=== PATIENT | male | born 1935 | race African-American/Black ===

== ENCOUNTER 2017-03-03 10:49 | Emergency (ER) | payer BC, MEDICARE ==
[~2017-03-03] VITALS: Ht 180.3 cm; Wt 77.1 kg
[~2017-03-03 10:49] MED LIST: ALLO300T PO; AMLO5TAB2 PO; BRIM10DR7 OU; CIPR500T PO; CIPR500T94 PO; CLON0.5T3 PO; DONE10TA7 PO; FLUT16SP NS; HYDR-2666 PO; LATA2.5D3 OS; LISI10TA2 PO; MEMA10TA PO; METO25TA4 PO; NIAC500T PO; OLOP30.5 NS; OXYB5TAB PO; POTA20TA12 PO; POTA20TA82 PO; TAMS0.4C2 PO; antibiotic cream; metoprolol PO; triamcinolone cream TOP
[2017-03-03 11:32] LABS: BASO # 0.1 x10^3/uL (0.0-0.2); BASO % 1 % (0-3); EOS % 3 % (0-3); HEMATOCRIT 40.5 % (39.0-53.0); HEMOGLOBIN 13.6 g/dL (13.0-17.5); LYMPH # 1.3 x10^3/uL (1.0-4.8); LYMPH % 12 % (24-48); MEAN CORPUSCULAR HEMOGLOBIN 30 pg (25-35); MEAN CORPUSCULAR HGB CONC 34 g/dL (31-37); MEAN CORPUSCULAR VOLUME 90 fL (79-100); MONO % 9 % (0-9); NEUT % 75 % (31-73); PLATELET COUNT 163 x10^3/uL (140-400); RED CELL DISTRIBUTION WIDTH 13.9 % (11.5-14.5); WHITE BLOOD COUNT 10.9 x10^3/uL (4.0-11.0)
--- NOTE | 2017-03-03 11:38 | RAD ---
Portable AP upright view CXR: Clinical indications: Near syncope. Comparison: August 08, 2015. Findings: An old granuloma of the left lung base is seen. This is stable. No acute lung infiltrate or pleural effusion or pulmonary edema or lung mass or pneumothorax is seen. The heart size, pulmonary vasculature, mediastinum and both brenton are unremarkable. Impression: No acute radiographic abnormality is seen.
[2017-03-03 11:43] LABS: CREATININE 1.3 mg/dL (0.7-1.3); GFR 64.4; INR 1.1 (0.8-1.1); POTASSIUM 3.5 mmol/L (3.5-5.1); PROTHROMBIN TIME PATIENT 13.8 SEC (11.7-14.0)
[2017-03-03 11:58] LABS: ALBUMIN 3.5 g/dL (3.4-5.0); ALBUMIN/GLOBULIN RATIO 1.1 (1.0-1.7); MAGNESIUM 1.8 mg/dL (1.8-2.4); TOTAL BILIRUBIN 0.6 mg/dL (0.2-1.0); TOTAL PROTEIN 6.8 g/dL (6.4-8.2)
[2017-03-03 12:13] LABS: BILIRUBIN,URINE SMALL (NEG); GLUCOSE,URINE NEGATIVE (NEG); NITRITE,URINE NEGATIVE (NEG); PH,URINE 5.5; PROTEIN,URINE 30 mg/dL (NEG-TRACE); UROBILINOGEN,URINE 0.2 mg/dL (0.2 mg/dL)
[2017-03-03 12:14] LABS: BARBITURATES NEG (NEG); BENZODIAZEPINES NEG (NEG); CANNABINOIDS NEG (NEG); COCAINE NEG (NEG); ETHANOL, URINE NEG (NEG); METHADONE NEG (NEG); OPIATES NEG (NEG); PHENCYCLIDINE NEG (NEG)
[2017-03-03 12:33] LABS: BACTERIA,URINE FEW /HPF (0-FEW); RBC,URINE 0 /HPF (0-2); SQUAMOUS EPITHELIAL CELL,UR FEW /LPF
--- NOTE | 2017-03-03 12:55 | RAD ---
Clinical indications: Near syncope. Weakness. Technique: Noncontrast axial cross sectional scanning of the head was performed. RS Compliance Statement: One or more of the following individualized dose reduction techniques were utilized for this examination: 1. Automated exposure control 2. Adjustment of the mA and/or kV according to patient size 3. 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 Smaller subarachnoid cyst of the right middle cranial fossa is seen. These findings are stable. No acute intracranial hemorrhage or midline shift or new mass-effect or progressive hydrocephalus or new extra-axial fluid collection is seen. Mild periventricular white matter hypodensity is seen consistent with chronic small vessel ischemic disease in this age group. No new focal hypodense area or sulci effacement is seen to indicate an acute infarct or edema radiographically. No skull fracture or pneumocephalus is seen. No opacification of the mastoid sinuses or the paranasal sinuses is seen. The maxillary sinuses are not completely seen in this study. Impression: No new intracranial abnormality is seen. Chronic small vessel ischemic disease. Stable subarachnoid cysts.
[2017-03-03 13:39] VITALS: BP 143/82
--- NOTE | 2017-03-03 16:01 | ED.ADGEN ---
Past Medical History Past Medical History: CVA, Glaucoma, Hypertension, Stroke, TIA, Other Additional Past Medical Histor: Deviated nasal septum, BPH, gout, blepharospasm Past Surgical History: Other Additional Past Surgical Histo: Bilat.Cataract & Detached retina surgeries. Alcohol Use: None Drug Use: None Adult General Chief Complaint Chief Complaint: NEAR SYNCOPE HPI HPI Patient is a 81 year old man, history of dementia, CVA, hypertension, facial tic, who presents to the emergency department with his family with report of a near-syncopal episode while at mandaeism. Per family report, as patient is nonverbal, patient was standing for approximately 5 minutes, in a warm mandaeism with his coat on, was noted to have sweating, and then began to fall. Patient was caught by family and lowered into his seat. Patient did not have full loss of consciousness. No vomiting, aside from diuresis, no other physical changes identified. Patient has no recent history of trauma, no similar symptoms previously. Not exhibiting any weakness, patient ambulates without difficulty baseline. Patient is following commands. Review of Systems Review of Systems Unable to respond verbally. Allergies Allergies Allergies Coded Allergies Type Severity Reaction Last Updated Verified lisinopril Allergy Severe SWELLING OF FACE AND LIPS 10/31/15 Yes Physical Exam Physical Exam Constitutional: Well developed, well nourished, no acute distress, non-toxic appearance. [] Patient noted to be diaphoretic. HENT: Normocephalic, atraumatic, bilateral external ears normal, oropharynx moist, no oral exudates, nose normal. [] Eyes: PERRLA, EOMI, conjunctiva normal, no discharge. [] Neck: Normal range of motion, no tenderness, supple, no stridor. [] Cardiovascular:Heart rate regular rhythm, no murmur, S1, S2, rubs or gallops. [] Lungs & Thorax: Bilateral breath sounds clear to auscultation , no wheezing, rhonchi, rales. No chest crepitus or tenderness. [] Abdomen: Bowel sounds normal, soft, no tenderness, no rebound, rigidity, no guarding, no masses, no pulsatile masses. [] Skin: Warm, diaphoresis, no erythema, no rash. [] Back: No tenderness, no CVA tenderness. [] Extremities: No tenderness, no cyanosis, no clubbing, ROM intact, no edema. Negative Homans sign. 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 Psychologic: Affect normal, judgement normal, mood normal. [] Current Patient Data Vital Signs Vital Signs Date Time Temp Pulse Resp B/P Pulse Ox O2 Delivery O2 Flow Rate FiO2 03/03/17 13:39 76 143/82 03/03/17 13:18 97 Room Air 03/03/17 10:50 98.0 20 98.0 Lab Values Laboratory Tests Test 03/03/17 11:25 03/03/17 11:55 White Blood Count 10.9x10^3/uL (4.0-11.0) Red Blood Count 4.50x10^6/uL (4.30-5.70) Hemoglobin 13.6g/dL (13.0-17.5) Hematocrit 40.5% (39.0-53.0) Mean Corpuscular Volume 90fL (79-100) Mean Corpuscular Hemoglobin 30pg (25-35) Mean Corpuscular Hemoglobin Concent 34g/dL (31-37) Red Cell Distribution Width 13.9% (11.5-14.5) Platelet Count 163x10^3/uL (140-400) Neutrophils (%) (Auto) 75% (31-73) H Lymphocytes (%) (Auto) 12% (24-48) L Monocytes (%) (Auto) 9% (0-9) Eosinophils (%) (Auto) 3% (0-3) Basophils (%) (Auto) 1% (0-3) Neutrophils # (Auto) 8.1x10^3uL (1.8-7.7) H Lymphocytes # (Auto) 1.3x10^3/uL (1.0-4.8) Monocytes # (Auto) 1.0x10^3/uL (0.0-1.1) Eosinophils # (Auto) 0.3x10^3/uL (0.0-0.7) Basophils # (Auto) 0.1x10^3/uL (0.0-0.2) Prothrombin Time 13.8SEC (11.7-14.0) Prothrombin Time INR 1.1 (0.8-1.1) PTT 27SEC (24-38) Sodium Level 141mmol/L (136-145) Potassium Level 3.5mmol/L (3.5-5.1) Chloride Level 103mmol/L (98-107) Carbon Dioxide Level 29mmol/L (21-32) Anion Gap 9 (6-14) Blood Urea Nitrogen 21mg/dL (8-26) Creatinine 1.3mg/dL (0.7-1.3) Estimated GFR (Cockcroft-Gault) 64.4 BUN/Creatinine Ratio 16 (6-20) Glucose Level 118mg/dL (70-99) H Calcium Level 9.0mg/dL (8.5-10.1) Magnesium Level 1.8mg/dL (1.8-2.4) Total Bilirubin 0.6mg/dL (0.2-1.0) Aspartate Amino Transferase (AST) 17U/L (15-37) Alanine Aminotransferase (ALT) 25U/L (16-63) Alkaline Phosphatase 92U/L (46-116) Troponin I Quantitative < 0.017ng/mL (0.000-0.055) ZT-Hok-G-Type Natriuretic Peptide 169pg/mL (0-449) Total Protein 6.8g/dL (6.4-8.2) Albumin 3.5g/dL (3.4-5.0) Albumin/Globulin Ratio 1.1 (1.0-1.7) Urine Collection Type U cath Urine Color Donna Urine Clarity Clear Urine pH 5.5 Urine Specific [place] 1.020 Urine Protein 30mg/dL (NEG-TRACE) Urine Glucose (UA) Negativemg/dL (NEG) Urine Ketones (Stick) Tracemg/dL (NEG) Urine Blood Negative (NEG) Urine Nitrite Negative (NEG) Urine Bilirubin Small (NEG) Urine Urobilinogen Dipstick 0.2mg/dL (0.2 mg/dL) Urine Leukocyte Esterase Small (NEG) Urine RBC 0/HPF (0-2) Urine WBC 1-4/HPF (0-4) Urine Squamous Epithelial Cells Few/LPF Urine Bacteria Few/HPF (0-FEW) Urine Hyaline Casts Few/HPF Urine Mucus Mod/LPF Urine Opiates Screen Neg (NEG) Urine Methadone Screen Neg (NEG) Urine Barbiturates Neg (NEG) Urine Phencyclidine Screen Neg (NEG) Urine Amphetamine/Methamphetamine Neg (NEG) Urine Benzodiazepines Screen Neg (NEG) Urine Cocaine Screen Neg (NEG) Urine Cannabinoids Screen Neg (NEG) Urine Ethyl Alcohol Neg (NEG) Laboratory Tests 03/03/17 11:25 Laboratory Tests 03/03/17 11:25 EKG EKG EC: Sinus rhythm, heart rate 66 bpm, left axis deviation with left anterior vesicular block noted, QTc of 408, UT of 216, QRS of 114, patient with contour normality is noted in the anterior septal leads, no significant ST elevations or depressions, abnormal ECG, does not meet STEMI criteria. As interpreted by me. [] Radiology/Procedures Radiology/Procedures [] [facility] [address] [place], [place] [id number] IMAGING REPORT Signed PATIENT: SATHISH PABLO ACCOUNT: [id number] : 1935 LOCATION: ER AGE: 81 SEX: M EXAM STATUS: REG ER ORD. PHYSICIAN: AMY RENTERIA DO REASON: Near syncope/weakness PROCEDURE: CT HEAD WO CONTRAST Clinical indications: Near syncope. Weakness. Technique: Noncontrast axial cross sectional scanning of the head was performed. PQRS Compliance Statement: One or more of the following individualized dose reduction techniques were utilized for this examination: 1. Automated exposure control 2. Adjustment of the mA and/or kV according to patient size 3. 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 Smaller subarachnoid cyst of the right middle cranial fossa is seen. These findings are stable. No acute intracranial hemorrhage or midline shift or new mass-effect or progressive hydrocephalus or new extra-axial fluid collection is seen. Mild periventricular white matter hypodensity is seen consistent with chronic small vessel ischemic disease in this age group. No new focal hypodense area or sulci effacement is seen to indicate an acute infarct or edema radiographically. No skull fracture or pneumocephalus is seen. No opacification of the mastoid sinuses or the paranasal sinuses is seen. The maxillary sinuses are not completely seen in this study. Impression: No new intracranial abnormality is seen. Chronic small vessel ischemic disease. Stable subarachnoid cysts. DICTATED and SIGNED BY: DIANN ROTH MD DATE: 03/03/17 1249 CC: AMY RENTERIA DO; GERALD MANCERA MD ~ Impressions: [facility] [address] [place], [place] [id number] IMAGING REPORT Signed PATIENT: SATHISH PABLO ACCOUNT: [id number] : 1935 LOCATION: ER AGE: 81 SEX: M EXAM STATUS: PRE ER ORD. PHYSICIAN: AMY RENTERIA DO REASON: Near syncope PROCEDURE: PORTABLE CHEST 1V Portable AP upright view CXR: Clinical indications: Near syncope. Comparison: August 08, 2015. Findings: An old granuloma of the left lung base is seen. This is stable. No acute lung infiltrate or pleural effusion or pulmonary edema or lung mass or pneumothorax is seen. The heart size, pulmonary vasculature, mediastinum and both brenton are unremarkable. Impression: No acute radiographic abnormality is seen. DICTATED and SIGNED BY: DIANN ROTH MD DATE: 03/03/17 1135 CC: AMY RENTERIA DO; GERALD MANCERA MD ~ Course & Med Decision Making Course & Med Decision Making Pertinent Labs and Imaging studies reviewed. (See chart for details) Patient with possible vasovagal syncope, had been standing in a warm mandaeism wearing his winter jacket, when events occurred. Patient is denying complaints, he is nonverbal, he is able to shake yes and no, and is following all commands appropriate. Due to history of previous CVA, and limited ability to interpret patient due to previous deficits, CT of the head obtained which was unremarkable , laboratory studies revealed mild ketonuria, consistent with report from patient's family that had not been drinking water over the past several days, laboratory studies are unremarkable. Initially after discussion, with family at bedside, they were in agreement patient be admitted to the hospital for observation and continued evaluation. However on reassessment, patient's states that she would like to take him home. As patient has remained stable in the emergency department, without any concerning findings, patient was ambulated in the emergency department was able to ambulate without difficulty, without recurrence of any concerning symptoms. After clear and detailed return instructions were given at bedside along with detailed return precautions, patient was discharged home with his family in stable condition follow-up with his PCP, and return to the ED if concerning symptoms to develop. Dragon Disclaimer Dragon Disclaimer This electronic medical record was generated, in whole or in part, using a voice recognition dictation system. Departure Impression: Primary Impression: Near syncope AMY RENTERIA DO Mar 03, 2017 16:01
--- NOTE | 2017-03-04 06:41 | EKG ---
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
== END 2017-03-03 13:43 | disposition home or self-care (01) ==
LOC: ER 10:49
DX: R55 Syncope and collapse (principal); M10.9 Gout, unspecified; Z86.73 Personal history of transient ischemic attack (TIA), and cerebral infarction without residual deficits; H40.9 Unspecified glaucoma; I10 Essential (primary) hypertension; F03.90 Unspecified dementia, unspecified severity, without behavioral disturbance, psychotic disturbance, mood disturbance, and anxiety; Z88.8 Allergy status to other drugs, medicaments and biological substances
CPT/HCPCS: 36415; 51701; 70450; 71010; 80053; 80305; 81001; 83735; 83880; 84484; 85027; 85610; 85730; 87086; 93005; G0481; 99285-25

== ENCOUNTER 2017-05-14 19:33 | Observation (INO) | payer BC ==
[~2017-05-14] VITALS: Ht 180.3 cm; Wt 69.1 kg
[~2017-05-14 19:33] MED LIST changes: -HYDR-2666 PO; +HYDR-2758 PO; +LATA2.5D3 LEFTEYE; -LATA2.5D3 OS
[2017-05-14 20:19] LABS: BASO % 0 % (0-3); EOS % 3 % (0-3); HEMATOCRIT 42.6 % (39.0-53.0); HEMOGLOBIN 14.3 g/dL (13.0-17.5); LYMPH # 1.3 x10^3/uL (1.0-4.8); LYMPH % 18 % (24-48); MEAN CORPUSCULAR HEMOGLOBIN 30 pg (25-35); MEAN CORPUSCULAR HGB CONC 34 g/dL (31-37); MEAN CORPUSCULAR VOLUME 89 fL (79-100); MONO % 12 % (0-9); NEUT % 68 % (31-73); PLATELET COUNT 157 x10^3/uL (140-400); RED BLOOD COUNT 4.79 x10^6/uL (4.30-5.70); RED CELL DISTRIBUTION WIDTH 14.8 % (11.5-14.5); WHITE BLOOD COUNT 7.3 x10^3/uL (4.0-11.0)
[2017-05-14 20:23] LABS: CALCIUM 9.2 mg/dL (8.5-10.1); CREATININE 1.1 mg/dL (0.7-1.3); GFR 78.1; POTASSIUM 4.4 mmol/L (3.5-5.1)
[2017-05-14 20:28] LABS: ALBUMIN 3.6 g/dL (3.4-5.0); ALBUMIN/GLOBULIN RATIO 0.9 (1.0-1.7); MAGNESIUM 1.9 mg/dL (1.8-2.4); TOTAL BILIRUBIN 0.3 mg/dL (0.2-1.0); TOTAL PROTEIN 7.4 g/dL (6.4-8.2)
[2017-05-14 20:36] LABS: CKMB MASS 0.5 ng/mL (0.0-3.6)
[2017-05-14 22:10] LABS: BILIRUBIN,URINE NEGATIVE (NEG); GLUCOSE,URINE NEGATIVE (NEG); NITRITE,URINE NEGATIVE (NEG); PROTEIN,URINE 100 mg/dL (NEG-TRACE); UROBILINOGEN,URINE 0.2 mg/dL (0.2 mg/dL)
[2017-05-14 22:23] LABS: BACTERIA,URINE 0 /HPF (0-FEW)
--- NOTE | 2017-05-14 22:27 | RAD ---
EXAM: Head CT without contrast. HISTORY: Altered mental status. Syncope. TECHNIQUE: Computed tomographic images of the head were obtained without contrast. *One or more of the following individualized dose reduction techniques were utilized for this examination: 1. Automated exposure control. 2. Adjustment of the mA and/or kV according to patient size. 3. Use of iterative reconstruction technique. COMPARISON: 03/03/2017. FINDINGS: There is no acute or subacute extra-axial or intraparenchymal hemorrhage. There is no mass effect or midline shift. There is no hydrocephalus. There is increased extra-axial space within the left middle cranial fossa measuring 4.1 cm, likely an arachnoid cyst. This is superimposed on temporal lobe predominant cerebral atrophy. There are scattered areas of hypodensity throughout the cerebral white matter, likely due to chronic small vessel disease. There is increased density within the right lobe and there is a left scleral band device. The mastoid air cells are clear. No calvarial lesion is seen. IMPRESSION: 1. Scattered areas of hypodensity within the cerebral white matter, a nonspecific finding likely due to chronic small processes. 2. Bilateral temporal lobe predominant cerebral atrophy. 3. Suspected arachnoid cyst within the left middle cranial fossa, of no clinical significance. 4. Cerebral volume loss. 5. Note is made that MRI is more sensitive for acute infarction. Electronically signed by: Nida Laureano MD (05/14/2017 10:24 PM)
--- NOTE | 2017-05-14 22:49 | PHYS DOC ---
Past Medical History Past Medical History: CVA, Glaucoma, Hypertension, Stroke, TIA, Other Additional Past Medical Histor: Deviated nasal septum, BPH, gout, blepharospasm Past Medical History Alzheimer Disease Blephorspasm Muscle Movement disorder of Mouth Past Surgical History: Other Additional Past Surgical Histo: Bilat.Cataract & Detached retina surgeries. Alcohol Use: None Drug Use: None Adult General Chief Complaint Chief Complaint: MECHANICAL FALL HPI HPI Patient is a 81 year old MALE who presents with Episode of appearing stiff and shaking fell back in chair. No LOC , no loss of bowel or bladder function. states pt fell hit head approx 2 weeks ago After fall pt couldnt get up and called EMS. Per he looked fine, EMS sat him up in chair and he finished his dinner. Then brought him to ER to get checked out. concerned possible seizure Per pt currently at baseline neurologically Review of Systems Review of Systems Constitutional: Denies fever or chills [] Eyes: Denies change in visual acuity, redness, or eye pain [] HENT: Denies nasal congestion or sore throat [] Respiratory: Denies cough or shortness of breath [] Cardiovascular: No additional information not addressed in HPI [] GI: Denies abdominal pain, nausea, vomiting, bloody stools or diarrhea [] : Denies dysuria or hematuria [] Musculoskeletal: Denies back pain or joint pain [] Integument: Denies rash or skin lesions [] Neurologic: Denies headache, focal weakness or sensory changes [ Allergies Allergies Allergies Coded Allergies Type Severity Reaction Last Updated Verified lisinopril Allergy Severe SWELLING OF FACE AND LIPS 10/31/15 Yes Physical Exam Physical Exam Constitutional: Pt alert and answers some questions appropriately, Pt with some blephrospams and abnormal mouth muscle movements ---All baseline per ] HENT: Normocephalic, Abrasion L forehead, bilateral external ears normal, oropharynx moist, no oral exudates, nose normal. [] Eyes: PERRL, conjunctiva normal, no discharge. [] Neck: Normal range of motion, no tenderness, supple, no stridor. [] Cardiovascular:Heart rate regular rhythm, no murmur [] Lungs & Thorax: Bilateral breath sounds clear to auscultation [] Abdomen: Bowel sounds normal, soft, no tenderness, no masses, no pulsatile masses. [] Skin: Warm, dry, no erythema, no rash. [] Back: No tenderness, no CVA tenderness. [] Extremities: No tenderness, no cyanosis, no clubbing, ROM intact, no edema. [] Neurologic: Alert and oriented X 1 no focal deficits noted. Pt dementia limits ability to perform NIH Current Patient Data Vital Signs Vital Signs Date Time Temp Pulse Resp B/P (MAP) Pulse Ox O2 Delivery O2 Flow Rate FiO2 05/14/17 22:15 73 21 162/87 (112) 96 05/14/17 21:30 Room Air 05/14/17 19:55 97.7 97.7 Lab Values Laboratory Tests Test 05/14/17 19:45 05/14/17 22:00 White Blood Count 7.3 x10^3/uL (4.0-11.0) Red Blood Count 4.79 x10^6/uL (4.30-5.70) Hemoglobin 14.3 g/dL (13.0-17.5) Hematocrit 42.6 % (39.0-53.0) Mean Corpuscular Volume 89 fL (79-100) Mean Corpuscular Hemoglobin 30 pg (25-35) Mean Corpuscular Hemoglobin Concent 34 g/dL (31-37) Red Cell Distribution Width 14.8 % (11.5-14.5) H Platelet Count 157 x10^3/uL (140-400) Neutrophils (%) (Auto) 68 % (31-73) Lymphocytes (%) (Auto) 18 % (24-48) L Monocytes (%) (Auto) 12 % (0-9) H Eosinophils (%) (Auto) 3 % (0-3) Basophils (%) (Auto) 0 % (0-3) Neutrophils # (Auto) 4.9 x10^3uL (1.8-7.7) Lymphocytes # (Auto) 1.3 x10^3/uL (1.0-4.8) Monocytes # (Auto) 0.8 x10^3/uL (0.0-1.1) Eosinophils # (Auto) 0.2 x10^3/uL (0.0-0.7) Basophils # (Auto) 0.0 x10^3/uL (0.0-0.2) Sodium Level 140 mmol/L (136-145) Potassium Level 4.4 mmol/L (3.5-5.1) Chloride Level 105 mmol/L (98-107) Carbon Dioxide Level 30 mmol/L (21-32) Anion Gap 5 (6-14) L Blood Urea Nitrogen 24 mg/dL (8-26) Creatinine 1.1 mg/dL (0.7-1.3) Estimated GFR (Cockcroft-Gault) 78.1 BUN/Creatinine Ratio 22 (6-20) H Glucose Level 129 mg/dL (70-99) H Calcium Level 9.2 mg/dL (8.5-10.1) Magnesium Level 1.9 mg/dL (1.8-2.4) Total Bilirubin 0.3 mg/dL (0.2-1.0) Aspartate Amino Transferase (AST) 15 U/L (15-37) Alanine Aminotransferase (ALT) 22 U/L (16-63) Alkaline Phosphatase 95 U/L (46-116) Creatine Kinase 32 U/L (39-308) L Creatine Kinase MB (Mass) 0.5 ng/mL (0.0-3.6) Creatine Kinase MB Relative Index 1.6 % (0-4) Troponin I Quantitative < 0.017 ng/mL (0.000-0.055) Total Protein 7.4 g/dL (6.4-8.2) Albumin 3.6 g/dL (3.4-5.0) Albumin/Globulin Ratio 0.9 (1.0-1.7) L Urine Collection Type U cath Urine Color Yellow Urine Clarity Clear Urine pH 7.0 Urine Specific [place] 1.020 Urine Protein 100 mg/dL (NEG-TRACE) Urine Glucose (UA) Negative mg/dL (NEG) Urine Ketones (Stick) Negative mg/dL (NEG) Urine Blood Negative (NEG) Urine Nitrite Negative (NEG) Urine Bilirubin Negative (NEG) Urine Urobilinogen Dipstick 0.2 mg/dL (0.2 mg/dL) Urine Leukocyte Esterase Small (NEG) Urine RBC 11-20 /HPF (0-2) Urine WBC 1-4 /HPF (0-4) Urine Bacteria 0 /HPF (0-FEW) Urine Hyaline Casts Occasional /HPF Urine Mucus Mod /LPF Laboratory Tests 05/14/17 19:45 Laboratory Tests 05/14/17 19:45 Microbiology 05/14/17 Urine Culture - Preliminary, Resulted 05/14/17 Urine Culture Result 1 (RYLEY) - Preliminary, Resulted EKG EKG EKG- interpreted by ER physician--sinus rhythm no STEMI Radiology/Procedures Radiology/Procedures PATIENT: SATHISH PABLO ACCOUNT: [id number] : 1935 LOCATION: AGE: 81 SEX: M EXAM STATUS: REG ER ORD. PHYSICIAN: DAX KIM MD REASON: syncope PROCEDURE: CT HEAD WO CONTRAST EXAM: Head CT without contrast. HISTORY: Altered mental status. Syncope. TECHNIQUE: Computed tomographic images of the head were obtained without contrast. *One or more of the following individualized dose reduction techniques were utilized for this examination: 1. Automated exposure control. 2. Adjustment of the mA and/or kV according to patient size. 3. Use of iterative reconstruction technique. COMPARISON: 03/03/2017. FINDINGS: There is no acute or subacute extra-axial or intraparenchymal hemorrhage. There is no mass effect or midline shift. There is no hydrocephalus. There is increased extra-axial space within the left middle cranial fossa measuring 4.1 cm, likely an arachnoid cyst. This is superimposed on temporal lobe predominant cerebral atrophy. There are scattered areas of hypodensity throughout the cerebral white matter, likely due to chronic small vessel disease. There is increased density within the right lobe and there is a left scleral band device. The mastoid air cells are clear. No calvarial lesion is seen. IMPRESSION: 1. Scattered areas of hypodensity within the cerebral white matter, a nonspecific finding likely due to chronic small processes. 2. Bilateral temporal lobe predominant cerebral atrophy. 3. Suspected arachnoid cyst within the left middle cranial fossa, of no clinical significance. 4. Cerebral volume loss. 5. Note is made that MRI is more sensitive for acute infarction. Electronically signed by: Nida Lott MD (05/14/2017 10:24 PM) DICTATED and SIGNED BY: NIDA LOTT MD DATE: 05/14/172218 CC: DAX KIM MD; GERALD MANCERA MD ~ PATIENT: SATHISH PABLO ACCOUNT: [id number] : 1935 LOCATION: [address] AGE: 81 SEX: M EXAM STATUS: ADM IN ORD. PHYSICIAN: DAX KIM MD REASON: syncope PROCEDURE: CHEST AP ONLY Portable chest, 05/14/2017: History: Syncope Comparison is made to a study from 03/03/2017. The heart size and pulmonary vascularity are normal. There is calcific plaquing of the aorta. There is mild linear atelectasis and/or scarring in the lung bases. The upper lung ovalle are clear. There is no evidence of pleural fluid. IMPRESSION: Minimal bibasilar linear atelectasis and/or scarring. DICTATED and SIGNED BY: GRETA DE LA TORRE MD DATE: 05/15/17 0759 CC: DAX KIM MD; GERALD MANCERA MD; HEYDI HE MD ~ [] Impressions: ACUTE NEUROLOGIC EVENT SUDDEN COLLAPSE Course & Med Decision Making Course & Med Decision Making Pertinent Labs and Imaging studies reviewed. (See chart for details) [] Dragon Disclaimer Dragon Disclaimer This electronic medical record was generated, in whole or in part, using a voice recognition dictation system. Departure Departure Referrals: GERALD MANCERA MD (PCP) DAX KIM MD May 14, 2017 22:49
--- NOTE | 2017-05-14 23:14 | EKG ---
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
[2017-05-15] MEDS ORDERED: ONDANSETRON PF 4 MG/2 ML VIAL. IV PRN
[2017-05-15 00:35] VITALS: BP 147/85
--- NOTE | 2017-05-15 00:44 | ACF ---
Admission Forms Criteria SEIZURE Clinical Indications for Admission to Inpatient Care (Place 'X' for any and all applicable criteria): Admission is indicated for seizure and ANY ONE of the following(1)(2)(3)(4)(5): [X]I. Inpatient admission required rather than observation care (Also use Seizure: Observation Care Criteria as appropriate) because of ANY ONE of the following: [ ]a) Altered mental status that is severe or persistent [ ]b) New focal neurologic deficit that is severe or persistent [ ]c) Metabolic disorder (eg, hypoglycemia, hyponatremia) that is severe or persistent [ ]d) Recurrent seizure [ ]e) Outpatient antiseizure regimen cannot be established (eg , patient cannot tolerate medication, initiation requires inpatient care) [ ]f) Need for ongoing intravenous infusion of antiseizure medication [ ]g) Cardiac arrhythmias of immediate concern [ ]h) Cerebral bleeding, hydrocephalus, or vasospasm monitoring (14) [ ]i) Increased intracranial pressure or cerebral edema monitoring (15) [X]j) Other treatment or monitoring requiring inpatient admission [ ]II. Status epilepticus [A] or repetitive seizures not controlled with emergent treatment (6)(8) [ ]III. Brain disorder (eg, tumor, edema, and hydrocephalus) that requiring monitoring or intervention available only at inpatient level of care. [ ]IV. Brain insult (eg, severe trauma, stroke, drug toxicity, or withdrawal) that requires monitoring or intervention available only at inpatient level of care (10)(11) Extended stay beyond goal length of stay may be needed for (22) [ ]a) Complications of status epilepticus [ ]b) Refractory status epilepticus [ ]c) Etiology-specific therapy for conditions such as COOKING SHOW HOST infection, head injury,eclampsia, severe metabolic abnormalities, and brain tumor [ ]d) Residual neurologic damage, [ ]e) Initiation of significant change to anticonvulsant treatment [ ]f) Older patients (65 years or older) [ ]g) Patient requiring intubation (eg, to protect airway) The original [employer] content created by [employer] has been revised. The portions of the content which have been revised are identified through the use of italic text or in bold, and [facility] [employer] has neither reviewed nor approved the modified material. All other unmodified content is copyright [facility]. Please see references footnoted in the original [facility] edition 2016 Admission Criteria Met?: Yes KIRILL LIMA May 15, 2017 00:44
[2017-05-15] MEDS ORDERED: AMLO10TA2 PO (00:47)
[2017-05-15] MEDS ORDERED: CITA40TA5 PO (00:47)
[2017-05-15] MEDS ORDERED: BRIM5DRO2 OU (00:47)
[2017-05-15] MEDS ORDERED: CARB15DR3 OP (00:49)
[2017-05-15] MEDS ORDERED: MELA3TAB2 PO (00:49)
[2017-05-15] MEDS ORDERED: LUBI8CAP4 PO (00:49)
[2017-05-15] MEDS ORDERED: HALOPERIDOL LACTATE 5 MG/ML VIAL. IVP ONE (01:15)
[2017-05-15 07:25] VITALS: BP 145/85
--- NOTE | 2017-05-15 08:02 | RAD ---
Portable chest, 05/14/2017: History: Syncope Comparison is made to a study from 03/03/2017. The heart size and pulmonary vascularity are normal. There is calcific plaquing of the aorta. There is mild linear atelectasis and/or scarring in the lung bases. The upper lung ovalle are clear. There is no evidence of pleural fluid. IMPRESSION: Minimal bibasilar linear atelectasis and/or scarring.
[2017-05-15 10:52] VITALS: BP 179/95
[2017-05-15 14:55] VITALS: BP 145/78
--- NOTE | 2017-05-15 16:12 | PDOC2 ---
NEUROLOGY CONSULT Date of Admission Date of Admission DATE: 05/15/17 TIME: 15:55 Reason for Consult Reason for Consult: IMPRESSION: Seizure or seizure like episode, new onset on 05/14/17. Fall HTN CVA, TIA in past. Dementia, AD Blepharospasm, chronic Gout. Abnormal TSH level RECOMMENDATIONS/PLAN: Brain MRI w/wo contrast plus seizure protocol. EEG Lab: see orders. Treat medical diseases. OT/PT Discussed with his at bedside on 05/15/17. HCT: No acute findings. Temporal lobe atrophy. HISTORY OF THE PRESENT ILLNESS: 81-y-old male patient with above medical diseases had a seizure on per his . His described that the patient was sitting eating his dinner, he suddenly lost consciousness with shaking movements in his UE then fell back on floor from his chair. He was confused after this event. No Hx of seizure in the past. No seizure since in the hospital. PAST MEDICAL HISTORY: Please see above. PAST SURGERY HISTORY: Cataracts surgery. Retina surgery for retina detachment. ALLERGY: Unknown MEDICATIONS: Refer to [facility] FAMILY HISTORY: Non contributory. SOCIAL HISTORY: Denies current smoking, drinking, and illicit drug use. REVIEW OF SYSTEMS: Constitutional: No malnutrition, weight loss, cachexia. Head: No traumatic brain or head injury. Skin: No edema, or rash. Ear: No infection. Eyes: Blepharospasm Nose: No bleeding or purulent discharges. Hearing: Hearing decrease. Neck: No recent injury. Cardiac: HTN. Pulmonary: No COPD. GI: No GI ulcer, GI bleeding. Urinary/genital: Hematuria. Endocrinologic: No cousin face, craniofacial dysmorphism, polydactyly. Skeletomuscular: No muscular atrophy, deformity. Neurological: see HP. Psychiatric: Denies drug use/abuse. Otherwise, not [id number] review of systems. PHYSICAL EXAMINATION: General appearance is in chronic acute distress. HEENT: Normocephalic and nontraumatic. Eyes, nose, ears, and throat are unremarkable. Neck is supple. No lymphadenopathy. No crepitus. Cardiovascular: S1, S2, regular rate and rhythm. Pulmonary: Clear to auscultation bilaterally. Abdomen: Bowel sounds are positive. Extremities: No rash, lesions, or edema. No restriction of range of motion NEUROLOGICAL EXAMINATION: Awake. Not able to follow commands well. Not oriented to time, place but knows person. PERRL. EOMI. CN: no focal findings. Muscle tone: fluctuated. Muscle strength: 4+ DTR: 2- Plantar reflex: Neutral response bilaterally Gait: not examined in bed. Sensory exam: no acute abnormal findings. No acute cerebellar signs elicited. F-T-N test not performed due to unable to follow commands. Current Medications Current Medications Current Medications Ondansetron HCl (Zofran) 4 mg PRN Q8HRS PRN IV NAUSEA/VOMITING; Start 05/15/17 at 00:00; Stop 05/15/17 at 23:59 Haloperidol Lactate (Haldol) 5 mg 1X ONCE IVP Last administered on 05/15/17t 01:03; Start 05/15/17 at 01:15; Stop 05/15/17 at 01:16; Status DC Active Scripts Active Reported Melatonin 3 Mg Tablet 3 Mg PO HS Amitiza (Lubiprostone) 8 Mcg Capsule 8 Mcg PO BID PRN Refresh Optive Eye Drops (Carboxymethylcellulos/Glycerin) 15 Ml Drops 15 Ml OP BID Combigan Eye Drops (Brimonidine Tartrate/Timolol) 5 Ml Drops 5 Ml OU BID Citalopram Hbr (Citalopram Hydrobromide) 40 Mg Tablet 40 Mg PO DAILY Amlodipine Besylate 10 Mg Tablet 10 Mg PO DAILY Potassium Chloride 20 Meq Tab.er.prt 20 Meq PO BID Latanoprost 2.5 Ml Drops 1 Drop LEFTEYE HS Namenda (Memantine Hcl) 10 Mg Tablet 10 Mg PO BID Donepezil Hcl 10 Mg Tablet 10 Mg PO HS Allopurinol 300 Mg Tablet 300 Mg PO DAILY Allergies Allergies: Coded Allergies: lisinopril (Verified Allergy, Severe, SWELLING OF FACE AND LIPS, 10/31/15) Vitals VITALS Vital Signs Date Time Temp Pulse Resp B/P (MAP) Pulse Ox O2 Delivery O2 Flow Rate FiO2 05/15/17 14:55 98.0 74 18 145/78 (100) 96 Room Air 98.0 Labs Labs Laboratory Tests Test 05/14/17 19:45 05/14/17 22:00 05/15/17 11:10 White Blood Count 7.3 x10^3/uL (4.0-11.0) Red Blood Count 4.79 x10^6/uL (4.30-5.70) Hemoglobin 14.3 g/dL (13.0-17.5) Hematocrit 42.6 % (39.0-53.0) Mean Corpuscular Volume 89 fL (79-100) Mean Corpuscular Hemoglobin 30 pg (25-35) Mean Corpuscular Hemoglobin Concent 34 g/dL (31-37) Red Cell Distribution Width 14.8 % (11.5-14.5) Platelet Count 157 x10^3/uL (140-400) Neutrophils (%) (Auto) 68 % (31-73) Lymphocytes (%) (Auto) 18 % (24-48) Monocytes (%) (Auto) 12 % (0-9) Eosinophils (%) (Auto) 3 % (0-3) Basophils (%) (Auto) 0 % (0-3) Neutrophils # (Auto) 4.9 x10^3uL (1.8-7.7) Lymphocytes # (Auto) 1.3 x10^3/uL (1.0-4.8) Monocytes # (Auto) 0.8 x10^3/uL (0.0-1.1) Eosinophils # (Auto) 0.2 x10^3/uL (0.0-0.7) Basophils # (Auto) 0.0 x10^3/uL (0.0-0.2) Sodium Level 140 mmol/L (136-145) Potassium Level 4.4 mmol/L (3.5-5.1) Chloride Level 105 mmol/L (98-107) Carbon Dioxide Level 30 mmol/L (21-32) Anion Gap 5 (6-14) Blood Urea Nitrogen 24 mg/dL (8-26) Creatinine 1.1 mg/dL (0.7-1.3) Estimated GFR (Cockcroft-Gault) 78.1 BUN/Creatinine Ratio 22 (6-20) Glucose Level 129 mg/dL (70-99) Calcium Level 9.2 mg/dL (8.5-10.1) Magnesium Level 1.9 mg/dL (1.8-2.4) Total Bilirubin 0.3 mg/dL (0.2-1.0) Aspartate Amino Transf (AST/SGOT) 15 U/L (15-37) Alanine Aminotransferase (ALT/SGPT) 22 U/L (16-63) Alkaline Phosphatase 95 U/L (46-116) Creatine Kinase 32 U/L (39-308) Creatine Kinase MB (Mass) 0.5 ng/mL (0.0-3.6) Creatine Kinase MB Relative Index 1.6 % (0-4) Troponin I Quantitative < 0.017 ng/mL (0.000-0.055) Total Protein 7.4 g/dL (6.4-8.2) Albumin 3.6 g/dL (3.4-5.0) Albumin/Globulin Ratio 0.9 (1.0-1.7) Urine Collection Type U cath Urine Color Yellow Urine Clarity Clear Urine pH 7.0 Urine Specific [place] 1.020 Urine Protein 100 mg/dL (NEG-TRACE) Urine Glucose (UA) Negative mg/dL (NEG) Urine Ketones (Stick) Negative mg/dL (NEG) Urine Blood Negative (NEG) Urine Nitrite Negative (NEG) Urine Bilirubin Negative (NEG) Urine Urobilinogen Dipstick 0.2 mg/dL (0.2 mg/dL) Urine Leukocyte Esterase Small (NEG) Urine RBC 11-20 /HPF (0-2) Urine WBC 1-4 /HPF (0-4) Urine Bacteria 0 /HPF (0-FEW) Urine Hyaline Casts Occasional /HPF Urine Mucus Mod /LPF Vitamin B12 Level 1164 pg/mL (247-911) Thyroid Stimulating Hormone (TSH) 0.264 uIU/mL (0.358-3.74) Laboratory Tests Test 05/14/17 19:45 05/14/17 22:00 05/15/17 11:10 White Blood Count 7.3 x10^3/uL (4.0-11.0) Red Blood Count 4.79 x10^6/uL (4.30-5.70) Hemoglobin 14.3 g/dL (13.0-17.5) Hematocrit 42.6 % (39.0-53.0) Mean Corpuscular Volume 89 fL (79-100) Mean Corpuscular Hemoglobin 30 pg (25-35) Mean Corpuscular Hemoglobin Concent 34 g/dL (31-37) Red Cell Distribution Width 14.8 % (11.5-14.5) Platelet Count 157 x10^3/uL (140-400) Neutrophils (%) (Auto) 68 % (31-73) Lymphocytes (%) (Auto) 18 % (24-48) Monocytes (%) (Auto) 12 % (0-9) Eosinophils (%) (Auto) 3 % (0-3) Basophils (%) (Auto) 0 % (0-3) Neutrophils # (Auto) 4.9 x10^3uL (1.8-7.7) Lymphocytes # (Auto) 1.3 x10^3/uL (1.0-4.8) Monocytes # (Auto) 0.8 x10^3/uL (0.0-1.1) Eosinophils # (Auto) 0.2 x10^3/uL (0.0-0.7) Basophils # (Auto) 0.0 x10^3/uL (0.0-0.2) Sodium Level 140 mmol/L (136-145) Potassium Level 4.4 mmol/L (3.5-5.1) Chloride Level 105 mmol/L (98-107) Carbon Dioxide Level 30 mmol/L (21-32) Anion Gap 5 (6-14) Blood Urea Nitrogen 24 mg/dL (8-26) Creatinine 1.1 mg/dL (0.7-1.3) Estimated GFR (Cockcroft-Gault) 78.1 BUN/Creatinine Ratio 22 (6-20) Glucose Level 129 mg/dL (70-99) Calcium Level 9.2 mg/dL (8.5-10.1) Magnesium Level 1.9 mg/dL (1.8-2.4) Total Bilirubin 0.3 mg/dL (0.2-1.0) Aspartate Amino Transf (AST/SGOT) 15 U/L (15-37) Alanine Aminotransferase (ALT/SGPT) 22 U/L (16-63) Alkaline Phosphatase 95 U/L (46-116) Creatine Kinase 32 U/L (39-308) Creatine Kinase MB (Mass) 0.5 ng/mL (0.0-3.6) Creatine Kinase MB Relative Index 1.6 % (0-4) Troponin I Quantitative < 0.017 ng/mL (0.000-0.055) Total Protein 7.4 g/dL (6.4-8.2) Albumin 3.6 g/dL (3.4-5.0) Albumin/Globulin Ratio 0.9 (1.0-1.7) Urine Collection Type U cath Urine Color Yellow Urine Clarity Clear Urine pH 7.0 Urine Specific [place] 1.020 Urine Protein 100 mg/dL (NEG-TRACE) Urine Glucose (UA) Negative mg/dL (NEG) Urine Ketones (Stick) Negative mg/dL (NEG) Urine Blood Negative (NEG) Urine Nitrite Negative (NEG) Urine Bilirubin Negative (NEG) Urine Urobilinogen Dipstick 0.2 mg/dL (0.2 mg/dL) Urine Leukocyte Esterase Small (NEG) Urine RBC 11-20 /HPF (0-2) Urine WBC 1-4 /HPF (0-4) Urine Bacteria 0 /HPF (0-FEW) Urine Hyaline Casts Occasional /HPF Urine Mucus Mod /LPF Vitamin B12 Level 1164 pg/mL (247-911) Thyroid Stimulating Hormone (TSH) 0.264 uIU/mL (0.358-3.74) CALLIE GALLEGOS MD May 15, 2017 16:12
[2017-05-15] MEDS ORDERED: GADOBUTROL 7.5 MMOL/7.5 ML VIAL IV ONE (16:15)
--- NOTE | 2017-05-15 17:10 | RAD ---
MRI Brain with and without contrast History: Seizure, previous stroke Technique: Multiplanar, multi sequential pre and postcontrast MR imaging was performed of the brain. Comparison: None Findings: There is motion degradation. There is no convincing evidence of recent infarct or cytotoxic edema. Ventricular size is proportionate to the sulcal spaces, mild generalized supratentorial involutional change. There is overall mild T2 and FLAIR hyperintense abnormality of the supratentorial periventricular white matter bilaterally, some extent to the deep white matter greatest of the frontoparietal lobes. There is some encephalomalacia with cortical involvement of the anterior right temporal lobe, also of the anterior left temporal lobe. 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 There is no midline shift or extra-axial fluid collection. There is no convincing significant hemosiderin deposition the brain parenchyma. There are small mucous retention cysts of the anterior maxillary sinuses bilaterally. There has been lens surgery bilaterally. There is abnormal signal in the right globe. Cerebellar tonsils are normal in location. There is preservation of marrow signal of the clivus. There is no significant abnormality of the pineal gland or pituitary gland. Impression: 1. There are foci of encephalomalacia with cortical involvement of the temporal lobes bilaterally with associated gliosis. Findings may be due to sequela of previous trauma or infarcts. 2. Other mild T2 and FLAIR hyperintense abnormality of the supratentorial matter is nonspecific although likely due to chronic microvascular ischemic disease in patient this age. 3. There is generalized supratentorial atrophy. 4. There is abnormal signal in the right globe, could be due to sequela of hemorrhage/chorioretinal detachment. Electronically signed by: Jose Simental MD (05/15/2017 5:06 PM)
[2017-05-15 17:23] LABS: FREE T4 1.02 ng/dL (0.76-1.46)
--- NOTE | 2017-05-15 19:30 | HP ---
ADMIT DATE: 05/15/2017 CHIEF COMPLAINT: Seizure activity. HISTORY OF PRESENT ILLNESS: The patient is a pleasant elderly male who had a witnessed shaking and stiffness by his . She called the ambulance. When they arrived, they set him up in a chair. When he finished his dinner, they left. She brought him to the ER for evaluation. He is now being admitted overnight for observation. This morning, he is doing better but still shaking a little bit. PAST MEDICAL HISTORY: Glaucoma, stroke, hypertension, hyperlipidemia, TIAs, deviated septum, BPH, gout, bilateral cataracts, and detached retina. ALLERGIES: LISINOPRIL. FAMILY HISTORY: Coronary artery disease. SOCIAL HISTORY: Does not drink, smoke, or take drugs. He is retired and lives at home with his . MEDICATIONS: Reviewed. Please see the MRAD. REVIEW OF SYSTEMS: Unreliable at this time as the patient is too confused. PHYSICAL EXAMINATION: VITAL SIGNS: Temperature afebrile, pulse 92, respirations 18, and blood pressure 132/60. GENERAL: He is awake. He is shaking. HEART: Normal S1, S2. LUNGS: Clear. ABDOMEN: Soft. EXTREMITIES: No edema. SKIN: No rashes. PSYCHIATRIC: He is nonverbal at this time. ENDOCRINE: No thyromegaly. LYMPHATICS: No cervical nodes. HEMATOPOIETIC: No bruising. NEUROLOGICAL: He is shaking a little bit. LABORATORY DATA: White count 7, hemoglobin 14, and platelets 157. Electrolytes are pending. Urinalysis: Small amount of leukocyte esterase and 1 to 4 white cells. ASSESSMENT AND PLAN: Possible seizure with incidental finding of abnormal urinalysis consistent with possible urinary tract infection. We will go ahead and admit the patient and consult Neurology. Suspect he will need an MRI. Seizure precautions, IV antibiotics, IV fluids. Continue home medicines. JIM WEINER DO DR: LUIS/brennan JOB#: [id number] / [id number]
[2017-05-15 19:46] VITALS: BP 153/88
--- NOTE | 2017-05-15 21:03 | EEG ---
DATE OF SERVICE: 05/15/2017 EEG NUMBER: [id number]. OBJECTIVE: This is a 81-year-old male patient who had a seizure or seizure-like episode on 05/14/2017. EEG was requested to evaluate seizure activity. METHODS: Twenty electrodes were applied according to the international 10-20 electrode placement system. EKG monitoring, hyperventilation, intermittent photic stimulation, monopolar and bipolar montages are routinely utilized. The record was obtained on a digital system with video monitoring. MEDICATION: No anti-seizure medication. FINDINGS: 1. Background: The patient was recorded in the awake, drowsy and sleep states. The overall background amplitude is 10-20 microvolts. A posterior dominant rhythm of 8 Hz is observed. 2. Abnormality: No specific epileptiform discharges or electrographic seizure seen. No diffuse slowing. 3. Activation: Hyperventilation was not performed because the patient was unable to follow the commands. Intermittent photic stimulation was performed with photic driving. IMPRESSION: This EEG is a borderline study for the awake, drowsy, and sleep states. No focal, lateralizing, specific epileptiform discharge or electrographic seizure is seen. CALLIE GALLEGOS MD DR: MEGHAN/brennan JOB#: [id number] / [id number] TEVIN
[2017-05-15 23:19] VITALS: BP 163/89
[2017-05-16 03:19] VITALS: BP 173/95
[2017-05-16 07:40] VITALS: BP 167/101
[2017-05-16] MEDS ORDERED: LUBIPROSTONE 8 MCG CAPSULE PO PRN (09:45)
[2017-05-16] MEDS ORDERED: MEMANTINE 10 MG TABLET. PO SCH (10:00)
[2017-05-16] MEDS ORDERED: POLYVINYL ALCOHOL 1.4% OPHTH SOLUTION 15ML BOTTLE. OU SCH (10:00)
[2017-05-16] MEDS ORDERED: ALLOPURINOL 300 MG TABLET. PO SCH (10:00)
[2017-05-16] MEDS ORDERED: POTASSIUM CHLORIDE 20 MEQ TABLET.ER. PO SCH (10:00)
[2017-05-16] MEDS ORDERED: BRIMONIDINE 0.2% OPHTH SOLUTION 5ML BOTTLE. OU SCH ×2 (10:00→21:00)
[2017-05-16] MEDS ORDERED: amLODIPine BESYLATE 10 MG TABLET PO SCH (10:00)
[2017-05-16] MEDS ORDERED: TIMOLOL 0.5% OPHTH SOLUTION 5ML BOTTLE. OU SCH (10:00)
[2017-05-16] MEDS ORDERED: CITALOPRAM 20 MG TABLET. PO SCH (10:00)
[2017-05-16 10:53] VITALS: BP 184/97
--- NOTE | 2017-05-16 11:29 | PDOC ---
PROGRESS NOTES Chief Complaint Chief Complaint SZ? Glaucoma, stroke, hypertension, hyperlipidemia, TIAs, deviated septum, BPH, gout, bilateral cataracts, and detached retina. History of Present Illness History of Present Illness seen and examined dw mattress spring encaser notes reviewed Vitals Vitals Vital Signs Date Time Temp Pulse Resp B/P (MAP) Pulse Ox O2 Delivery O2 Flow Rate FiO2 05/16/17 10:53 97.5 75 18 184/97 (126) 98 Room Air 97.5 Physical Exam General: No acute distress, Other (somolent) Heart: Regular rate, Normal S1 Lungs: Clear Abdomen: Normal bowel sounds, Soft Extremities: No clubbing, No cyanosis Skin: No rashes, No breakdown Review of Systems Review of Systems unreliable Assessment and Plan Assessmemt and Plan Problems Medical Problems: (1) Seizure Status: Acute (2) Syncope Status: Acute Seizure? Glaucoma, stroke, hypertension, hyperlipidemia, TIAs, deviated septum, BPH, gout, bilateral cataracts, and detached retina. Plan MRI PTOT Home emds Awit further neuro input labs dc in am? Problems: Comment Review of Relevant I have reviewed the following items davey (where applicable) has been applied. Labs Laboratory Tests Test 05/14/17 19:45 05/14/17 22:00 05/15/17 11:10 White Blood Count 7.3 x10^3/uL (4.0-11.0) Red Blood Count 4.79 x10^6/uL (4.30-5.70) Hemoglobin 14.3 g/dL (13.0-17.5) Hematocrit 42.6 % (39.0-53.0) Mean Corpuscular Volume 89 fL (79-100) Mean Corpuscular Hemoglobin 30 pg (25-35) Mean Corpuscular Hemoglobin Concent 34 g/dL (31-37) Red Cell Distribution Width 14.8 % (11.5-14.5) Platelet Count 157 x10^3/uL (140-400) Neutrophils (%) (Auto) 68 % (31-73) Lymphocytes (%) (Auto) 18 % (24-48) Monocytes (%) (Auto) 12 % (0-9) Eosinophils (%) (Auto) 3 % (0-3) Basophils (%) (Auto) 0 % (0-3) Neutrophils # (Auto) 4.9 x10^3uL (1.8-7.7) Lymphocytes # (Auto) 1.3 x10^3/uL (1.0-4.8) Monocytes # (Auto) 0.8 x10^3/uL (0.0-1.1) Eosinophils # (Auto) 0.2 x10^3/uL (0.0-0.7) Basophils # (Auto) 0.0 x10^3/uL (0.0-0.2) Sodium Level 140 mmol/L (136-145) Potassium Level 4.4 mmol/L (3.5-5.1) Chloride Level 105 mmol/L (98-107) Carbon Dioxide Level 30 mmol/L (21-32) Anion Gap 5 (6-14) Blood Urea Nitrogen 24 mg/dL (8-26) Creatinine 1.1 mg/dL (0.7-1.3) Estimated GFR (Cockcroft-Gault) 78.1 BUN/Creatinine Ratio 22 (6-20) Glucose Level 129 mg/dL (70-99) Calcium Level 9.2 mg/dL (8.5-10.1) Magnesium Level 1.9 mg/dL (1.8-2.4) Total Bilirubin 0.3 mg/dL (0.2-1.0) Aspartate Amino Transf (AST/SGOT) 15 U/L (15-37) Alanine Aminotransferase (ALT/SGPT) 22 U/L (16-63) Alkaline Phosphatase 95 U/L (46-116) Creatine Kinase 32 U/L (39-308) Creatine Kinase MB (Mass) 0.5 ng/mL (0.0-3.6) Creatine Kinase MB Relative Index 1.6 % (0-4) Troponin I Quantitative < 0.017 ng/mL (0.000-0.055) Total Protein 7.4 g/dL (6.4-8.2) Albumin 3.6 g/dL (3.4-5.0) Albumin/Globulin Ratio 0.9 (1.0-1.7) Urine Collection Type U cath Urine Color Yellow Urine Clarity Clear Urine pH 7.0 Urine Specific [place] 1.020 Urine Protein 100 mg/dL (NEG-TRACE) Urine Glucose (UA) Negative mg/dL (NEG) Urine Ketones (Stick) Negative mg/dL (NEG) Urine Blood Negative (NEG) Urine Nitrite Negative (NEG) Urine Bilirubin Negative (NEG) Urine Urobilinogen Dipstick 0.2 mg/dL (0.2 mg/dL) Urine Leukocyte Esterase Small (NEG) Urine RBC 11-20 /HPF (0-2) Urine WBC 1-4 /HPF (0-4) Urine Bacteria 0 /HPF (0-FEW) Urine Hyaline Casts Occasional /HPF Urine Mucus Mod /LPF Vitamin B12 Level 1164 pg/mL (247-911) Thyroid Stimulating Hormone (TSH) 0.264 uIU/mL (0.358-3.74) Free Thyroxine 1.02 ng/dL (0.76-1.46) Free Triiodothyronine (T3) pg/mL 2.67 pg/mL (2.18-3.98) Microbiology 05/14/17 Urine Culture - Preliminary, Resulted 05/14/17 Urine Culture Result 1 (RYLEY) - Preliminary, Resulted Medications Current Medications Ondansetron HCl (Zofran) 4 mg PRN Q8HRS PRN IV NAUSEA/VOMITING; Start 05/15/17 at 00:00; Stop 05/15/17 at 23:59; Status DC Haloperidol Lactate (Haldol) 5 mg 1X ONCE IVP Last administered on 05/15/17 01:03; Start 05/15/17 at 01:15; Stop 05/15/17 at 01:16; Status DC Gadobutrol (Gadavist) 7 mmol 1X ONCE IV Last administered on 05/15/17 16:33; Start 05/15/17 at 16:15; Stop 05/15/17 at 16:16; Status DC Ceftriaxone Sodium 1 gm/ Sodium Chloride 50 ml @ 100 mls/hr Q24H IV Last administered on 05/15/17 18:36; Start 05/15/17 at 18:00 Allopurinol (Zyloprim) 300 mg DAILY PO Last administered on 05/16/17 10:00; Start 05/16/17 at 10:00 Amlodipine Besylate (Norvasc) 10 mg DAILY PO Last administered on 05/16/17 10: 00; Start 05/16/17 at 10:00 Donepezil HCl (Aricept) 10 mg HS PO ; Start 05/16/17 at 21:00 Latanoprost (Xalatan) 1 drop HS OU ; Start 05/16/17 at 21:00 Lubiprostone (Amitiza) 8 mcg PRN BID PRN PO CONSTIPATION Last administered on 10:00; Start 05/16/17 at 09:45 Memantine (Namenda) 10 mg BID PO Last administered on 05/16/17 10:00; Start at 10:00 Potassium Chloride (Klor-Con) 20 meq BIDWMEALS PO Last administered on 10:00; Start 05/16/17 at 10:00 Brimonidine Tartrate (Alphagan) 1 drop BID OU ; Start 05/16/17 at 10:00; Status Cancel Artificial Tears (Artificial Tears) 1 drop BID OU Last administered on 10:00; Start 05/16/17 at 10:00 Citalopram Hydrobromide (CeleXA) 40 mg DAILY PO Last administered on 05/16/17 10:00; Start 05/16/17 at 10:00 Non-Formulary Medication 3 mg HS PO ; Start 05/16/17 at 21:00; Stop 05/16/17 at 21:00; Status DC Timolol Maleate (Timoptic 0.5% Ophth) 1 drop BID OU Last administered on 10:00; Start 05/16/17 at 10:00 Brimonidine Tartrate (Alphagan) 1 drop BID OU ; Start 05/16/17 at 21:00 Active Scripts Active Reported Melatonin 3 Mg Tablet 3 Mg PO HS Amitiza (Lubiprostone) 8 Mcg Capsule 8 Mcg PO BID PRN Refresh Optive Eye Drops (Carboxymethylcellulos/Glycerin) 15 Ml Drops 15 Ml OP BID Combigan Eye Drops (Brimonidine Tartrate/Timolol) 5 Ml Drops 5 Ml OU BID Citalopram Hbr (Citalopram Hydrobromide) 40 Mg Tablet 40 Mg PO DAILY Amlodipine Besylate 10 Mg Tablet 10 Mg PO DAILY Potassium Chloride 20 Meq Tab.er.prt 20 Meq PO BID Latanoprost 2.5 Ml Drops 1 Drop LEFTEYE HS Namenda (Memantine Hcl) 10 Mg Tablet 10 Mg PO BID Donepezil Hcl 10 Mg Tablet 10 Mg PO HS Allopurinol 300 Mg Tablet 300 Mg PO DAILY Vitals/I & O Vital Sign - Last 24 Hours 05/15/17 05/15/17 05/15/17 05/15/17 14:55 19:46 20:00 23:19 Temp 98.0 99.1 98.2 98.0 99.1 98.2 Pulse 74 72 70 Resp 18 18 16 B/P (MAP) 145/78 (100) 153/88 (109) 163/89 (113) Pulse Ox 96 96 95 O2 Delivery Room Air Room Air Room Air Room Air 05/16/17 05/16/17 05/16/17 05/16/17 03:19 07:40 08:00 10:00 Temp 97.7 97.6 97.7 97.6 Pulse 72 88 88 Resp 16 17 B/P (MAP) 173/95 (121) 167/101 (123) 167/101 Pulse Ox 96 96 O2 Delivery Room Air Room Air Room Air 05/16/17 10:53 Temp 97.5 97.5 Pulse 75 Resp 18 B/P (MAP) 184/97 (126) Pulse Ox 98 O2 Delivery Room Air Intake and Output 05/15/17 05/15/17 05/16/17 15:00 23:00 07:00 Intake Total 180 ml 560 ml Balance 180 ml 560 ml JIM WEINER III DO May 16, 2017 11:29
--- NOTE | 2017-05-16 17:24 | PDOC ---
PROGRESS NOTES Assessment Assessment Seizure or seizure like episode, new onset on 05/14/17. Syncope likely. Fall HTN CVA, TIA in past. Dementia, AD Blepharospasm, chronic Gout. Abnormal TSH level RECOMMENDATIONS/PLAN: Treat medical diseases. OT/PT Discussed with his at bedside on 05/15/17. HCT: No acute findings. Temporal lobe atrophy. Brain MRI w/wo contrast plus seizure protocol: No specific findings except brain atrophy. EEG: No seizure activity. HISTORY OF THE PRESENT ILLNESS: 81-y-old male patient with above medical diseases had a seizure on per his . His described that the patient was sitting eating his dinner, he suddenly lost consciousness with shaking movements in his UE then fell back on floor from his chair. He was confused after this event. No Hx of seizure in the past. No seizure since in the hospital. PAST MEDICAL HISTORY: Please see above. PAST SURGERY HISTORY: Cataracts surgery. Retina surgery for retina detachment. ALLERGY: Unknown MEDICATIONS: Refer to [facility] HISTORY: Non contributory. SOCIAL HISTORY: Denies current smoking, drinking, and illicit drug use. REVIEW OF SYSTEMS: Constitutional: No malnutrition, weight loss, cachexia. Head: No traumatic brain or head injury. Skin: No edema, or rash. Ear: No infection. Eyes: Blepharospasm Nose: No bleeding or purulent discharges. Hearing: Hearing decrease. Neck: No recent injury. Cardiac: HTN. Pulmonary: No COPD. GI: No GI ulcer, GI bleeding. Urinary/genital: Hematuria. Endocrinologic: No cousin face, craniofacial dysmorphism, polydactyly. Skeletomuscular: No muscular atrophy, deformity. Neurological: see HP. Psychiatric: Denies drug use/abuse. Otherwise, not [id number] review of systems. PHYSICAL EXAMINATION: General appearance is in chronic acute distress. HEENT: Normocephalic and nontraumatic. Eyes, nose, ears, and throat are unremarkable. Neck is supple. No lymphadenopathy. No crepitus. Cardiovascular: S1, S2, regular rate and rhythm. Pulmonary: Clear to auscultation bilaterally. Abdomen: Bowel sounds are positive. Extremities: No rash, lesions, or edema. No restriction of range of motion NEUROLOGICAL EXAMINATION: Awake. Not able to follow commands well. Not oriented to time, place but knows person. PERRL. EOMI. CN: no focal findings. Muscle tone: fluctuated. Muscle strength: 4+ DTR: 2- Plantar reflex: Neutral response bilaterally Gait: not examined in bed. Sensory exam: no acute abnormal findings. No acute cerebellar signs elicited. F-T-N test not performed due to unable to follow commands. Objective Objective Vital Signs Date Time Temp Pulse Resp B/P (MAP) Pulse Ox O2 Delivery O2 Flow Rate FiO2 05/16/17 10:53 97.5 75 18 184/97 (126) 98 Room Air 97.5 Intake and Output 05/16/17 07:00 Intake Total 740 ml Balance 740 ml Intake Oral 740 ml # Voids 15 Vitals Signs Vitals VS - Last 72 Hours, by Label Date Time Temp Pulse Resp B/P (MAP) Pulse Ox O2 Delivery O2 Flow Rate FiO2 05/16/17 10:53 97.5 75 18 184/97 (126) 98 Room Air 97.5 05/16/17 10:00 88 167/101 05/16/17 08:00 Room Air 05/16/17 07:40 97.6 88 17 167/101 (123) 96 Room Air 97.6 05/16/17 03:19 97.7 72 16 173/95 (121) 96 Room Air 97.7 05/15/17 23:19 98.2 70 16 163/89 (113) 95 Room Air 98.2 05/15/17 20:00 Room Air 05/15/17 19:46 99.1 72 18 153/88 (109) 96 Room Air 99.1 05/15/17 14:55 98.0 74 18 145/78 (100) 96 Room Air 98.0 05/15/17 10:52 98.1 77 16 179/95 (123) 96 Room Air 98.1 05/15/17 07:25 97.8 74 16 145/85 (105) 95 Room Air 97.8 Laboratory Laboratory Microbiology 05/14/17 Urine Culture - Final, Complete 05/14/17 Urine Culture Result 1 (RYLEY) - Final, Complete Medication Medications Current Medications Allopurinol (Zyloprim) 300 mg DAILY PO Last administered on 05/16/17t 10:00; Start 05/16/17 at 10:00; Stop 05/16/17 at 15:30; Status DC Amlodipine Besylate (Norvasc) 10 mg DAILY PO Last administered on 05/16/17 10: 00; Start 05/16/17 at 10:00; Stop 05/16/17 at 15:30; Status DC Artificial Tears (Artificial Tears) 1 drop BID OU Last administered on 10:00; Start 05/16/17 at 10:00; Stop 05/16/17 at 15:30; Status DC Brimonidine Tartrate (Alphagan) 1 drop BID OU ; Start 05/16/17 at 10:00; Status Cancel Brimonidine Tartrate (Alphagan) 1 drop BID OU ; Start 05/16/17 at 21:00; Stop at 21:00; Status DC Cefpodoxime Proxetil (Vantin) 200 mg BID PO ; Start 05/17/17 at 09:00; Stop at 09:00; Status DC Ceftriaxone Sodium 1 gm/ Sodium Chloride 50 ml @ 100 mls/hr Q24H IV Last administered on 05/15/17 18:36; Start 05/15/17 at 18:00; Stop 05/16/17 at 15:30 ; Status DC Citalopram Hydrobromide (CeleXA) 40 mg DAILY PO Last administered on 05/16/17 10:00; Start 05/16/17 at 10:00; Stop 05/16/17 at 15:30; Status DC Donepezil HCl (Aricept) 10 mg HS PO ; Start 05/16/17 at 21:00; Stop 05/16/17 at 21:00; Status DC Latanoprost (Xalatan) 1 drop HS OU ; Start 05/16/17 at 21:00; Stop 05/16/17 at 21:00; Status DC Lubiprostone (Amitiza) 8 mcg PRN BID PRN PO CONSTIPATION Last administered on 10:00; Start 05/16/17 at 09:45; Stop 05/16/17 at 15:30; Status DC Memantine (Namenda) 10 mg BID PO Last administered on 05/16/17 10:00; Start at 10:00; Stop 05/16/17 at 15:30; Status DC Non-Formulary Medication 3 mg HS PO ; Start 05/16/17 at 21:00; Stop 05/16/17 at 21:00; Status DC Potassium Chloride (Klor-Con) 20 meq BIDWMEALS PO Last administered on 10:00; Start 05/16/17 at 10:00; Stop 05/16/17 at 15:30; Status DC Timolol Maleate (Timoptic 0.5% Ophth) 1 drop BID OU Last administered on 10:00; Start 05/16/17 at 10:00; Stop 05/16/17 at 15:30; Status DC Comment Review of Relevant I have reviewed the following items davey (where applicable) has been applied. CALLIE GALLEGOS MD May 16, 2017 17:24
[2017-05-16] MEDS ORDERED: DONEPEZIL HCL 10 MG TABLET. PO SCH (21:00)
[2017-05-16] MEDS ORDERED: NON FORMULARY ITEM (Melatonin 3 MG) PO SCH (21:00)
[2017-05-16] MEDS ORDERED: LATANOPROST 0.005% OPHTH SOLUTION 2.5ML BOTTLE. OU SCH (21:00)
--- NOTE | 2017-05-16 22:17 | DS ---
DATE OF DISCHARGE: 05/16/2017 ADMISSION DIAGNOSES: Possible seizure and syncope. DISCHARGE DIAGNOSIS: Atypical seizure activity ____ seizures. HOSPITAL COURSE: The patient is a pleasant elderly male who had a near syncopal episode, some shaking and possible seizure. He was admitted. We did MRIs. We consulted Neurology. We did physical therapy, occupational therapy, resume his home meds. Basically, he is doing well. We plan to discharge. DISPOSITION: Home. ACTIVITY: As tolerated. DIET: Low sodium. MEDICATIONS: Please see the MRAD. JIM WEINER DO DR: LUIS/brennan JOB#: [id number] / [id number]
[2017-05-17] MEDS ORDERED: CEFPODOXIME PROXETIL 100 MG TABLET. PO SCH (09:00)
== END 2017-05-16 15:30 | disposition home or self-care (01) ==
LOC: ER 19:33 → 6 SOUTH 23:00
PROVIDERS: ADMIT Internal Medicine Hematology & Oncology; ATTEND Internal Medicine Hematology & Oncology
DX: R55 Syncope and collapse (principal); H40.9 Unspecified glaucoma; I10 Essential (primary) hypertension; E78.5 Hyperlipidemia, unspecified; J34.2 Deviated nasal septum; N40.0 Benign prostatic hyperplasia without lower urinary tract symptoms; H26.9 Unspecified cataract; M1A.9XX0 Chronic gout, unspecified, without tophus (tophi); F02.80 Dementia in other diseases classified elsewhere, unspecified severity, without behavioral disturbance, psychotic disturbance, mood disturbance, and anxiety; G30.9 Alzheimer's disease, unspecified; G24.5 Blepharospasm; G31.9 Degenerative disease of nervous system, unspecified; Z86.73 Personal history of transient ischemic attack (TIA), and cerebral infarction without residual deficits; Z82.49 Family history of ischemic heart disease and other diseases of the circulatory system
CPT/HCPCS: 36415; 70450; 70553; 71010; 80053; 81001; 82553; 82607; 83735; 84439; 84443; 84481; 84484; 85027; 87086; 93005; 95816; 96365; 96375; 99285; G0378; J0696; J1630; G0379; A9585

== ENCOUNTER → 2017-07-17 | Outpatient (CLI) | payer BC ==
[~2017-07-17] MED LIST changes: +AMLO10TA2 PO; +BRIM5DRO2 OU; +CARB15DR3 OP; +CITA40TA5 PO; +LUBI8CAP4 PO; +MELA3TAB2 PO
--- NOTE | 2017-07-17 16:29 | CARD ---
APPROVED REPORT EXAM: Two-dimensional and M-mode echocardiogram with Doppler and color Doppler. Other Information Quality : Technically Limited Rhythm : NSRTechnically limited study due to positioning. INDICATION Pre-syncope 2D DIMENSIONS Left Atrium(2D)2.8 (1.6-4.0cm)IVSd1.0 (0.7-1.1cm) Aortic Root(2D)2.9 (2.0-3.7cm)LVDd5.0 (3.9-5.9cm) LVOT Diameter2.0 (1.8-2.4cm)PWd1.0 (0.7-1.1cm) LVDs3.6 (2.5-4.0cm)SV64.4 ml LVEF(%)43.2 (>50%) Aortic Valve AoV Peak Chema.96.8cm/sAoV VTI16.4cm AO Peak GR.3.7mmHgLVOT Peak Chema.87.4cm/s LVOT VTI 17.59cmAO Mean GR.2mmHg WAYNE (VMAX)2.67so1SOR (VTI)3.32cm2 AI P 1/2 Iffv915jo Mitral Valve MV E Dcfgumsb30.0cm/sMV DECEL [id number] MV A Iopfpeva44.8cm/sMV E Mean Gr.1mmHg MV RYG43ajP/A Ratio0.7 MV A Tvukidhv086tsSSO (PHT)2.58cm2 TDI E/Lateral E'3.0E/Medial E'5.5 Tricuspid Valve TR P. Rhvywkvz319hz/sRAP IGYNEVRN2qdJp TR Peak Gr.87knUxWCRQ18hnBi Pulmonary Vein S1 Vnirgxor77.1cm/sD2 Wuzczjxq44.2cm/s LEFT VENTRICLE The left ventricle is normal size. There is normal left ventricular wall thickness. Left ventricle sy stolic function is mildly reduced. The Ejection Fraction is 40-45%. There is global hypokinesis of th e left ventricle. Tissue Doppler imaging reveals mild left ventricular diastolic dysfunction. There i s no ventricular septal defect visualized. RIGHT VENTRICLE The right ventricle is normal size. The right ventricular systolic function is normal. ATRIA The left atrium size is normal. The right atrium size is normal. The interatrial septum is intact wit h no evidence for an atrial septal defect or patent foramen ovale as noted on 2-D or Doppler imaging. AORTIC VALVE The aortic valve is not well visualized. Doppler and Color Flow revealed mild aortic regurgitation. T here is no significant aortic valvular stenosis. MITRAL VALVE The mitral valve is normal in structure and function. There is no mitral valve stenosis. Doppler and Color Flow revealed trace mitral regurgitation. TRICUSPID VALVE Doppler and Color Flow revealed trace tricuspid regurgitation. The PA pressure was estimated at 26 mm Hg. There is no tricuspid valve stenosis. PULMONIC VALVE The pulmonic valve was no visualized due to off axis images. GREAT VESSELS The aortic root is normal in size. The IVC was not visualized. PERICARDIAL EFFUSION There is no evidence of significant pericardial effusion. Critical Notification Critical Value: No <Conclusion> Left ventricle systolic function is mildly reduced. The Ejection Fraction is 40-45%. There is global hypokinesis of the left ventricle. Doppler and Color Flow revealed mild aortic regurgitation. Technically difficult study.
== END | disposition home or self-care (01) ==
LOC: ECHO 10:58
PROVIDERS: ATTEND Internal Medicine Cardiovascular Disease
DX: I08.2 Rheumatic disorders of both aortic and tricuspid valves (principal); R55 Syncope and collapse
CPT/HCPCS: 93306

== ENCOUNTER 2017-09-20 13:44 | Inpatient (IN) | payer BC ==
[~2017-09-20] VITALS: Ht 167.6 cm; Wt 71.8 kg
[2017-09-20] MEDS: IV NORMAL SALINE 1000ML BAG 1,000 ML IV SCH ×4 (14:34→21:13)
[2017-09-20 14:40] LABS: BILIRUBIN,URINE NEGATIVE (NEG); GLUCOSE,URINE NEGATIVE (NEG); NITRITE,URINE NEGATIVE (NEG); PROTEIN,URINE >=300 mg/dL (NEG-TRACE)
[2017-09-20 14:42] LABS: BASO % 0 % (0-3); EOS % 0 % (0-3); HEMATOCRIT 46.7 % (39.0-53.0); HEMOGLOBIN 15.8 g/dL (13.0-17.5); LYMPH # 0.9 x10^3/uL (1.0-4.8); LYMPH % 4 % (24-48); MEAN CORPUSCULAR HEMOGLOBIN 30 pg (25-35); MEAN CORPUSCULAR HGB CONC 34 g/dL (31-37); MEAN CORPUSCULAR VOLUME 89 fL (79-100); MONO % 8 % (0-9); NEUT % 87 % (31-73); PLATELET COUNT 238 x10^3/uL (140-400); RED BLOOD COUNT 5.22 x10^6/uL (4.30-5.70); RED CELL DISTRIBUTION WIDTH 14.6 % (11.5-14.5); WHITE BLOOD COUNT 20.2 x10^3/uL (4.0-11.0)
[2017-09-20 14:45] LABS: BACTERIA,URINE 0 /HPF (0-FEW); RBC,URINE 0 /HPF (0-2); WBC,URINE 0 /HPF (0-4)
[2017-09-20 14:51] LABS: CALCIUM 9.3 mg/dL (8.5-10.1); GFR 87.2; POTASSIUM 3.8 mmol/L (3.5-5.1)
--- NOTE | 2017-09-20 14:56 | EKG ---
[facility] [address] [place] [address] Test Date: 2017-09-20 Test Time: 14:25:06 Pat Name: SATHIHS PABLO Department: Room: Gender: M Ribbon Hand: : 1935 Requested By: LUDA WALL Order Number: [id number] Reading MD: Maya Beasley Measurements Intervals [place] Rate: 119 P: 34 HI: 190 QRS: -47 QRSD: 100 T: 56 QT: 300 QTc: 423 Interpretive Statements SINUS TACHYCARDIA VENTRICULAR PREMATURE COMPLEX(ES) ABNORMAL LEFT AXIS DEVIATION LEFT ANTERIOR FASCICULAR BLOCK CONSIDER LEFT VENTRICULAR HYPERTROPHY ABNORMAL ECG Electronically Signed On 09-22-2017 16:29:44 CDT by Maya Beasley
[2017-09-20 14:57] LABS: ALBUMIN 3.7 g/dL (3.4-5.0); ALBUMIN/GLOBULIN RATIO 0.9 (1.0-1.7); TOTAL BILIRUBIN 1.1 mg/dL (0.2-1.0); TOTAL PROTEIN 7.7 g/dL (6.4-8.2)
--- NOTE | 2017-09-20 15:03 | PHYS DOC ---
Past Medical History Past Medical History: CVA, Dementia, Glaucoma, Hypertension, Stroke, TIA, Other Additional Past Medical Histor: Deviated nasal septum, BPH, gout, blepharospasm Past Surgical History: Other Additional Past Surgical Histo: Bilat.Cataract & Detached retina surgeries. double hernia Alcohol Use: None Drug Use: None Adult General Chief Complaint Chief Complaint: NAUSEA/VOMITING/DIARRHA HPI HPI Patient is a 81 year old male who presents with fever and altered mental status. The patient has history of dementia and CVA and is currently unable to provide any history at this time. Patient was brought to the emergency department by his and daughter. They state that the patient started having significant weakness yesterday. Patient has also been having choking spells while attempting to eat and has been having vomiting at home. Due to profound weakness they brought the patient to the emergency department today for evaluation. They state normally the patient is able to self ambulate. Daughter states that the patient does not communicate well that she states that she had asked the patient if he was having trouble urinating and she thinks that he admitted that he was having pain with urination. The patient does not communicate at all at this time and is unable to express any complaints. The patient has been shaking over the past 24 hours which is not usual for him. Review of Systems Review of Systems Unable to obtain, patient nonverbal and unable to provide history Current Medications Current Medications Current Medications Medications (Trade) Dose Ordered Sig/Starr Start Time Stop Time Status Last Admin Dose Admin Sodium Chloride 1,000 ml @ 500 mls/hr Q2H 09/20/17 14:26 09/20/17 18:55 09/20/17 14:34 500 MLS/HR Allergies Allergies Allergies Coded Allergies Type Severity Reaction Last Updated Verified lisinopril Allergy Severe SWELLING OF FACE AND LIPS 10/31/15 Yes Physical Exam Physical Exam Constitutional: Alert, nonverbal, febrile, rigors. [] HENT: Normocephalic, atraumatic, bilateral external ears normal, oropharynx dry , no oral exudates, nose normal. [] Eyes: PERRLA, EOMI, conjunctiva normal, no discharge. [] Neck: Normal range of motion, no tenderness, supple, no stridor. [] Cardiovascular: Tachycardia, regular rhythm, no murmur [] Lungs & Thorax: Rales in the right lung base, none restrictive airway pattern[] Abdomen: Bowel sounds normal, soft, no tenderness, no masses, no pulsatile masses. [] Skin: Warm, dry, no erythema, no rash. [] Back: No tenderness, no CVA tenderness. [] Extremities: No tenderness, no cyanosis, no clubbing, ROM intact, trace pedal edema. [] Neurologic: Alert, nonverbal, withdraws to pain. [] Current Patient Data Vital Signs Vital Signs Date Time Temp Pulse Resp B/P (MAP) Pulse Ox O2 Delivery O2 Flow Rate FiO2 09/20/17 13:54 100.4 124 20 145/87 (106) 95 Room Air 100.4 Lab Values Laboratory Tests Test 09/20/17 13:55 09/20/17 14:30 White Blood Count 20.2 x10^3/uL (4.0-11.0) H Red Blood Count 5.22 x10^6/uL (4.30-5.70) Hemoglobin 15.8 g/dL (13.0-17.5) Hematocrit 46.7 % (39.0-53.0) Mean Corpuscular Volume 89 fL (79-100) Mean Corpuscular Hemoglobin 30 pg (25-35) Mean Corpuscular Hemoglobin Concent 34 g/dL (31-37) Red Cell Distribution Width 14.6 % (11.5-14.5) H Platelet Count 238 x10^3/uL (140-400) Neutrophils (%) (Auto) 87 % (31-73) H Lymphocytes (%) (Auto) 4 % (24-48) L Monocytes (%) (Auto) 8 % (0-9) Eosinophils (%) (Auto) 0 % (0-3) Basophils (%) (Auto) 0 % (0-3) Neutrophils # (Auto) 17.6 x10^3uL (1.8-7.7) H Lymphocytes # (Auto) 0.9 x10^3/uL (1.0-4.8) L Monocytes # (Auto) 1.6 x10^3/uL (0.0-1.1) H Eosinophils # (Auto) 0.1 x10^3/uL (0.0-0.7) Basophils # (Auto) 0.0 x10^3/uL (0.0-0.2) Platelet Estimate Pending Sodium Level 136 mmol/L (136-145) Potassium Level 3.8 mmol/L (3.5-5.1) Chloride Level 97 mmol/L (98-107) L Carbon Dioxide Level 30 mmol/L (21-32) Anion Gap 9 (6-14) Blood Urea Nitrogen 17 mg/dL (8-26) Creatinine 1.0 mg/dL (0.7-1.3) Estimated GFR (Cockcroft-Gault) 87.2 BUN/Creatinine Ratio 17 (6-20) Glucose Level 211 mg/dL (70-99) H Lactic Acid Level 2.9 mmol/L (0.4-2.0) H Calcium Level 9.3 mg/dL (8.5-10.1) Total Bilirubin 1.1 mg/dL (0.2-1.0) H Aspartate Amino Transferase (AST) 25 U/L (15-37) Alanine Aminotransferase (ALT) 25 U/L (16-63) Alkaline Phosphatase 93 U/L (46-116) Total Protein 7.7 g/dL (6.4-8.2) Albumin 3.7 g/dL (3.4-5.0) Albumin/Globulin Ratio 0.9 (1.0-1.7) L Urine Collection Type U cath Urine Color Donna Urine Clarity Clear Urine pH 6.0 Urine Specific [place] 1.025 Urine Protein >=300 mg/dL (NEG-TRACE) Urine Glucose (UA) Negative mg/dL (NEG) Urine Ketones (Stick) Negative mg/dL (NEG) Urine Blood Negative (NEG) Urine Nitrite Negative (NEG) Urine Bilirubin Negative (NEG) Urine Urobilinogen Dipstick 1.0 mg/dL (0.2 mg/dL) Urine Leukocyte Esterase Negative (NEG) Urine RBC 0 /HPF (0-2) Urine WBC 0 /HPF (0-4) Urine Amorphous Sediment Present /HPF Urine Bacteria 0 /HPF (0-FEW) Laboratory Tests 09/20/17 13:55 Laboratory Tests 09/20/17 13:55 EKG EKG Interpreted by me: Heart rate 119, sinus tachycardia, normal intervals, left axis deviation, no acute ST/T-wave abnormalities present[] Radiology/Procedures Radiology/Procedures [facility] [address] [place] [address] IMAGING REPORT Signed PATIENT: SATHISH PABLO ACCOUNT: [id number] : 1935 LOCATION: ER AGE: 81 SEX: M EXAM STATUS: REG ER ORD. PHYSICIAN: LUDA WALL MD REASON: fever ED16 PROCEDURE: PORTABLE CHEST 1V Portable chest, 09/20/2017: History: Fever Comparison is made to a study from 05/14/2017. The heart size and pulmonary vascularity are normal. There is poor definition of the left hemidiaphragm suggesting mild atelectasis/infiltrate. The portable technique may be contributing to this appearance. There are bowel loops extending beneath the right hemidiaphragm. No definite right lung infiltrate is seen. There is no evidence of pleural fluid. IMPRESSION: Possible mild left basilar atelectasis/infiltrate. DICTATED and SIGNED BY: GRETA DE LA TORRE MD DATE: 09/20/17 1512 CC: LUDA WALL MD; GERALD MANCERA MD ~ [] Course & Med Decision Making Course & Med Decision Making Pertinent Labs and Imaging studies reviewed. (See chart for details) The patient was started on a 30 mL per kilo bolus per severe sepsis protocol. Patient found have a left lower lobe infiltrate. Findings are concerning for aspiration pneumonia given patient's history of choking spells. The patient was started on IV Zosyn for treatment. The patient was evaluated by Dr. Knight, the patient's ophthalmic surgical assistant, and he will remain on as consult while patient is in hospital. I spoke with Dr. Emery who accepted care patient in hospital. Critical care time excluding procedures: 35 minutes Dragon Disclaimer Dragon Disclaimer This electronic medical record was generated, in whole or in part, using a voice recognition dictation system. Departure Departure Impression: Primary Impression: Severe sepsis Additional Impressions: Aspiration pneumonia Acute metabolic encephalopathy Hyperglycemia Disposition: ADMITTED INPATIENT Admitting Physician: Aurelia Emery Condition: GUARDED Referrals: GERALD MANCERA MD (PCP) Problem Qualifiers Additional Impressions: Aspiration pneumonia Aspiration pneumonia type: unspecified Laterality: left Lung location: lower lobe of lung Qualified Codes: J69.0 - Pneumonitis due to inhalation of food and vomit LUDA WALL MD Sep 20, 2017 15:03
--- NOTE | 2017-09-20 15:18 | RAD ---
Portable chest, 09/20/2017: History: Fever Comparison is made to a study from 05/14/2017. The heart size and pulmonary vascularity are normal. There is poor definition of the left hemidiaphragm suggesting mild atelectasis/infiltrate. The portable technique may be contributing to this appearance. There are bowel loops extending beneath the right hemidiaphragm. No definite right lung infiltrate is seen. There is no evidence of pleural fluid. IMPRESSION: Possible mild left basilar atelectasis/infiltrate.
[2017-09-20] MEDS ORDERED: ONDANSETRON PF 4 MG/2 ML VIAL. IV PRN (15:45)
[2017-09-20] MEDS ORDERED: ACETAMINOPHEN 325 MG TABLET. PO PRN (15:45)
[2017-09-20] MEDS ORDERED: PIP/TAZO PER PHARMACY MC PRN (15:45)
[2017-09-20] MEDS ORDERED: ACETAMINOPHEN 120 MG SUPP.RECT. PR PRN (15:45)
[2017-09-20] MEDS ORDERED: ACETAMINOPHEN 500 MG TABLET PO PRN (15:45)
--- NOTE | 2017-09-20 15:54 | PDOC1 ---
History and Physical Date of Admission Date of Admission DATE: 09/20/17 TIME: 15:47 Identification/Chief Complaint Chief Complaint coughing spells, low grade temp Problems: Source Source: Caregiver, Chart review History of Present Illness History of Present Illness 81 y.o male with significant dementia on aricept, lives at home with , he ambulates without assistive device, on reg diet at home but advanced dementia interms of confusion per family, seems to have had choking/aspiration spells at home, coughed up food, vomited AM meds, low grade temp at home, here at ER 100.3, WBC 20, Right sided infiltrates on CXR I have personally reviewed, sinus tachy 120-130s, SBP 120s, shakes, chronic, prev multiple admits for SZ like activity, elyte abN, FTT sxs/ Will be getting IVF per sepsis protcol, zosyn per pharmacy I reviewed home meds, norvasc 10, eye drops, aricept and other supportive meds, . I did review Code status with family, DNR/DNI PCP Puls, Pt demented, does not answer to me Past Medical History Cardiovascular: HTN Pulmonary: Bronchitis CENTRAL NERVOUS SYSTEM: Dementia GI: GERD Musculoskeletal: Osteoarthritis Past Surgical History Past Surgical History: No pertinent history Family History Family History: Family History Unknown Social History Smoke: No ALCOHOL: none Drugs: None Current Problem List Problem List Problems Medical Problems: (1) Acute metabolic encephalopathy Status: Acute (2) Hyperglycemia Status: Acute Problems: Current Medications Current Medications Current Medications Sodium Chloride 1,000 ml @ 500 mls/hr Q2H IV Last administered on 09/20/17t 15:42; Start 09/20/17 at 14:26; Stop 09/20/17 at 18:55 Piperacillin Sod/ Tazobactam Sod (Zosyn Per Pharmacy) 1 each PRN DAILY PRN MC SEE COMMENTS; Start 09/20/17 at 15:45; Status UNV Active Scripts Active Reported Melatonin 3 Mg Tablet 3 Mg PO HS Amitiza (Lubiprostone) 8 Mcg Capsule 8 Mcg PO BID PRN Refresh Optive Eye Drops (Carboxymethylcellulos/Glycerin) 15 Ml Drops 15 Ml OP BID Combigan Eye Drops (Brimonidine Tartrate/Timolol) 5 Ml Drops 5 Ml OU BID Amlodipine Besylate 10 Mg Tablet 10 Mg PO DAILY Potassium Chloride 20 Meq Tab.er.prt 20 Meq PO BID Latanoprost 2.5 Ml Drops 1 Drop LEFTEYE HS Namenda (Memantine Hcl) 10 Mg Tablet 10 Mg PO BID Donepezil Hcl 10 Mg Tablet 10 Mg PO HS Allopurinol 300 Mg Tablet 300 Mg PO DAILY Allergies Allergies: Coded Allergies: lisinopril (Verified Allergy, Severe, SWELLING OF FACE AND LIPS, 10/31/15) ROS Review of System limited, dementia Physical Exam General: No acute distress HEENT: Atraumatic, PERRLA Lungs: Normal air movement, Other (no wheezes but corase jermaine on RT) Heart: S1S2, no thrills, no rubs, no gallops, no murmurs, murmurs, other ( sinus tachy) Abdomen: Normal bowel sounds, Soft, No tenderness, No hepatosplenomegaly, No masses Male Genitals Exam: normal genitalia Rectal Exam: not examined PELVIC: Nml ext genitalia Extremities: No clubbing, No cyanosis, No edema, Normal pulses, No tenderness/ swelling Skin: No rashes, No breakdown, No significant lesion Vitals Vitals Vital Signs Date Time Temp Pulse Resp B/P (MAP) Pulse Ox O2 Delivery O2 Flow Rate FiO2 09/20/17 15:45 113 20 168/93 (118) 92 Room Air 09/20/17 13:54 100.4 100.4 Labs Labs Laboratory Tests Test 09/20/17 13:55 09/20/17 14:30 White Blood Count 20.2 x10^3/uL (4.0-11.0) Red Blood Count 5.22 x10^6/uL (4.30-5.70) Hemoglobin 15.8 g/dL (13.0-17.5) Hematocrit 46.7 % (39.0-53.0) Mean Corpuscular Volume 89 fL (79-100) Mean Corpuscular Hemoglobin 30 pg (25-35) Mean Corpuscular Hemoglobin Concent 34 g/dL (31-37) Red Cell Distribution Width 14.6 % (11.5-14.5) Platelet Count 238 x10^3/uL (140-400) Neutrophils (%) (Auto) 87 % (31-73) Lymphocytes (%) (Auto) 4 % (24-48) Monocytes (%) (Auto) 8 % (0-9) Eosinophils (%) (Auto) 0 % (0-3) Basophils (%) (Auto) 0 % (0-3) Neutrophils # (Auto) 17.6 x10^3uL (1.8-7.7) Lymphocytes # (Auto) 0.9 x10^3/uL (1.0-4.8) Monocytes # (Auto) 1.6 x10^3/uL (0.0-1.1) Eosinophils # (Auto) 0.1 x10^3/uL (0.0-0.7) Basophils # (Auto) 0.0 x10^3/uL (0.0-0.2) Sodium Level 136 mmol/L (136-145) Potassium Level 3.8 mmol/L (3.5-5.1) Chloride Level 97 mmol/L (98-107) Carbon Dioxide Level 30 mmol/L (21-32) Anion Gap 9 (6-14) Blood Urea Nitrogen 17 mg/dL (8-26) Creatinine 1.0 mg/dL (0.7-1.3) Estimated GFR (Cockcroft-Gault) 87.2 BUN/Creatinine Ratio 17 (6-20) Glucose Level 211 mg/dL (70-99) Lactic Acid Level 2.9 mmol/L (0.4-2.0) Calcium Level 9.3 mg/dL (8.5-10.1) Total Bilirubin 1.1 mg/dL (0.2-1.0) Aspartate Amino Transf (AST/SGOT) 25 U/L (15-37) Alanine Aminotransferase (ALT/SGPT) 25 U/L (16-63) Alkaline Phosphatase 93 U/L (46-116) Total Protein 7.7 g/dL (6.4-8.2) Albumin 3.7 g/dL (3.4-5.0) Albumin/Globulin Ratio 0.9 (1.0-1.7) Urine Collection Type U cath Urine Color Donna Urine Clarity Clear Urine pH 6.0 Urine Specific [place] 1.025 Urine Protein >=300 mg/dL (NEG-TRACE) Urine Glucose (UA) Negative mg/dL (NEG) Urine Ketones (Stick) Negative mg/dL (NEG) Urine Blood Negative (NEG) Urine Nitrite Negative (NEG) Urine Bilirubin Negative (NEG) Urine Urobilinogen Dipstick 1.0 mg/dL (0.2 mg/dL) Urine Leukocyte Esterase Negative (NEG) Urine RBC 0 /HPF (0-2) Urine WBC 0 /HPF (0-4) Urine Amorphous Sediment Present /HPF Urine Bacteria 0 /HPF (0-FEW) Laboratory Tests Test 09/20/17 13:55 09/20/17 14:30 White Blood Count 20.2 x10^3/uL (4.0-11.0) Red Blood Count 5.22 x10^6/uL (4.30-5.70) Hemoglobin 15.8 g/dL (13.0-17.5) Hematocrit 46.7 % (39.0-53.0) Mean Corpuscular Volume 89 fL (79-100) Mean Corpuscular Hemoglobin 30 pg (25-35) Mean Corpuscular Hemoglobin Concent 34 g/dL (31-37) Red Cell Distribution Width 14.6 % (11.5-14.5) Platelet Count 238 x10^3/uL (140-400) Neutrophils (%) (Auto) 87 % (31-73) Lymphocytes (%) (Auto) 4 % (24-48) Monocytes (%) (Auto) 8 % (0-9) Eosinophils (%) (Auto) 0 % (0-3) Basophils (%) (Auto) 0 % (0-3) Neutrophils # (Auto) 17.6 x10^3uL (1.8-7.7) Lymphocytes # (Auto) 0.9 x10^3/uL (1.0-4.8) Monocytes # (Auto) 1.6 x10^3/uL (0.0-1.1) Eosinophils # (Auto) 0.1 x10^3/uL (0.0-0.7) Basophils # (Auto) 0.0 x10^3/uL (0.0-0.2) Sodium Level 136 mmol/L (136-145) Potassium Level 3.8 mmol/L (3.5-5.1) Chloride Level 97 mmol/L (98-107) Carbon Dioxide Level 30 mmol/L (21-32) Anion Gap 9 (6-14) Blood Urea Nitrogen 17 mg/dL (8-26) Creatinine 1.0 mg/dL (0.7-1.3) Estimated GFR (Cockcroft-Gault) 87.2 BUN/Creatinine Ratio 17 (6-20) Glucose Level 211 mg/dL (70-99) Lactic Acid Level 2.9 mmol/L (0.4-2.0) Calcium Level 9.3 mg/dL (8.5-10.1) Total Bilirubin 1.1 mg/dL (0.2-1.0) Aspartate Amino Transf (AST/SGOT) 25 U/L (15-37) Alanine Aminotransferase (ALT/SGPT) 25 U/L (16-63) Alkaline Phosphatase 93 U/L (46-116) Total Protein 7.7 g/dL (6.4-8.2) Albumin 3.7 g/dL (3.4-5.0) Albumin/Globulin Ratio 0.9 (1.0-1.7) Urine Collection Type U cath Urine Color Donna Urine Clarity Clear Urine pH 6.0 Urine Specific [place] 1.025 Urine Protein >=300 mg/dL (NEG-TRACE) Urine Glucose (UA) Negative mg/dL (NEG) Urine Ketones (Stick) Negative mg/dL (NEG) Urine Blood Negative (NEG) Urine Nitrite Negative (NEG) Urine Bilirubin Negative (NEG) Urine Urobilinogen Dipstick 1.0 mg/dL (0.2 mg/dL) Urine Leukocyte Esterase Negative (NEG) Urine RBC 0 /HPF (0-2) Urine WBC 0 /HPF (0-4) Urine Amorphous Sediment Present /HPF Urine Bacteria 0 /HPF (0-FEW) VTE Prophylaxis Ordered VTE Prophylaxis Devices: Yes VTE Pharmacological Prophylaxi: Yes Assessment/Plan Assessment/Plan 1. Aspiration PNA 2. Sepsis with elevated lactate 2.9, WBC 20, sinus tachy and a source 3. Severe dementia now with dysphagia 4 Hx Seizure or seizure like episode, new onset on 05/14/17. 5. 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 Hx Gout. PLAN: Admit 2 MN DNR DNI SW for SNU - family agreaable PT.OT [employer]AY [employer] RE[employer] IVF procalamine NPO till [employer] REPAIRER PPI IV Lovenox SQ dvt prophy HOld PO meds for now until bedside swallow prn IV pushes if BP goes up but I would allow permissive HTN in this elderly Ambulate ALWAYS with assistance Dw family, seen at [facility] OLSON MD Sep 20, 2017 15:54
[2017-09-20 16:20] VITALS: BP 154/86
[2017-09-20 16:22] LABS: PLT ESTIMATE ADEQUATE (ADEQUATE)
--- NOTE | 2017-09-20 17:01 | PDOC ---
PULMONARY PROGRESS NOTES Vitals Vital Signs Date Time Temp Pulse Resp B/P (MAP) Pulse Ox O2 Delivery O2 Flow Rate FiO2 09/20/17 16:20 100.7 105 21 154/86 (108) 93 Room Air 100.7 Lungs: Clear Labs Laboratory Tests Test 09/20/17 13:55 09/20/17 14:30 09/20/17 16:05 White Blood Count 20.2 x10^3/uL (4.0-11.0) Red Blood Count 5.22 x10^6/uL (4.30-5.70) Hemoglobin 15.8 g/dL (13.0-17.5) Hematocrit 46.7 % (39.0-53.0) Mean Corpuscular Volume 89 fL (79-100) Mean Corpuscular Hemoglobin 30 pg (25-35) Mean Corpuscular Hemoglobin Concent 34 g/dL (31-37) Red Cell Distribution Width 14.6 % (11.5-14.5) Platelet Count 238 x10^3/uL (140-400) Neutrophils (%) (Auto) 87 % (31-73) Lymphocytes (%) (Auto) 4 % (24-48) Monocytes (%) (Auto) 8 % (0-9) Eosinophils (%) (Auto) 0 % (0-3) Basophils (%) (Auto) 0 % (0-3) Neutrophils # (Auto) 17.6 x10^3uL (1.8-7.7) Lymphocytes # (Auto) 0.9 x10^3/uL (1.0-4.8) Monocytes # (Auto) 1.6 x10^3/uL (0.0-1.1) Eosinophils # (Auto) 0.1 x10^3/uL (0.0-0.7) Basophils # (Auto) 0.0 x10^3/uL (0.0-0.2) Segmented Neutrophils % 82 % (35-66) Lymphocytes % 8 % (24-48) Monocytes % 10 % (0-10) Platelet Estimate Adequate (ADEQUATE) Sodium Level 136 mmol/L (136-145) Potassium Level 3.8 mmol/L (3.5-5.1) Chloride Level 97 mmol/L (98-107) Carbon Dioxide Level 30 mmol/L (21-32) Anion Gap 9 (6-14) Blood Urea Nitrogen 17 mg/dL (8-26) Creatinine 1.0 mg/dL (0.7-1.3) Estimated GFR (Cockcroft-Gault) 87.2 BUN/Creatinine Ratio 17 (6-20) Glucose Level 211 mg/dL (70-99) Lactic Acid Level 2.9 mmol/L (0.4-2.0) 2.7 mmol/L (0.4-2.0) Calcium Level 9.3 mg/dL (8.5-10.1) Total Bilirubin 1.1 mg/dL (0.2-1.0) Aspartate Amino Transf (AST/SGOT) 25 U/L (15-37) Alanine Aminotransferase (ALT/SGPT) 25 U/L (16-63) Alkaline Phosphatase 93 U/L (46-116) Total Protein 7.7 g/dL (6.4-8.2) Albumin 3.7 g/dL (3.4-5.0) Albumin/Globulin Ratio 0.9 (1.0-1.7) Urine Collection Type U cath Urine Color Donna Urine Clarity Clear Urine pH 6.0 Urine Specific [place] 1.025 Urine Protein >=300 mg/dL (NEG-TRACE) Urine Glucose (UA) Negative mg/dL (NEG) Urine Ketones (Stick) Negative mg/dL (NEG) Urine Blood Negative (NEG) Urine Nitrite Negative (NEG) Urine Bilirubin Negative (NEG) Urine Urobilinogen Dipstick 1.0 mg/dL (0.2 mg/dL) Urine Leukocyte Esterase Negative (NEG) Urine RBC 0 /HPF (0-2) Urine WBC 0 /HPF (0-4) Urine Amorphous Sediment Present /HPF Urine Bacteria 0 /HPF (0-FEW) Laboratory Tests Test 09/20/17 13:55 09/20/17 14:30 09/20/17 16:05 White Blood Count 20.2 x10^3/uL (4.0-11.0) Red Blood Count 5.22 x10^6/uL (4.30-5.70) Hemoglobin 15.8 g/dL (13.0-17.5) Hematocrit 46.7 % (39.0-53.0) Mean Corpuscular Volume 89 fL (79-100) Mean Corpuscular Hemoglobin 30 pg (25-35) Mean Corpuscular Hemoglobin Concent 34 g/dL (31-37) Red Cell Distribution Width 14.6 % (11.5-14.5) Platelet Count 238 x10^3/uL (140-400) Neutrophils (%) (Auto) 87 % (31-73) Lymphocytes (%) (Auto) 4 % (24-48) Monocytes (%) (Auto) 8 % (0-9) Eosinophils (%) (Auto) 0 % (0-3) Basophils (%) (Auto) 0 % (0-3) Neutrophils # (Auto) 17.6 x10^3uL (1.8-7.7) Lymphocytes # (Auto) 0.9 x10^3/uL (1.0-4.8) Monocytes # (Auto) 1.6 x10^3/uL (0.0-1.1) Eosinophils # (Auto) 0.1 x10^3/uL (0.0-0.7) Basophils # (Auto) 0.0 x10^3/uL (0.0-0.2) Segmented Neutrophils % 82 % (35-66) Lymphocytes % 8 % (24-48) Monocytes % 10 % (0-10) Platelet Estimate Adequate (ADEQUATE) Sodium Level 136 mmol/L (136-145) Potassium Level 3.8 mmol/L (3.5-5.1) Chloride Level 97 mmol/L (98-107) Carbon Dioxide Level 30 mmol/L (21-32) Anion Gap 9 (6-14) Blood Urea Nitrogen 17 mg/dL (8-26) Creatinine 1.0 mg/dL (0.7-1.3) Estimated GFR (Cockcroft-Gault) 87.2 BUN/Creatinine Ratio 17 (6-20) Glucose Level 211 mg/dL (70-99) Lactic Acid Level 2.9 mmol/L (0.4-2.0) 2.7 mmol/L (0.4-2.0) Calcium Level 9.3 mg/dL (8.5-10.1) Total Bilirubin 1.1 mg/dL (0.2-1.0) Aspartate Amino Transf (AST/SGOT) 25 U/L (15-37) Alanine Aminotransferase (ALT/SGPT) 25 U/L (16-63) Alkaline Phosphatase 93 U/L (46-116) Total Protein 7.7 g/dL (6.4-8.2) Albumin 3.7 g/dL (3.4-5.0) Albumin/Globulin Ratio 0.9 (1.0-1.7) Urine Collection Type U cath Urine Color Donna Urine Clarity Clear Urine pH 6.0 Urine Specific [place] 1.025 Urine Protein >=300 mg/dL (NEG-TRACE) Urine Glucose (UA) Negative mg/dL (NEG) Urine Ketones (Stick) Negative mg/dL (NEG) Urine Blood Negative (NEG) Urine Nitrite Negative (NEG) Urine Bilirubin Negative (NEG) Urine Urobilinogen Dipstick 1.0 mg/dL (0.2 mg/dL) Urine Leukocyte Esterase Negative (NEG) Urine RBC 0 /HPF (0-2) Urine WBC 0 /HPF (0-4) Urine Amorphous Sediment Present /HPF Urine Bacteria 0 /HPF (0-FEW) Medications Active Scripts Medications Dose Route/Sig Max Daily Dose Days Date Category Melatonin 3 Mg Tablet 3 Mg PO HS 05/15/17 Reported Amitiza (Lubiprostone) 8 Mcg Capsule 8 Mcg PO BID PRN 05/15/17 Reported Refresh Optive Eye Drops (Carboxymethylcellulos/Glycerin) 15 Ml Drops 15 Ml OP BID 05/15/17 Reported Combigan Eye Drops (Brimonidine Tartrate/Timolol) 5 Ml Drops 5 Ml OU BID 05/15/17 Reported Amlodipine Besylate 10 Mg Tablet 10 Mg PO DAILY 05/15/17 Reported Potassium Chloride 20 Meq Tab.er.prt 20 Meq PO BID 08/31/15 Reported Latanoprost 2.5 Ml Drops 1 Drop LEFTEYE HS 02/26/15 Reported Namenda (Memantine Hcl) 10 Mg Tablet 10 Mg PO BID 02/26/15 Reported Donepezil Hcl 10 Mg Tablet 10 Mg PO HS 02/26/15 Reported Allopurinol 300 Mg Tablet 300 Mg PO DAILY 02/26/15 Reported Impression . FULL NOTED DICTATED ASPIRATION PNEUMONIA AGREE WITH CURRENT RX RIP JONES MD Sep 20, 2017 17:01
[2017-09-20] MEDS: PIPERACILLIN/TAZOBACTAM 3.375 GM in IV DEXTROSE 5% 50 ML IV SCH ×2 (17:17→17:33)
[2017-09-20] MEDS: HALOPERIDOL LACTATE 5 MG/ML VIAL. IVP PRN ×2 (17:34→22:26)
[2017-09-20] MEDS ORDERED: MULT1TAB52 PO (18:29)
[2017-09-20] MEDS ORDERED: DUTA0.5C PO (18:29)
[2017-09-20] MEDS: ENOXAPARIN 40 MG/0.4 ML SYRINGE. SQ SCH (18:29)
[2017-09-20] MEDS ORDERED: HALO0.5T PO (18:29)
[2017-09-20 19:30] VITALS: BP 143/79
[2017-09-20] MEDS: LATANOPROST 0.005% OPHTH SOLUTION 2.5ML BOTTLE. OU SCH (21:03)
[2017-09-20] MEDS: FAMOTIDINE 20 MG/2 ML VIAL IVP SCH (21:03)
[2017-09-20] MEDS: AMINO AC 3%/ELECTROLYTE/GLYCER 1,000 ML IV SCH (21:04)
[2017-09-20 23:21] VITALS: BP 139/89
[2017-09-21] MEDS ORDERED: PIPERACILLIN/TAZOBACTAM 3.375 GM in IV DEXTROSE 5% 50 ML IV ONE (00:30)
[2017-09-21] MEDS: IV NORMAL SALINE 1000ML BAG 1,000 ML IV SCH ×2 (00:39→07:42)
--- NOTE | 2017-09-21 00:45 | CONS ---
DATE OF CONSULTATION: 09/20/2017 ATTENDING PHYSICIAN: Dr. Emery. REASON FOR CONSULTATION: The patient is seen in pulmonary consultation at the request of Dr. Emery for abnormal x-ray, possible pneumonia. HISTORY OF PRESENT ILLNESS: The patient is a 81-year-old white male with a history of dementia. states that over the last several days, his mental status was deteriorating. He was also having some difficulty with increasing shortness of breath, a couple of episodes of emesis, he might have choked and aspirated at home. He did cough up some food. He had a low grade temperature. White count was elevated. There is an infiltrate on x-ray, I was asked to see him in consultation. The patient is unable to provide any useful information. He is currently on IV Zosyn. PAST MEDICAL HISTORY: Severe dementia, hypertension, bronchitis, gastroesophageal reflux, osteoarthritis. PAST SURGICAL HISTORY: No recent major surgeries. ALLERGIES: LISINOPRIL. HOME MEDICATIONS: List was reviewed, please see the MRAD. REVIEW OF SYSTEMS: Unable to obtain secondary to the patient's condition. SOCIAL HISTORY: He quit tobacco years ago. PHYSICAL EXAMINATION: GENERAL: The patient was in no significant respiratory distress, currently on room air saturation 92-95%. VITAL SIGNS: T-max was 100.7. HEENT: Eyes, the sclerae were nonicteric. NECK: Jugular venous distention was not elevated. No lymphadenopathy. CHEST: Full expansion. LUNGS: Bilateral rhonchi. No wheezes. CARDIOVASCULAR: Regular rate and rhythm with S1, S2, no S3. ABDOMEN: Soft, nontender, nondistended. EXTREMITIES: No clubbing, cyanosis or edema. NEUROLOGIC: The patient was awake, but not following any commands, moved all extremities involuntarily. LABORATORY DATA: White count was elevated at 20,000, hemoglobin and hematocrit were noted. Electrolytes were noted. Chest x-ray was reviewed. IMPRESSION: 1. Aspiration pneumonia. 2. Fever secondary to above. 3. Acute toxic encephalopathy, present upon admission. 4. Abnormal x-ray. 5. Severe dementia. 6. Hypertension. PLAN: 1. Concur with current medical regimen. 2. Nebulized treatment. 3. Deep venous thrombosis prophylaxis. 4. The patient may require mittens to prevent any harm to himself, he is pulling on tubes and wires. The above was discussed with and daughter at the bedside. I do appreciate the privilege in sharing the patient's care. RIP JONES MD DR: KRYSTIN/brennan JOB#: [id number] / [id number]
[2017-09-21 03:45] VITALS: BP 148/83
[2017-09-21] MEDS: AMINO AC 3%/ELECTROLYTE/GLYCER 1,000 ML IV SCH (04:30)
[2017-09-21 04:36] LABS: BASO % 0 % (0-3); EOS % 1 % (0-3); HEMATOCRIT 39.5 % (39.0-53.0); HEMOGLOBIN 13.5 g/dL (13.0-17.5); LYMPH # 0.9 x10^3/uL (1.0-4.8); LYMPH % 6 % (24-48); MEAN CORPUSCULAR HEMOGLOBIN 30 pg (25-35); MEAN CORPUSCULAR HGB CONC 34 g/dL (31-37); MEAN CORPUSCULAR VOLUME 89 fL (79-100); MONO % 8 % (0-9); NEUT % 85 % (31-73); PLATELET COUNT 131 x10^3/uL (140-400); RED BLOOD COUNT 4.43 x10^6/uL (4.30-5.70); RED CELL DISTRIBUTION WIDTH 14.3 % (11.5-14.5); WHITE BLOOD COUNT 15.9 x10^3/uL (4.0-11.0)
[2017-09-21 05:11] LABS: CALCIUM 8.4 mg/dL (8.5-10.1); CREATININE 0.9 mg/dL (0.7-1.3); GFR 98.5; POTASSIUM 3.2 mmol/L (3.5-5.1)
[2017-09-21] MEDS: PIPERACILLIN/TAZO IV Push 3.375 GM VIAL. IVP SCH ×3 (06:24→17:07)
[2017-09-21 07:00] VITALS: BP 114/67
[2017-09-21] MEDS: FAMOTIDINE 20 MG/2 ML VIAL IVP SCH ×2 (09:13→22:35)
[2017-09-21 11:00] VITALS: BP 147/88
[2017-09-21] MEDS: POTASSIUM CHLORIDE 10MEQ 100 ML IV SCH ×4 (11:01→14:57)
--- NOTE | 2017-09-21 11:04 | PDOC ---
PROGRESS NOTES Chief Complaint Chief Complaint 1. Aspiration PNA 2. Sepsis with elevated lactate 2.9, WBC 20, sinus tachy and a source 3. Severe dementia now with dysphagia 4 Hx Seizure or seizure like episode, new onset on 05/14/17. 5. 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 Hx Gout History of Present Illness History of Present Illness Better today Walked two rounds in the [facility]ER has yet to evaluate Hungry Family really concerned about NPO for long time now WBC down to 15 from 20 NO fevers Good BS, equal no wheezes Family does tell me he has been worsening in dementia since PL:AN: Bedside RN eval, if able to swallow pills, then full liquid diet till formal TILE SPRAYER eval HH plans on dc - family prefers that, might need some encouraging DNR Supportive meds Vitals Vitals Vital Signs Date Time Temp Pulse Resp B/P (MAP) Pulse Ox O2 Delivery O2 Flow Rate FiO2 09/21/17 07:42 Room Air 09/21/17 07:00 97.9 72 22 114/67 (83) 99 97.9 Physical Exam General: Cooperative, No acute distress Heart: Regular rate Lungs: Clear Abdomen: Normal bowel sounds, Soft, No tenderness, No hepatosplenomegaly, No masses Extremities: No clubbing, No cyanosis, No edema, Normal pulses, No tenderness/ swelling Skin: No rashes, No breakdown, No significant lesion Labs LABS Laboratory Tests Test 09/20/17 13:55 09/20/17 14:30 09/20/17 16:05 09/21/17 03:35 White Blood Count 20.2 x10^3/uL (4.0-11.0) 15.9 x10^3/uL (4.0-11.0) Red Blood Count 5.22 x10^6/uL (4.30-5.70) 4.43 x10^6/uL (4.30-5.70) Hemoglobin 15.8 g/dL (13.0-17.5) 13.5 g/dL (13.0-17.5) Hematocrit 46.7 % (39.0-53.0) 39.5 % (39.0-53.0) Mean Corpuscular Volume 89 fL (79-100) 89 fL (79-100) Mean Corpuscular Hemoglobin 30 pg (25-35) 30 pg (25-35) Mean Corpuscular Hemoglobin Concent 34 g/dL (31-37) 34 g/dL (31-37) Red Cell Distribution Width 14.6 % (11.5-14.5) 14.3 % (11.5-14.5) Platelet Count 238 x10^3/uL (140-400) 131 x10^3/uL (140-400) Neutrophils (%) (Auto) 87 % (31-73) 85 % (31-73) Lymphocytes (%) (Auto) 4 % (24-48) 6 % (24-48) Monocytes (%) (Auto) 8 % (0-9) 8 % (0-9) Eosinophils (%) (Auto) 0 % (0-3) 1 % (0-3) Basophils (%) (Auto) 0 % (0-3) 0 % (0-3) Neutrophils # (Auto) 17.6 x10^3uL (1.8-7.7) 13.5 x10^3uL (1.8-7.7) Lymphocytes # (Auto) 0.9 x10^3/uL (1.0-4.8) 0.9 x10^3/uL (1.0-4.8) Monocytes # (Auto) 1.6 x10^3/uL (0.0-1.1) 1.3 x10^3/uL (0.0-1.1) Eosinophils # (Auto) 0.1 x10^3/uL (0.0-0.7) 0.2 x10^3/uL (0.0-0.7) Basophils # (Auto) 0.0 x10^3/uL (0.0-0.2) 0.0 x10^3/uL (0.0-0.2) Segmented Neutrophils % 82 % (35-66) Lymphocytes % 8 % (24-48) Monocytes % 10 % (0-10) Platelet Estimate Adequate (ADEQUATE) Sodium Level 136 mmol/L (136-145) 139 mmol/L (136-145) Potassium Level 3.8 mmol/L (3.5-5.1) 3.2 mmol/L (3.5-5.1) Chloride Level 97 mmol/L (98-107) 103 mmol/L (98-107) Carbon Dioxide Level 30 mmol/L (21-32) 30 mmol/L (21-32) Anion Gap 9 (6-14) 6 (6-14) Blood Urea Nitrogen 17 mg/dL (8-26) 13 mg/dL (8-26) Creatinine 1.0 mg/dL (0.7-1.3) 0.9 mg/dL (0.7-1.3) Estimated GFR (Cockcroft-Gault) 87.2 98.5 BUN/Creatinine Ratio 17 (6-20) Glucose Level 211 mg/dL (70-99) 120 mg/dL (70-99) Lactic Acid Level 2.9 mmol/L (0.4-2.0) 2.7 mmol/L (0.4-2.0) Calcium Level 9.3 mg/dL (8.5-10.1) 8.4 mg/dL (8.5-10.1) Total Bilirubin 1.1 mg/dL (0.2-1.0) Aspartate Amino Transf (AST/SGOT) 25 U/L (15-37) Alanine Aminotransferase (ALT/SGPT) 25 U/L (16-63) Alkaline Phosphatase 93 U/L (46-116) Total Protein 7.7 g/dL (6.4-8.2) Albumin 3.7 g/dL (3.4-5.0) Albumin/Globulin Ratio 0.9 (1.0-1.7) Urine Collection Type U cath Urine Color Donna Urine Clarity Clear Urine pH 6.0 Urine Specific [place] 1.025 Urine Protein >=300 mg/dL (NEG-TRACE) Urine Glucose (UA) Negative mg/dL (NEG) Urine Ketones (Stick) Negative mg/dL (NEG) Urine Blood Negative (NEG) Urine Nitrite Negative (NEG) Urine Bilirubin Negative (NEG) Urine Urobilinogen Dipstick 1.0 mg/dL (0.2 mg/dL) Urine Leukocyte Esterase Negative (NEG) Urine RBC 0 /HPF (0-2) Urine WBC 0 /HPF (0-4) Urine Amorphous Sediment Present /HPF Urine Bacteria 0 /HPF (0-FEW) Review of Systems Review of Systems dementia. limited rOS Assessment and Plan Assessmemt and Plan Problems Medical Problems: (1) Acute metabolic encephalopathy Status: Acute (2) Hyperglycemia Status: Acute Problems: Comment Review of Relevant I have reviewed the following items davey (where applicable) has been applied. Labs Laboratory Tests Test 09/20/17 13:55 09/20/17 14:30 09/20/17 16:05 09/21/17 03:35 White Blood Count 20.2 x10^3/uL (4.0-11.0) 15.9 x10^3/uL (4.0-11.0) Red Blood Count 5.22 x10^6/uL (4.30-5.70) 4.43 x10^6/uL (4.30-5.70) Hemoglobin 15.8 g/dL (13.0-17.5) 13.5 g/dL (13.0-17.5) Hematocrit 46.7 % (39.0-53.0) 39.5 % (39.0-53.0) Mean Corpuscular Volume 89 fL (79-100) 89 fL (79-100) Mean Corpuscular Hemoglobin 30 pg (25-35) 30 pg (25-35) Mean Corpuscular Hemoglobin Concent 34 g/dL (31-37) 34 g/dL (31-37) Red Cell Distribution Width 14.6 % (11.5-14.5) 14.3 % (11.5-14.5) Platelet Count 238 x10^3/uL (140-400) 131 x10^3/uL (140-400) Neutrophils (%) (Auto) 87 % (31-73) 85 % (31-73) Lymphocytes (%) (Auto) 4 % (24-48) 6 % (24-48) Monocytes (%) (Auto) 8 % (0-9) 8 % (0-9) Eosinophils (%) (Auto) 0 % (0-3) 1 % (0-3) Basophils (%) (Auto) 0 % (0-3) 0 % (0-3) Neutrophils # (Auto) 17.6 x10^3uL (1.8-7.7) 13.5 x10^3uL (1.8-7.7) Lymphocytes # (Auto) 0.9 x10^3/uL (1.0-4.8) 0.9 x10^3/uL (1.0-4.8) Monocytes # (Auto) 1.6 x10^3/uL (0.0-1.1) 1.3 x10^3/uL (0.0-1.1) Eosinophils # (Auto) 0.1 x10^3/uL (0.0-0.7) 0.2 x10^3/uL (0.0-0.7) Basophils # (Auto) 0.0 x10^3/uL (0.0-0.2) 0.0 x10^3/uL (0.0-0.2) Segmented Neutrophils % 82 % (35-66) Lymphocytes % 8 % (24-48) Monocytes % 10 % (0-10) Platelet Estimate Adequate (ADEQUATE) Sodium Level 136 mmol/L (136-145) 139 mmol/L (136-145) Potassium Level 3.8 mmol/L (3.5-5.1) 3.2 mmol/L (3.5-5.1) Chloride Level 97 mmol/L (98-107) 103 mmol/L (98-107) Carbon Dioxide Level 30 mmol/L (21-32) 30 mmol/L (21-32) Anion Gap 9 (6-14) 6 (6-14) Blood Urea Nitrogen 17 mg/dL (8-26) 13 mg/dL (8-26) Creatinine 1.0 mg/dL (0.7-1.3) 0.9 mg/dL (0.7-1.3) Estimated GFR (Cockcroft-Gault) 87.2 98.5 BUN/Creatinine Ratio 17 (6-20) Glucose Level 211 mg/dL (70-99) 120 mg/dL (70-99) Lactic Acid Level 2.9 mmol/L (0.4-2.0) 2.7 mmol/L (0.4-2.0) Calcium Level 9.3 mg/dL (8.5-10.1) 8.4 mg/dL (8.5-10.1) Total Bilirubin 1.1 mg/dL (0.2-1.0) Aspartate Amino Transf (AST/SGOT) 25 U/L (15-37) Alanine Aminotransferase (ALT/SGPT) 25 U/L (16-63) Alkaline Phosphatase 93 U/L (46-116) Total Protein 7.7 g/dL (6.4-8.2) Albumin 3.7 g/dL (3.4-5.0) Albumin/Globulin Ratio 0.9 (1.0-1.7) Urine Collection Type U cath Urine Color Donna Urine Clarity Clear Urine pH 6.0 Urine Specific [place] 1.025 Urine Protein >=300 mg/dL (NEG-TRACE) Urine Glucose (UA) Negative mg/dL (NEG) Urine Ketones (Stick) Negative mg/dL (NEG) Urine Blood Negative (NEG) Urine Nitrite Negative (NEG) Urine Bilirubin Negative (NEG) Urine Urobilinogen Dipstick 1.0 mg/dL (0.2 mg/dL) Urine Leukocyte Esterase Negative (NEG) Urine RBC 0 /HPF (0-2) Urine WBC 0 /HPF (0-4) Urine Amorphous Sediment Present /HPF Urine Bacteria 0 /HPF (0-FEW) Laboratory Tests Test 09/20/17 13:55 09/20/17 14:30 09/20/17 16:05 09/21/17 03:35 White Blood Count 20.2 x10^3/uL (4.0-11.0) 15.9 x10^3/uL (4.0-11.0) Red Blood Count 5.22 x10^6/uL (4.30-5.70) 4.43 x10^6/uL (4.30-5.70) Hemoglobin 15.8 g/dL (13.0-17.5) 13.5 g/dL (13.0-17.5) Hematocrit 46.7 % (39.0-53.0) 39.5 % (39.0-53.0) Mean Corpuscular Volume 89 fL (79-100) 89 fL (79-100) Mean Corpuscular Hemoglobin 30 pg (25-35) 30 pg (25-35) Mean Corpuscular Hemoglobin Concent 34 g/dL (31-37) 34 g/dL (31-37) Red Cell Distribution Width 14.6 % (11.5-14.5) 14.3 % (11.5-14.5) Platelet Count 238 x10^3/uL (140-400) 131 x10^3/uL (140-400) Neutrophils (%) (Auto) 87 % (31-73) 85 % (31-73) Lymphocytes (%) (Auto) 4 % (24-48) 6 % (24-48) Monocytes (%) (Auto) 8 % (0-9) 8 % (0-9) Eosinophils (%) (Auto) 0 % (0-3) 1 % (0-3) Basophils (%) (Auto) 0 % (0-3) 0 % (0-3) Neutrophils # (Auto) 17.6 x10^3uL (1.8-7.7) 13.5 x10^3uL (1.8-7.7) Lymphocytes # (Auto) 0.9 x10^3/uL (1.0-4.8) 0.9 x10^3/uL (1.0-4.8) Monocytes # (Auto) 1.6 x10^3/uL (0.0-1.1) 1.3 x10^3/uL (0.0-1.1) Eosinophils # (Auto) 0.1 x10^3/uL (0.0-0.7) 0.2 x10^3/uL (0.0-0.7) Basophils # (Auto) 0.0 x10^3/uL (0.0-0.2) 0.0 x10^3/uL (0.0-0.2) Segmented Neutrophils % 82 % (35-66) Lymphocytes % 8 % (24-48) Monocytes % 10 % (0-10) Platelet Estimate Adequate (ADEQUATE) Sodium Level 136 mmol/L (136-145) 139 mmol/L (136-145) Potassium Level 3.8 mmol/L (3.5-5.1) 3.2 mmol/L (3.5-5.1) Chloride Level 97 mmol/L (98-107) 103 mmol/L (98-107) Carbon Dioxide Level 30 mmol/L (21-32) 30 mmol/L (21-32) Anion Gap 9 (6-14) 6 (6-14) Blood Urea Nitrogen 17 mg/dL (8-26) 13 mg/dL (8-26) Creatinine 1.0 mg/dL (0.7-1.3) 0.9 mg/dL (0.7-1.3) Estimated GFR (Cockcroft-Gault) 87.2 98.5 BUN/Creatinine Ratio 17 (6-20) Glucose Level 211 mg/dL (70-99) 120 mg/dL (70-99) Lactic Acid Level 2.9 mmol/L (0.4-2.0) 2.7 mmol/L (0.4-2.0) Calcium Level 9.3 mg/dL (8.5-10.1) 8.4 mg/dL (8.5-10.1) Total Bilirubin 1.1 mg/dL (0.2-1.0) Aspartate Amino Transf (AST/SGOT) 25 U/L (15-37) Alanine Aminotransferase (ALT/SGPT) 25 U/L (16-63) Alkaline Phosphatase 93 U/L (46-116) Total Protein 7.7 g/dL (6.4-8.2) Albumin 3.7 g/dL (3.4-5.0) Albumin/Globulin Ratio 0.9 (1.0-1.7) Urine Collection Type U cath Urine Color Donna Urine Clarity Clear Urine pH 6.0 Urine Specific [place] 1.025 Urine Protein >=300 mg/dL (NEG-TRACE) Urine Glucose (UA) Negative mg/dL (NEG) Urine Ketones (Stick) Negative mg/dL (NEG) Urine Blood Negative (NEG) Urine Nitrite Negative (NEG) Urine Bilirubin Negative (NEG) Urine Urobilinogen Dipstick 1.0 mg/dL (0.2 mg/dL) Urine Leukocyte Esterase Negative (NEG) Urine RBC 0 /HPF (0-2) Urine WBC 0 /HPF (0-4) Urine Amorphous Sediment Present /HPF Urine Bacteria 0 /HPF (0-FEW) Medications Current Medications Sodium Chloride 1,000 ml @ 500 mls/hr Q2H IV Last administered on 09/20/17t 19:44; Start 09/20/17 at 14:26; Stop 09/20/17 at 18:55; Status DC Piperacillin Sod/ Tazobactam Sod (Zosyn Per Pharmacy) 1 each PRN DAILY PRN MC SEE COMMENTS; Start 09/20/17 at 15:45 Ondansetron HCl (Zofran) 4 mg PRN Q8HRS PRN IV NAUSEA/VOMITING; Start at 15:45; Stop 09/21/17 at 15:44 Sodium Chloride 1,000 ml @ 125 mls/hr Q8H IV Last administered on 09/21/17 00:39; Start 09/20/17 at 15:42; Stop 09/21/17 at 15:41 Acetaminophen (Tylenol) 650 mg PRN Q4HRS PRN PO FEVER; Start 09/20/17 at 15:45 ; Stop 09/21/17 at 15:44 Piperacillin Sod/ Tazobactam Sod 3.375 gm/Dextrose 50 ml @ 100 mls/hr Q6HRS IV Last administered on 09/20/17 17:33; Start 09/20/17 at 18:00; Stop at 05:00; Status DC Amino Acids/ Glycerin/ Electrolytes 1,000 ml @ 80 mls/hr [id number] IV Last administered on 09/21/17 04:30; Start 09/20/17 at 16:00 Enoxaparin Sodium (Lovenox 40mg Syringe) 40 mg Q24H SQ Last administered on 18:29; Start 09/20/17 at 15:45 Famotidine (Pepcid) 20 mg BID IVP Last administered on 09/21/17 09:13; Start 09/20/17 at 21:00 Acetaminophen (Tylenol) 500 mg PRN Q6HRS PRN PO MILD PAIN / TEMP; Start at 15:45 Acetaminophen (Tylenol) 120 mg PRN Q6HRS PRN VA MILD PAIN / TEMP Last administered on 09/20/17 17:34; Start 09/20/17 at 15:45 Latanoprost (Xalatan) 1 drop HS OU Last administered on 09/20/17 21:03; Start 09/20/17 at 21:00 Haloperidol Lactate (Haldol) 5 mg PRN Q6HRS PRN IVP AGITATION Last administered on 09/20/17 22:26; Start 09/20/17 at 17:15 Piperacillin Sod/ Tazobactam Sod (Zosyn) 3.375 gm Q6HRS IVP Last administered on 09/21/17 06:24; Start 09/21/17 at 06:00 Piperacillin Sod/ Tazobactam Sod 3.375 gm/Dextrose 50 ml @ 100 mls/hr 1X ONCE IV Last administered on 09/21/17t 00:39; Start 09/21/17 at 00:30; Stop 09/21 at 00:59; Status DC Potassium Chloride 100 ml @ 100 mls/hr Q1H IV ; Start 09/21/17 at 10:30; Stop 09/21/17 at 14:29 Active Scripts Active Reported Haloperidol 0.5 Mg Tablet 0.5 Mg PO BID Multivitamins (Multivitamin) 1 Each Tablet 1 Tab PO DAILY Avodart (Dutasteride) 0.5 Mg Capsule 1 Cap PO HS Melatonin 3 Mg Tablet 3 Mg PO HS Amitiza (Lubiprostone) 8 Mcg Capsule 8 Mcg PO BID PRN Refresh Optive Eye Drops (Carboxymethylcellulos/Glycerin) 15 Ml Drops 15 Ml OP BID Combigan Eye Drops (Brimonidine Tartrate/Timolol) 5 Ml Drops 5 Ml OU BID Amlodipine Besylate 10 Mg Tablet 10 Mg PO DAILY Potassium Chloride 20 Meq Tab.er.prt 20 Meq PO BID Latanoprost 2.5 Ml Drops 1 Drop LEFTEYE HS Namenda (Memantine Hcl) 10 Mg Tablet 10 Mg PO BID Donepezil Hcl 10 Mg Tablet 10 Mg PO HS Allopurinol 300 Mg Tablet 300 Mg PO DAILY Vitals/I & O Vital Sign - Last 24 Hours 09/20/17 09/20/17 09/20/17 09/20/17 13:54 15:45 16:20 16:53 Temp 100.4 100.7 100.4 100.7 Pulse 124 113 105 Resp 20 20 21 B/P (MAP) 145/87 (106) 168/93 (118) 154/86 (108) Pulse Ox 95 92 93 O2 Delivery Room Air Room Air Room Air Room Air 09/20/17 09/20/17 09/20/17 09/21/17 19:30 20:00 23:21 03:45 Temp 98.4 97.7 97.7 98.4 97.7 97.7 Pulse 101 103 96 Resp 21 22 22 B/P (MAP) 143/79 (100) 139/89 (106) 148/83 (104) Pulse Ox 91 91 92 O2 Delivery Room Air Room Air Room Air Room Air 09/21/17 09/21/17 07:00 07:42 Temp 97.9 97.9 Pulse 72 Resp 22 B/P (MAP) 114/67 (83) Pulse Ox 99 O2 Delivery Room Air Room Air SHILPA LEUNG MD Sep 21, 2017 11:04
--- NOTE | 2017-09-21 11:51 | PDOC ---
PULMONARY PROGRESS NOTES Subjective PT APPEARS LESS SOA Vitals Vital Signs Date Time Temp Pulse Resp B/P (MAP) Pulse Ox O2 Delivery O2 Flow Rate FiO2 09/21/17 11:00 97.2 86 20 147/88 (107) 98 Room Air 97.2 Lungs: Clear, Crackles Cardiovascular: S1, S2 Abdomen: Soft, Non-tender Neuro Exam: Alert, Oriented Extremities: No Edema Skin: Warm Labs Laboratory Tests Test 09/20/17 13:55 09/20/17 14:30 09/20/17 16:05 09/21/17 03:35 White Blood Count 20.2 x10^3/uL (4.0-11.0) 15.9 x10^3/uL (4.0-11.0) Red Blood Count 5.22 x10^6/uL (4.30-5.70) 4.43 x10^6/uL (4.30-5.70) Hemoglobin 15.8 g/dL (13.0-17.5) 13.5 g/dL (13.0-17.5) Hematocrit 46.7 % (39.0-53.0) 39.5 % (39.0-53.0) Mean Corpuscular Volume 89 fL (79-100) 89 fL (79-100) Mean Corpuscular Hemoglobin 30 pg (25-35) 30 pg (25-35) Mean Corpuscular Hemoglobin Concent 34 g/dL (31-37) 34 g/dL (31-37) Red Cell Distribution Width 14.6 % (11.5-14.5) 14.3 % (11.5-14.5) Platelet Count 238 x10^3/uL (140-400) 131 x10^3/uL (140-400) Neutrophils (%) (Auto) 87 % (31-73) 85 % (31-73) Lymphocytes (%) (Auto) 4 % (24-48) 6 % (24-48) Monocytes (%) (Auto) 8 % (0-9) 8 % (0-9) Eosinophils (%) (Auto) 0 % (0-3) 1 % (0-3) Basophils (%) (Auto) 0 % (0-3) 0 % (0-3) Neutrophils # (Auto) 17.6 x10^3uL (1.8-7.7) 13.5 x10^3uL (1.8-7.7) Lymphocytes # (Auto) 0.9 x10^3/uL (1.0-4.8) 0.9 x10^3/uL (1.0-4.8) Monocytes # (Auto) 1.6 x10^3/uL (0.0-1.1) 1.3 x10^3/uL (0.0-1.1) Eosinophils # (Auto) 0.1 x10^3/uL (0.0-0.7) 0.2 x10^3/uL (0.0-0.7) Basophils # (Auto) 0.0 x10^3/uL (0.0-0.2) 0.0 x10^3/uL (0.0-0.2) Segmented Neutrophils % 82 % (35-66) Lymphocytes % 8 % (24-48) Monocytes % 10 % (0-10) Platelet Estimate Adequate (ADEQUATE) Sodium Level 136 mmol/L (136-145) 139 mmol/L (136-145) Potassium Level 3.8 mmol/L (3.5-5.1) 3.2 mmol/L (3.5-5.1) Chloride Level 97 mmol/L (98-107) 103 mmol/L (98-107) Carbon Dioxide Level 30 mmol/L (21-32) 30 mmol/L (21-32) Anion Gap 9 (6-14) 6 (6-14) Blood Urea Nitrogen 17 mg/dL (8-26) 13 mg/dL (8-26) Creatinine 1.0 mg/dL (0.7-1.3) 0.9 mg/dL (0.7-1.3) Estimated GFR (Cockcroft-Gault) 87.2 98.5 BUN/Creatinine Ratio 17 (6-20) Glucose Level 211 mg/dL (70-99) 120 mg/dL (70-99) Lactic Acid Level 2.9 mmol/L (0.4-2.0) 2.7 mmol/L (0.4-2.0) Calcium Level 9.3 mg/dL (8.5-10.1) 8.4 mg/dL (8.5-10.1) Total Bilirubin 1.1 mg/dL (0.2-1.0) Aspartate Amino Transf (AST/SGOT) 25 U/L (15-37) Alanine Aminotransferase (ALT/SGPT) 25 U/L (16-63) Alkaline Phosphatase 93 U/L (46-116) Total Protein 7.7 g/dL (6.4-8.2) Albumin 3.7 g/dL (3.4-5.0) Albumin/Globulin Ratio 0.9 (1.0-1.7) Urine Collection Type U cath Urine Color Donna Urine Clarity Clear Urine pH 6.0 Urine Specific [place] 1.025 Urine Protein >=300 mg/dL (NEG-TRACE) Urine Glucose (UA) Negative mg/dL (NEG) Urine Ketones (Stick) Negative mg/dL (NEG) Urine Blood Negative (NEG) Urine Nitrite Negative (NEG) Urine Bilirubin Negative (NEG) Urine Urobilinogen Dipstick 1.0 mg/dL (0.2 mg/dL) Urine Leukocyte Esterase Negative (NEG) Urine RBC 0 /HPF (0-2) Urine WBC 0 /HPF (0-4) Urine Amorphous Sediment Present /HPF Urine Bacteria 0 /HPF (0-FEW) Laboratory Tests Test 09/20/17 13:55 09/20/17 14:30 09/20/17 16:05 09/21/17 03:35 White Blood Count 20.2 x10^3/uL (4.0-11.0) 15.9 x10^3/uL (4.0-11.0) Red Blood Count 5.22 x10^6/uL (4.30-5.70) 4.43 x10^6/uL (4.30-5.70) Hemoglobin 15.8 g/dL (13.0-17.5) 13.5 g/dL (13.0-17.5) Hematocrit 46.7 % (39.0-53.0) 39.5 % (39.0-53.0) Mean Corpuscular Volume 89 fL (79-100) 89 fL (79-100) Mean Corpuscular Hemoglobin 30 pg (25-35) 30 pg (25-35) Mean Corpuscular Hemoglobin Concent 34 g/dL (31-37) 34 g/dL (31-37) Red Cell Distribution Width 14.6 % (11.5-14.5) 14.3 % (11.5-14.5) Platelet Count 238 x10^3/uL (140-400) 131 x10^3/uL (140-400) Neutrophils (%) (Auto) 87 % (31-73) 85 % (31-73) Lymphocytes (%) (Auto) 4 % (24-48) 6 % (24-48) Monocytes (%) (Auto) 8 % (0-9) 8 % (0-9) Eosinophils (%) (Auto) 0 % (0-3) 1 % (0-3) Basophils (%) (Auto) 0 % (0-3) 0 % (0-3) Neutrophils # (Auto) 17.6 x10^3uL (1.8-7.7) 13.5 x10^3uL (1.8-7.7) Lymphocytes # (Auto) 0.9 x10^3/uL (1.0-4.8) 0.9 x10^3/uL (1.0-4.8) Monocytes # (Auto) 1.6 x10^3/uL (0.0-1.1) 1.3 x10^3/uL (0.0-1.1) Eosinophils # (Auto) 0.1 x10^3/uL (0.0-0.7) 0.2 x10^3/uL (0.0-0.7) Basophils # (Auto) 0.0 x10^3/uL (0.0-0.2) 0.0 x10^3/uL (0.0-0.2) Segmented Neutrophils % 82 % (35-66) Lymphocytes % 8 % (24-48) Monocytes % 10 % (0-10) Platelet Estimate Adequate (ADEQUATE) Sodium Level 136 mmol/L (136-145) 139 mmol/L (136-145) Potassium Level 3.8 mmol/L (3.5-5.1) 3.2 mmol/L (3.5-5.1) Chloride Level 97 mmol/L (98-107) 103 mmol/L (98-107) Carbon Dioxide Level 30 mmol/L (21-32) 30 mmol/L (21-32) Anion Gap 9 (6-14) 6 (6-14) Blood Urea Nitrogen 17 mg/dL (8-26) 13 mg/dL (8-26) Creatinine 1.0 mg/dL (0.7-1.3) 0.9 mg/dL (0.7-1.3) Estimated GFR (Cockcroft-Gault) 87.2 98.5 BUN/Creatinine Ratio 17 (6-20) Glucose Level 211 mg/dL (70-99) 120 mg/dL (70-99) Lactic Acid Level 2.9 mmol/L (0.4-2.0) 2.7 mmol/L (0.4-2.0) Calcium Level 9.3 mg/dL (8.5-10.1) 8.4 mg/dL (8.5-10.1) Total Bilirubin 1.1 mg/dL (0.2-1.0) Aspartate Amino Transf (AST/SGOT) 25 U/L (15-37) Alanine Aminotransferase (ALT/SGPT) 25 U/L (16-63) Alkaline Phosphatase 93 U/L (46-116) Total Protein 7.7 g/dL (6.4-8.2) Albumin 3.7 g/dL (3.4-5.0) Albumin/Globulin Ratio 0.9 (1.0-1.7) Urine Collection Type U cath Urine Color Donna Urine Clarity Clear Urine pH 6.0 Urine Specific Garber 1.025 Urine Protein >=300 mg/dL (NEG-TRACE) Urine Glucose (UA) Negative mg/dL (NEG) Urine Ketones (Stick) Negative mg/dL (NEG) Urine Blood Negative (NEG) Urine Nitrite Negative (NEG) Urine Bilirubin Negative (NEG) Urine Urobilinogen Dipstick 1.0 mg/dL (0.2 mg/dL) Urine Leukocyte Esterase Negative (NEG) Urine RBC 0 /HPF (0-2) Urine WBC 0 /HPF (0-4) Urine Amorphous Sediment Present /HPF Urine Bacteria 0 /HPF (0-FEW) Medications Active Scripts Medications Dose Route/Sig Max Daily Dose Days Date Category Melatonin 3 Mg Tablet 3 Mg PO HS 05/15/17 Reported Amitiza (Lubiprostone) 8 Mcg Capsule 8 Mcg PO BID PRN 05/15/17 Reported Refresh Optive Eye Drops (Carboxymethylcellulos/Glycerin) 15 Ml Drops 15 Ml OP BID 05/15/17 Reported Combigan Eye Drops (Brimonidine Tartrate/Timolol) 5 Ml Drops 5 Ml OU BID 05/15/17 Reported Amlodipine Besylate 10 Mg Tablet 10 Mg PO DAILY 05/15/17 Reported Potassium Chloride 20 Meq Tab.er.prt 20 Meq PO BID 08/31/15 Reported Latanoprost 2.5 Ml Drops 1 Drop LEFTEYE HS 02/26/15 Reported Namenda (Memantine Hcl) 10 Mg Tablet 10 Mg PO BID 02/26/15 Reported Donepezil Hcl 10 Mg Tablet 10 Mg PO HS 02/26/15 Reported Allopurinol 300 Mg Tablet 300 Mg PO DAILY 02/26/15 Reported Impression . IMPRESSION: 1. Aspiration pneumonia. 2. Fever secondary to above. 3. Acute toxic encephalopathy, present upon admission. 4. Abnormal x-ray. 5. Severe dementia. 6. Hypertension. Plan . IMPROVING SPOKE WITH FAMILY THEY [facility] WILL CONSULT PALLIATIVE CARE ON SATURDAY 1. Concur with current medical regimen. 2. Nebulized treatment. 3. Deep venous thrombosis prophylaxis. 4. The patient may require mittens to prevent any harm to himself, he is pulling on tubes and wires. RIP JONES MD Sep 21, 2017 11:51
--- NOTE | 2017-09-21 13:04 | PDOC2 ---
CONSULT Date of Consult Date of Consult DATE: 09/21/17 TIME: 12:59 Reason for Consult Reason for Consult: Dyspnea and tachycardia Referring Physician Referring Physician: Dr. Emery Identification/Chief Complaint Chief Complaint Dyspnea, cough, fever Problems: History of Present Illness Reason for Visit: This patient is a 81-year-old gentleman that has a known history of hypertension and recurrent bronchitis. He has advanced dementia and lives at home with his family. The family has noticed that lately the patient has been having a lot of coughing spells whenever he tries to eat and over the last couple of days this has been getting worse and he has been getting very short of breath, febrile and more confused than usual. He was brought to the emergency room because of the respiratory distress. On arrival to the ER the patient was found to be tachycardic with rates over 130. At the time that I saw the patient in the emergency room there was a concern that the patient may be in atrial fibrillation with a rapid ventricular response but after evaluating the rhythm I felt that he was sinus tachycardia. The patient was unable to cooperate with history Past Medical History Cardiovascular: HTN Pulmonary: Bronchitis CENTRAL NERVOUS SYSTEM: Dementia GI: GERD Musculoskeletal: Osteoarthritis Past Surgical History Past Surgical History: No pertinent history Family History Family History: Family History Unknown Social History No ALCOHOL: none Drugs: None Lives: with Family Current Problem List Problem List Problems Medical Problems: (1) Acute metabolic encephalopathy Status: Acute (2) Hyperglycemia Status: Acute Current Medications Current Medications Current Medications Sodium Chloride 1,000 ml @ 500 mls/hr Q2H IV Last administered on 09/20/17t 19:44; Start 09/20/17 at 14:26; Stop 09/20/17 at 18:55; Status DC Piperacillin Sod/ Tazobactam Sod (Zosyn Per Pharmacy) 1 each PRN DAILY PRN MC SEE COMMENTS; Start 09/20/17 at 15:45 Ondansetron HCl (Zofran) 4 mg PRN Q8HRS PRN IV NAUSEA/VOMITING; Start at 15:45; Stop 09/21/17 at 15:44 Sodium Chloride 1,000 ml @ 125 mls/hr Q8H IV Last administered on 09/21/17t 00:39; Start 09/20/17 at 15:42; Stop 09/21/17 at 15:41 Acetaminophen (Tylenol) 650 mg PRN Q4HRS PRN PO FEVER; Start 09/20/17 at 15:45 ; Stop 09/21/17 at 15:44 Piperacillin Sod/ Tazobactam Sod 3.375 gm/Dextrose 50 ml @ 100 mls/hr Q6HRS IV Last administered on 09/20/17 17:33; Start 09/20/17 at 18:00; Stop at 05:00; Status DC Amino Acids/ Glycerin/ Electrolytes 1,000 ml @ 80 mls/hr [id number] IV Last administered on 09/21/17 04:30; Start 09/20/17 at 16:00 Enoxaparin Sodium (Lovenox 40mg Syringe) 40 mg Q24H SQ Last administered on 18:29; Start 09/20/17 at 15:45 Famotidine (Pepcid) 20 mg BID IVP Last administered on 09/21/17 09:13; Start 09/20/17 at 21:00 Acetaminophen (Tylenol) 500 mg PRN Q6HRS PRN PO MILD PAIN / TEMP; Start at 15:45 Acetaminophen (Tylenol) 120 mg PRN Q6HRS PRN ID MILD PAIN / TEMP Last administered on 09/20/17 17:34; Start 09/20/17 at 15:45 Latanoprost (Xalatan) 1 drop HS OU Last administered on 09/20/17 21:03; Start 09/20/17 at 21:00 Haloperidol Lactate (Haldol) 5 mg PRN Q6HRS PRN IVP AGITATION Last administered on 09/20/17 22:26; Start 09/20/17 at 17:15 Piperacillin Sod/ Tazobactam Sod (Zosyn) 3.375 gm Q6HRS IVP Last administered on 09/21/17 12:31; Start 09/21/17 at 06:00 Piperacillin Sod/ Tazobactam Sod 3.375 gm/Dextrose 50 ml @ 100 mls/hr 1X ONCE IV Last administered on 09/21/17 00:39; Start 09/21/17 at 00:30; Stop 09/21 at 00:59; Status DC Potassium Chloride 100 ml @ 100 mls/hr Q1H IV Last administered on 09/21/17t 12:33; Start 09/21/17 at 10:30; Stop 09/21/17 at 14:29 Active Scripts Active Reported Haloperidol 0.5 Mg Tablet 0.5 Mg PO BID Multivitamins (Multivitamin) 1 Each Tablet 1 Tab PO DAILY Avodart (Dutasteride) 0.5 Mg Capsule 1 Cap PO HS Melatonin 3 Mg Tablet 3 Mg PO HS Amitiza (Lubiprostone) 8 Mcg Capsule 8 Mcg PO BID PRN Refresh Optive Eye Drops (Carboxymethylcellulos/Glycerin) 15 Ml Drops 15 Ml OP BID Combigan Eye Drops (Brimonidine Tartrate/Timolol) 5 Ml Drops 5 Ml OU BID Amlodipine Besylate 10 Mg Tablet 10 Mg PO DAILY Potassium Chloride 20 Meq Tab.er.prt 20 Meq PO BID Latanoprost 2.5 Ml Drops 1 Drop LEFTEYE HS Namenda (Memantine Hcl) 10 Mg Tablet 10 Mg PO BID Donepezil Hcl 10 Mg Tablet 10 Mg PO HS Allopurinol 300 Mg Tablet 300 Mg PO DAILY Allergies Allergies: Coded Allergies: lisinopril (Verified Allergy, Severe, SWELLING OF FACE AND LIPS, 10/31/15) Physical Exam General: moderate distress HEENT: Other (oral mucosa dry) Lungs: Other (breath sounds decreased especially over the right base with diffuse rhonchi) Heart: Other (tachycardic S1-S2.) Abdomen: Normal bowel sounds, Soft Extremities: No edema Vitals VITALS Vital Signs Date Time Temp Pulse Resp B/P (MAP) Pulse Ox O2 Delivery O2 Flow Rate FiO2 09/21/17 11:00 97.2 86 20 147/88 (107) 98 Room Air 97.2 Labs Labs Laboratory Tests Test 09/20/17 13:55 09/20/17 14:30 09/20/17 16:05 09/21/17 03:35 White Blood Count 20.2 x10^3/uL (4.0-11.0) 15.9 x10^3/uL (4.0-11.0) Red Blood Count 5.22 x10^6/uL (4.30-5.70) 4.43 x10^6/uL (4.30-5.70) Hemoglobin 15.8 g/dL (13.0-17.5) 13.5 g/dL (13.0-17.5) Hematocrit 46.7 % (39.0-53.0) 39.5 % (39.0-53.0) Mean Corpuscular Volume 89 fL (79-100) 89 fL (79-100) Mean Corpuscular Hemoglobin 30 pg (25-35) 30 pg (25-35) Mean Corpuscular Hemoglobin Concent 34 g/dL (31-37) 34 g/dL (31-37) Red Cell Distribution Width 14.6 % (11.5-14.5) 14.3 % (11.5-14.5) Platelet Count 238 x10^3/uL (140-400) 131 x10^3/uL (140-400) Neutrophils (%) (Auto) 87 % (31-73) 85 % (31-73) Lymphocytes (%) (Auto) 4 % (24-48) 6 % (24-48) Monocytes (%) (Auto) 8 % (0-9) 8 % (0-9) Eosinophils (%) (Auto) 0 % (0-3) 1 % (0-3) Basophils (%) (Auto) 0 % (0-3) 0 % (0-3) Neutrophils # (Auto) 17.6 x10^3uL (1.8-7.7) 13.5 x10^3uL (1.8-7.7) Lymphocytes # (Auto) 0.9 x10^3/uL (1.0-4.8) 0.9 x10^3/uL (1.0-4.8) Monocytes # (Auto) 1.6 x10^3/uL (0.0-1.1) 1.3 x10^3/uL (0.0-1.1) Eosinophils # (Auto) 0.1 x10^3/uL (0.0-0.7) 0.2 x10^3/uL (0.0-0.7) Basophils # (Auto) 0.0 x10^3/uL (0.0-0.2) 0.0 x10^3/uL (0.0-0.2) Segmented Neutrophils % 82 % (35-66) Lymphocytes % 8 % (24-48) Monocytes % 10 % (0-10) Platelet Estimate Adequate (ADEQUATE) Sodium Level 136 mmol/L (136-145) 139 mmol/L (136-145) Potassium Level 3.8 mmol/L (3.5-5.1) 3.2 mmol/L (3.5-5.1) Chloride Level 97 mmol/L (98-107) 103 mmol/L (98-107) Carbon Dioxide Level 30 mmol/L (21-32) 30 mmol/L (21-32) Anion Gap 9 (6-14) 6 (6-14) Blood Urea Nitrogen 17 mg/dL (8-26) 13 mg/dL (8-26) Creatinine 1.0 mg/dL (0.7-1.3) 0.9 mg/dL (0.7-1.3) Estimated GFR (Cockcroft-Gault) 87.2 98.5 BUN/Creatinine Ratio 17 (6-20) Glucose Level 211 mg/dL (70-99) 120 mg/dL (70-99) Lactic Acid Level 2.9 mmol/L (0.4-2.0) 2.7 mmol/L (0.4-2.0) Calcium Level 9.3 mg/dL (8.5-10.1) 8.4 mg/dL (8.5-10.1) Total Bilirubin 1.1 mg/dL (0.2-1.0) Aspartate Amino Transf (AST/SGOT) 25 U/L (15-37) Alanine Aminotransferase (ALT/SGPT) 25 U/L (16-63) Alkaline Phosphatase 93 U/L (46-116) Total Protein 7.7 g/dL (6.4-8.2) Albumin 3.7 g/dL (3.4-5.0) Albumin/Globulin Ratio 0.9 (1.0-1.7) Urine Collection Type U cath Urine Color Donna Urine Clarity Clear Urine pH 6.0 Urine Specific [place] 1.025 Urine Protein >=300 mg/dL (NEG-TRACE) Urine Glucose (UA) Negative mg/dL (NEG) Urine Ketones (Stick) Negative mg/dL (NEG) Urine Blood Negative (NEG) Urine Nitrite Negative (NEG) Urine Bilirubin Negative (NEG) Urine Urobilinogen Dipstick 1.0 mg/dL (0.2 mg/dL) Urine Leukocyte Esterase Negative (NEG) Urine RBC 0 /HPF (0-2) Urine WBC 0 /HPF (0-4) Urine Amorphous Sediment Present /HPF Urine Bacteria 0 /HPF (0-FEW) Laboratory Tests Test 09/20/17 13:55 09/20/17 14:30 09/20/17 16:05 09/21/17 03:35 White Blood Count 20.2 x10^3/uL (4.0-11.0) 15.9 x10^3/uL (4.0-11.0) Red Blood Count 5.22 x10^6/uL (4.30-5.70) 4.43 x10^6/uL (4.30-5.70) Hemoglobin 15.8 g/dL (13.0-17.5) 13.5 g/dL (13.0-17.5) Hematocrit 46.7 % (39.0-53.0) 39.5 % (39.0-53.0) Mean Corpuscular Volume 89 fL (79-100) 89 fL (79-100) Mean Corpuscular Hemoglobin 30 pg (25-35) 30 pg (25-35) Mean Corpuscular Hemoglobin Concent 34 g/dL (31-37) 34 g/dL (31-37) Red Cell Distribution Width 14.6 % (11.5-14.5) 14.3 % (11.5-14.5) Platelet Count 238 x10^3/uL (140-400) 131 x10^3/uL (140-400) Neutrophils (%) (Auto) 87 % (31-73) 85 % (31-73) Lymphocytes (%) (Auto) 4 % (24-48) 6 % (24-48) Monocytes (%) (Auto) 8 % (0-9) 8 % (0-9) Eosinophils (%) (Auto) 0 % (0-3) 1 % (0-3) Basophils (%) (Auto) 0 % (0-3) 0 % (0-3) Neutrophils # (Auto) 17.6 x10^3uL (1.8-7.7) 13.5 x10^3uL (1.8-7.7) Lymphocytes # (Auto) 0.9 x10^3/uL (1.0-4.8) 0.9 x10^3/uL (1.0-4.8) Monocytes # (Auto) 1.6 x10^3/uL (0.0-1.1) 1.3 x10^3/uL (0.0-1.1) Eosinophils # (Auto) 0.1 x10^3/uL (0.0-0.7) 0.2 x10^3/uL (0.0-0.7) Basophils # (Auto) 0.0 x10^3/uL (0.0-0.2) 0.0 x10^3/uL (0.0-0.2) Segmented Neutrophils % 82 % (35-66) Lymphocytes % 8 % (24-48) Monocytes % 10 % (0-10) Platelet Estimate Adequate (ADEQUATE) Sodium Level 136 mmol/L (136-145) 139 mmol/L (136-145) Potassium Level 3.8 mmol/L (3.5-5.1) 3.2 mmol/L (3.5-5.1) Chloride Level 97 mmol/L (98-107) 103 mmol/L (98-107) Carbon Dioxide Level 30 mmol/L (21-32) 30 mmol/L (21-32) Anion Gap 9 (6-14) 6 (6-14) Blood Urea Nitrogen 17 mg/dL (8-26) 13 mg/dL (8-26) Creatinine 1.0 mg/dL (0.7-1.3) 0.9 mg/dL (0.7-1.3) Estimated GFR (Cockcroft-Gault) 87.2 98.5 BUN/Creatinine Ratio 17 (6-20) Glucose Level 211 mg/dL (70-99) 120 mg/dL (70-99) Lactic Acid Level 2.9 mmol/L (0.4-2.0) 2.7 mmol/L (0.4-2.0) Calcium Level 9.3 mg/dL (8.5-10.1) 8.4 mg/dL (8.5-10.1) Total Bilirubin 1.1 mg/dL (0.2-1.0) Aspartate Amino Transf (AST/SGOT) 25 U/L (15-37) Alanine Aminotransferase (ALT/SGPT) 25 U/L (16-63) Alkaline Phosphatase 93 U/L (46-116) Total Protein 7.7 g/dL (6.4-8.2) Albumin 3.7 g/dL (3.4-5.0) Albumin/Globulin Ratio 0.9 (1.0-1.7) Urine Collection Type U cath Urine Color Donna Urine Clarity Clear Urine pH 6.0 Urine Specific [place] 1.025 Urine Protein >=300 mg/dL (NEG-TRACE) Urine Glucose (UA) Negative mg/dL (NEG) Urine Ketones (Stick) Negative mg/dL (NEG) Urine Blood Negative (NEG) Urine Nitrite Negative (NEG) Urine Bilirubin Negative (NEG) Urine Urobilinogen Dipstick 1.0 mg/dL (0.2 mg/dL) Urine Leukocyte Esterase Negative (NEG) Urine RBC 0 /HPF (0-2) Urine WBC 0 /HPF (0-4) Urine Amorphous Sediment Present /HPF Urine Bacteria 0 /HPF (0-FEW) Assessment/Plan Assessment/Plan Patient comes in with acute respiratory distress that may be secondary to aspiration pneumonia. From a cardiac standpoint he was in sinus tachycardia and appears to be dehydrated. He is septic and I would recommend IV fluids in addition to IV antibiotics. Thank you very much for asking me to participate in the care of this patient YANELY WASHINGTON MD Sep 21, 2017 13:04
[2017-09-21 15:00] VITALS: BP 134/70
[2017-09-21] MEDS: ENOXAPARIN 40 MG/0.4 ML SYRINGE. SQ SCH (17:07)
[2017-09-21 19:30] VITALS: BP 113/72
[2017-09-21] MEDS: LACTOBACILLUS RHAMNOSUS GG 1 CAPSULE. PO SCH (21:00)
[2017-09-21] MEDS: LATANOPROST 0.005% OPHTH SOLUTION 2.5ML BOTTLE. OU SCH (22:34)
[2017-09-21 23:44] VITALS: BP 129/75
[2017-09-22 03:00] VITALS: BP 132/76
[2017-09-22] MEDS: AMINO AC 3%/ELECTROLYTE/GLYCER 1,000 ML IV SCH ×2 (05:30→06:50)
[2017-09-22 06:00] LABS: BASO % 0 % (0-3); EOS % 3 % (0-3); HEMATOCRIT 39.5 % (39.0-53.0); HEMOGLOBIN 13.5 g/dL (13.0-17.5); LYMPH # 0.7 x10^3/uL (1.0-4.8); LYMPH % 5 % (24-48); MEAN CORPUSCULAR HEMOGLOBIN 30 pg (25-35); MEAN CORPUSCULAR HGB CONC 34 g/dL (31-37); MEAN CORPUSCULAR VOLUME 88 fL (79-100); MONO % 10 % (0-9); NEUT % 82 % (31-73); PLATELET COUNT 125 x10^3/uL (140-400); RED BLOOD COUNT 4.47 x10^6/uL (4.30-5.70); RED CELL DISTRIBUTION WIDTH 14.7 % (11.5-14.5); WHITE BLOOD COUNT 12.9 x10^3/uL (4.0-11.0)
[2017-09-22 06:07] LABS: CALCIUM 8.9 mg/dL (8.5-10.1); CREATININE 0.9 mg/dL (0.7-1.3)
[2017-09-22 06:08] LABS: GFR 98.5; MAGNESIUM 1.9 mg/dL (1.8-2.4)
[2017-09-22 06:15] LABS: POTASSIUM 2.9 mmol/L (3.5-5.1)
[2017-09-22] MEDS: PIPERACILLIN/TAZO IV Push 3.375 GM VIAL. IVP SCH ×5 (06:49→23:51)
[2017-09-22 07:00] VITALS: BP 108/73
[2017-09-22] MEDS ORDERED: POTASSIUM CHLORIDE 20 MEQ/15 ML ORAL LIQUID. PO ONE (08:00)
[2017-09-22] MEDS: POTASSIUM CHLORIDE 10MEQ 100 ML IV SCH ×4 (08:27→12:01)
[2017-09-22] MEDS: LACTOBACILLUS RHAMNOSUS GG 1 CAPSULE. PO SCH ×2 (08:28→21:49)
[2017-09-22] MEDS: FAMOTIDINE 20 MG/2 ML VIAL IVP SCH ×2 (08:28→21:49)
[2017-09-22 11:00] VITALS: BP 131/83
--- NOTE | 2017-09-22 12:23 | PDOC ---
PROGRESS NOTES Chief Complaint Chief Complaint 1. Aspiration PNA 2. Sepsis with elevated lactate 2.9, WBC 20, sinus tachy and a source 3. Severe dementia now with dysphagia 4 Hx Seizure or seizure like episode, new onset on 05/14/17. 5. 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 Hx Gout 8. Critical hypokalemia History of Present Illness History of Present Illness Weaker today than his usual K critically low this AM 2.6 On dysphagia 2 diet per [employer] agreeable to HH this time - target dc tmr WBC better down to 12.5 today PLAN: COnt iV abx for now PO abx tmr with HH REcheck K tmr along with Dw whole family at bedside Vitals Vitals Vital Signs Date Time Temp Pulse Resp B/P (MAP) Pulse Ox O2 Delivery O2 Flow Rate FiO2 09/22/17 11:00 98.6 89 22 131/83 (99) 95 Room Air 98.6 Physical Exam General: Oriented X3, Cooperative, moderate distress Heart: Regular rate, Other (tachycardic S1-S2.) Lungs: Clear, Crackles Abdomen: Normal bowel sounds, Soft Extremities: No edema Skin: No rashes, No breakdown, No significant lesion Labs LABS Laboratory Tests Test 09/22/17 05:10 White Blood Count 12.9 x10^3/uL (4.0-11.0) Red Blood Count 4.47 x10^6/uL (4.30-5.70) Hemoglobin 13.5 g/dL (13.0-17.5) Hematocrit 39.5 % (39.0-53.0) Mean Corpuscular Volume 88 fL (79-100) Mean Corpuscular Hemoglobin 30 pg (25-35) Mean Corpuscular Hemoglobin Concent 34 g/dL (31-37) Red Cell Distribution Width 14.7 % (11.5-14.5) Platelet Count 125 x10^3/uL (140-400) Neutrophils (%) (Auto) 82 % (31-73) Lymphocytes (%) (Auto) 5 % (24-48) Monocytes (%) (Auto) 10 % (0-9) Eosinophils (%) (Auto) 3 % (0-3) Basophils (%) (Auto) 0 % (0-3) Neutrophils # (Auto) 10.5 x10^3uL (1.8-7.7) Lymphocytes # (Auto) 0.7 x10^3/uL (1.0-4.8) Monocytes # (Auto) 1.3 x10^3/uL (0.0-1.1) Eosinophils # (Auto) 0.4 x10^3/uL (0.0-0.7) Basophils # (Auto) 0.0 x10^3/uL (0.0-0.2) Sodium Level 139 mmol/L (136-145) Potassium Level 2.9 mmol/L (3.5-5.1) Chloride Level 101 mmol/L (98-107) Carbon Dioxide Level 28 mmol/L (21-32) Anion Gap 10 (6-14) Blood Urea Nitrogen 15 mg/dL (8-26) Creatinine 0.9 mg/dL (0.7-1.3) Estimated GFR (Cockcroft-Gault) 98.5 Glucose Level 99 mg/dL (70-99) Calcium Level 8.9 mg/dL (8.5-10.1) Magnesium Level 1.9 mg/dL (1.8-2.4) Review of Systems Review of Systems dementia, limited Assessment and Plan Assessmemt and Plan Problems Medical Problems: (1) Acute metabolic encephalopathy Status: Acute (2) Hyperglycemia Status: Acute Problems: Comment Review of Relevant I have reviewed the following items davey (where applicable) has been applied. Labs Laboratory Tests Test 09/20/17 13:55 09/20/17 14:30 09/20/17 16:05 09/21/17 03:35 White Blood Count 20.2 x10^3/uL (4.0-11.0) 15.9 x10^3/uL (4.0-11.0) Red Blood Count 5.22 x10^6/uL (4.30-5.70) 4.43 x10^6/uL (4.30-5.70) Hemoglobin 15.8 g/dL (13.0-17.5) 13.5 g/dL (13.0-17.5) Hematocrit 46.7 % (39.0-53.0) 39.5 % (39.0-53.0) Mean Corpuscular Volume 89 fL (79-100) 89 fL (79-100) Mean Corpuscular Hemoglobin 30 pg (25-35) 30 pg (25-35) Mean Corpuscular Hemoglobin Concent 34 g/dL (31-37) 34 g/dL (31-37) Red Cell Distribution Width 14.6 % (11.5-14.5) 14.3 % (11.5-14.5) Platelet Count 238 x10^3/uL (140-400) 131 x10^3/uL (140-400) Neutrophils (%) (Auto) 87 % (31-73) 85 % (31-73) Lymphocytes (%) (Auto) 4 % (24-48) 6 % (24-48) Monocytes (%) (Auto) 8 % (0-9) 8 % (0-9) Eosinophils (%) (Auto) 0 % (0-3) 1 % (0-3) Basophils (%) (Auto) 0 % (0-3) 0 % (0-3) Neutrophils # (Auto) 17.6 x10^3uL (1.8-7.7) 13.5 x10^3uL (1.8-7.7) Lymphocytes # (Auto) 0.9 x10^3/uL (1.0-4.8) 0.9 x10^3/uL (1.0-4.8) Monocytes # (Auto) 1.6 x10^3/uL (0.0-1.1) 1.3 x10^3/uL (0.0-1.1) Eosinophils # (Auto) 0.1 x10^3/uL (0.0-0.7) 0.2 x10^3/uL (0.0-0.7) Basophils # (Auto) 0.0 x10^3/uL (0.0-0.2) 0.0 x10^3/uL (0.0-0.2) Segmented Neutrophils % 82 % (35-66) Lymphocytes % 8 % (24-48) Monocytes % 10 % (0-10) Platelet Estimate Adequate (ADEQUATE) Sodium Level 136 mmol/L (136-145) 139 mmol/L (136-145) Potassium Level 3.8 mmol/L (3.5-5.1) 3.2 mmol/L (3.5-5.1) Chloride Level 97 mmol/L (98-107) 103 mmol/L (98-107) Carbon Dioxide Level 30 mmol/L (21-32) 30 mmol/L (21-32) Anion Gap 9 (6-14) 6 (6-14) Blood Urea Nitrogen 17 mg/dL (8-26) 13 mg/dL (8-26) Creatinine 1.0 mg/dL (0.7-1.3) 0.9 mg/dL (0.7-1.3) Estimated GFR (Cockcroft-Gault) 87.2 98.5 BUN/Creatinine Ratio 17 (6-20) Glucose Level 211 mg/dL (70-99) 120 mg/dL (70-99) Lactic Acid Level 2.9 mmol/L (0.4-2.0) 2.7 mmol/L (0.4-2.0) Calcium Level 9.3 mg/dL (8.5-10.1) 8.4 mg/dL (8.5-10.1) Total Bilirubin 1.1 mg/dL (0.2-1.0) Aspartate Amino Transf (AST/SGOT) 25 U/L (15-37) Alanine Aminotransferase (ALT/SGPT) 25 U/L (16-63) Alkaline Phosphatase 93 U/L (46-116) Total Protein 7.7 g/dL (6.4-8.2) Albumin 3.7 g/dL (3.4-5.0) Albumin/Globulin Ratio 0.9 (1.0-1.7) Urine Collection Type U cath Urine Color Donna Urine Clarity Clear Urine pH 6.0 Urine Specific [place] 1.025 Urine Protein >=300 mg/dL (NEG-TRACE) Urine Glucose (UA) Negative mg/dL (NEG) Urine Ketones (Stick) Negative mg/dL (NEG) Urine Blood Negative (NEG) Urine Nitrite Negative (NEG) Urine Bilirubin Negative (NEG) Urine Urobilinogen Dipstick 1.0 mg/dL (0.2 mg/dL) Urine Leukocyte Esterase Negative (NEG) Urine RBC 0 /HPF (0-2) Urine WBC 0 /HPF (0-4) Urine Amorphous Sediment Present /HPF Urine Bacteria 0 /HPF (0-FEW) Test 09/22/17 05:10 White Blood Count 12.9 x10^3/uL (4.0-11.0) Red Blood Count 4.47 x10^6/uL (4.30-5.70) Hemoglobin 13.5 g/dL (13.0-17.5) Hematocrit 39.5 % (39.0-53.0) Mean Corpuscular Volume 88 fL (79-100) Mean Corpuscular Hemoglobin 30 pg (25-35) Mean Corpuscular Hemoglobin Concent 34 g/dL (31-37) Red Cell Distribution Width 14.7 % (11.5-14.5) Platelet Count 125 x10^3/uL (140-400) Neutrophils (%) (Auto) 82 % (31-73) Lymphocytes (%) (Auto) 5 % (24-48) Monocytes (%) (Auto) 10 % (0-9) Eosinophils (%) (Auto) 3 % (0-3) Basophils (%) (Auto) 0 % (0-3) Neutrophils # (Auto) 10.5 x10^3uL (1.8-7.7) Lymphocytes # (Auto) 0.7 x10^3/uL (1.0-4.8) Monocytes # (Auto) 1.3 x10^3/uL (0.0-1.1) Eosinophils # (Auto) 0.4 x10^3/uL (0.0-0.7) Basophils # (Auto) 0.0 x10^3/uL (0.0-0.2) Sodium Level 139 mmol/L (136-145) Potassium Level 2.9 mmol/L (3.5-5.1) Chloride Level 101 mmol/L (98-107) Carbon Dioxide Level 28 mmol/L (21-32) Anion Gap 10 (6-14) Blood Urea Nitrogen 15 mg/dL (8-26) Creatinine 0.9 mg/dL (0.7-1.3) Estimated GFR (Cockcroft-Gault) 98.5 Glucose Level 99 mg/dL (70-99) Calcium Level 8.9 mg/dL (8.5-10.1) Magnesium Level 1.9 mg/dL (1.8-2.4) Laboratory Tests Test 09/22/17 05:10 White Blood Count 12.9 x10^3/uL (4.0-11.0) Red Blood Count 4.47 x10^6/uL (4.30-5.70) Hemoglobin 13.5 g/dL (13.0-17.5) Hematocrit 39.5 % (39.0-53.0) Mean Corpuscular Volume 88 fL (79-100) Mean Corpuscular Hemoglobin 30 pg (25-35) Mean Corpuscular Hemoglobin Concent 34 g/dL (31-37) Red Cell Distribution Width 14.7 % (11.5-14.5) Platelet Count 125 x10^3/uL (140-400) Neutrophils (%) (Auto) 82 % (31-73) Lymphocytes (%) (Auto) 5 % (24-48) Monocytes (%) (Auto) 10 % (0-9) Eosinophils (%) (Auto) 3 % (0-3) Basophils (%) (Auto) 0 % (0-3) Neutrophils # (Auto) 10.5 x10^3uL (1.8-7.7) Lymphocytes # (Auto) 0.7 x10^3/uL (1.0-4.8) Monocytes # (Auto) 1.3 x10^3/uL (0.0-1.1) Eosinophils # (Auto) 0.4 x10^3/uL (0.0-0.7) Basophils # (Auto) 0.0 x10^3/uL (0.0-0.2) Sodium Level 139 mmol/L (136-145) Potassium Level 2.9 mmol/L (3.5-5.1) Chloride Level 101 mmol/L (98-107) Carbon Dioxide Level 28 mmol/L (21-32) Anion Gap 10 (6-14) Blood Urea Nitrogen 15 mg/dL (8-26) Creatinine 0.9 mg/dL (0.7-1.3) Estimated GFR (Cockcroft-Gault) 98.5 Glucose Level 99 mg/dL (70-99) Calcium Level 8.9 mg/dL (8.5-10.1) Magnesium Level 1.9 mg/dL (1.8-2.4) Microbiology 09/20/17 Blood Culture - Preliminary, Resulted NO GROWTH AFTER 1 DAY Medications Current Medications Sodium Chloride 1,000 ml @ 500 mls/hr Q2H IV Last administered on 09/20/17t 19:44; Start 09/20/17 at 14:26; Stop 09/20/17 at 18:55; Status DC Piperacillin Sod/ Tazobactam Sod (Zosyn Per Pharmacy) 1 each PRN DAILY PRN MC SEE COMMENTS; Start 09/20/17 at 15:45 Ondansetron HCl (Zofran) 4 mg PRN Q8HRS PRN IV NAUSEA/VOMITING; Start at 15:45; Stop 09/21/17 at 15:44; Status DC Sodium Chloride 1,000 ml @ 125 mls/hr Q8H IV Last administered on 09/21/17 00:39; Start 09/20/17 at 15:42; Stop 09/21/17 at 15:41; Status DC Acetaminophen (Tylenol) 650 mg PRN Q4HRS PRN PO FEVER; Start 09/20/17 at 15:45 ; Stop 09/21/17 at 15:44; Status DC Piperacillin Sod/ Tazobactam Sod 3.375 gm/Dextrose 50 ml @ 100 mls/hr Q6HRS IV Last administered on 09/20/17 17:33; Start 09/20/17 at 18:00; Stop at 05:00; Status DC Amino Acids/ Glycerin/ Electrolytes 1,000 ml @ 80 mls/hr [id number] IV Last administered on 09/22/17 06:50; Start 09/20/17 at 16:00 Enoxaparin Sodium (Lovenox 40mg Syringe) 40 mg Q24H SQ Last administered on 17:07; Start 09/20/17 at 15:45 Famotidine (Pepcid) 20 mg BID IVP Last administered on 09/22/17 08:28; Start 09/20/17 at 21:00 Acetaminophen (Tylenol) 500 mg PRN Q6HRS PRN PO MILD PAIN / TEMP; Start at 15:45 Acetaminophen (Tylenol) 120 mg PRN Q6HRS PRN DE MILD PAIN / TEMP Last administered on 09/20/17 17:34; Start 09/20/17 at 15:45 Latanoprost (Xalatan) 1 drop HS OU Last administered on 09/21/17 22:34; Start 09/20/17 at 21:00 Haloperidol Lactate (Haldol) 5 mg PRN Q6HRS PRN IVP AGITATION Last administered on 09/20/17 22:26; Start 09/20/17 at 17:15 Piperacillin Sod/ Tazobactam Sod (Zosyn) 3.375 gm Q6HRS IVP Last administered on 09/22/17 12:00; Start 09/21/17 at 06:00 Piperacillin Sod/ Tazobactam Sod 3.375 gm/Dextrose 50 ml @ 100 mls/hr 1X ONCE IV Last administered on 09/21/17 00:39; Start 09/21/17 at 00:30; Stop 09/21 at 00:59; Status DC Potassium Chloride 100 ml @ 100 mls/hr Q1H IV Last administered on 09/21/17 14:57; Start 09/21/17 at 10:30; Stop 09/21/17 at 14:29; Status DC Lactobacillus Rhamnosus (Culturelle) 1 cap BID PO Last administered on 08:28; Start 09/21/17 at 21:00 Potassium Chloride 100 ml @ 100 mls/hr Q1H IV Last administered on 09/22/17 12:01; Start 09/22/17 at 08:00; Stop 09/22/17 at 11:59; Status DC Potassium Chloride (KCl Oral Soln) 40 meq 1X ONCE PO Last administered on 08:28; Start 09/22/17 at 08:00; Stop 09/22/17 at 08:01; Status DC Active Scripts Active Reported Haloperidol 0.5 Mg Tablet 0.5 Mg PO BID Multivitamins (Multivitamin) 1 Each Tablet 1 Tab PO DAILY Avodart (Dutasteride) 0.5 Mg Capsule 1 Cap PO HS Melatonin 3 Mg Tablet 3 Mg PO HS Amitiza (Lubiprostone) 8 Mcg Capsule 8 Mcg PO BID PRN Refresh Optive Eye Drops (Carboxymethylcellulos/Glycerin) 15 Ml Drops 15 Ml OP BID Combigan Eye Drops (Brimonidine Tartrate/Timolol) 5 Ml Drops 5 Ml OU BID Amlodipine Besylate 10 Mg Tablet 10 Mg PO DAILY Potassium Chloride 20 Meq Tab.er.prt 20 Meq PO BID Latanoprost 2.5 Ml Drops 1 Drop LEFTEYE HS Namenda (Memantine Hcl) 10 Mg Tablet 10 Mg PO BID Donepezil Hcl 10 Mg Tablet 10 Mg PO HS Allopurinol 300 Mg Tablet 300 Mg PO DAILY Vitals/I & O Vital Sign - Last 24 Hours 09/21/17 09/21/17 09/21/17 09/21/17 15:00 19:30 19:30 23:44 Temp 98.2 97.5 98.1 98.2 97.5 98.1 Pulse 66 91 88 Resp 20 22 B/P (MAP) 134/70 (91) 113/72 (86) 129/75 (93) Pulse Ox 96 92 92 O2 Delivery Room Air Room Air Room Air Room Air 09/22/17 09/22/17 09/22/17 09/22/17 03:00 07:00 07:49 11:00 Temp 98.7 98.5 98.6 98.7 98.5 98.6 Pulse 101 87 89 Resp 22 B/P (MAP) 132/76 (94) 108/73 (85) 131/83 (99) Pulse Ox 94 94 95 O2 Delivery Room Air Room Air Room Air Room Air Intake and Output 09/22/17 09/22/17 09/23/17 15:00 23:00 07:00 Intake Total 250 ml Balance 250 ml SHILPA LEUNG MD Sep 22, 2017 12:22
--- NOTE | 2017-09-22 12:41 | PDOC ---
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 I agree with the current plan. Problems Medical Problems: (1) Acute metabolic encephalopathy Status: Acute (2) Hyperglycemia Status: Acute Comment Review of Relevant I have reviewed the following items davey (where applicable) has been applied. Labs Laboratory Tests Test 09/20/17 13:55 09/20/17 14:30 09/20/17 16:05 09/21/17 03:35 White Blood Count 20.2 x10^3/uL (4.0-11.0) 15.9 x10^3/uL (4.0-11.0) Red Blood Count 5.22 x10^6/uL (4.30-5.70) 4.43 x10^6/uL (4.30-5.70) Hemoglobin 15.8 g/dL (13.0-17.5) 13.5 g/dL (13.0-17.5) Hematocrit 46.7 % (39.0-53.0) 39.5 % (39.0-53.0) Mean Corpuscular Volume 89 fL (79-100) 89 fL (79-100) Mean Corpuscular Hemoglobin 30 pg (25-35) 30 pg (25-35) Mean Corpuscular Hemoglobin Concent 34 g/dL (31-37) 34 g/dL (31-37) Red Cell Distribution Width 14.6 % (11.5-14.5) 14.3 % (11.5-14.5) Platelet Count 238 x10^3/uL (140-400) 131 x10^3/uL (140-400) Neutrophils (%) (Auto) 87 % (31-73) 85 % (31-73) Lymphocytes (%) (Auto) 4 % (24-48) 6 % (24-48) Monocytes (%) (Auto) 8 % (0-9) 8 % (0-9) Eosinophils (%) (Auto) 0 % (0-3) 1 % (0-3) Basophils (%) (Auto) 0 % (0-3) 0 % (0-3) Neutrophils # (Auto) 17.6 x10^3uL (1.8-7.7) 13.5 x10^3uL (1.8-7.7) Lymphocytes # (Auto) 0.9 x10^3/uL (1.0-4.8) 0.9 x10^3/uL (1.0-4.8) Monocytes # (Auto) 1.6 x10^3/uL (0.0-1.1) 1.3 x10^3/uL (0.0-1.1) Eosinophils # (Auto) 0.1 x10^3/uL (0.0-0.7) 0.2 x10^3/uL (0.0-0.7) Basophils # (Auto) 0.0 x10^3/uL (0.0-0.2) 0.0 x10^3/uL (0.0-0.2) Segmented Neutrophils % 82 % (35-66) Lymphocytes % 8 % (24-48) Monocytes % 10 % (0-10) Platelet Estimate Adequate (ADEQUATE) Sodium Level 136 mmol/L (136-145) 139 mmol/L (136-145) Potassium Level 3.8 mmol/L (3.5-5.1) 3.2 mmol/L (3.5-5.1) Chloride Level 97 mmol/L (98-107) 103 mmol/L (98-107) Carbon Dioxide Level 30 mmol/L (21-32) 30 mmol/L (21-32) Anion Gap 9 (6-14) 6 (6-14) Blood Urea Nitrogen 17 mg/dL (8-26) 13 mg/dL (8-26) Creatinine 1.0 mg/dL (0.7-1.3) 0.9 mg/dL (0.7-1.3) Estimated GFR (Cockcroft-Gault) 87.2 98.5 BUN/Creatinine Ratio 17 (6-20) Glucose Level 211 mg/dL (70-99) 120 mg/dL (70-99) Lactic Acid Level 2.9 mmol/L (0.4-2.0) 2.7 mmol/L (0.4-2.0) Calcium Level 9.3 mg/dL (8.5-10.1) 8.4 mg/dL (8.5-10.1) Total Bilirubin 1.1 mg/dL (0.2-1.0) Aspartate Amino Transf (AST/SGOT) 25 U/L (15-37) Alanine Aminotransferase (ALT/SGPT) 25 U/L (16-63) Alkaline Phosphatase 93 U/L (46-116) Total Protein 7.7 g/dL (6.4-8.2) Albumin 3.7 g/dL (3.4-5.0) Albumin/Globulin Ratio 0.9 (1.0-1.7) Urine Collection Type U cath Urine Color Donna Urine Clarity Clear Urine pH 6.0 Urine Specific [place] 1.025 Urine Protein >=300 mg/dL (NEG-TRACE) Urine Glucose (UA) Negative mg/dL (NEG) Urine Ketones (Stick) Negative mg/dL (NEG) Urine Blood Negative (NEG) Urine Nitrite Negative (NEG) Urine Bilirubin Negative (NEG) Urine Urobilinogen Dipstick 1.0 mg/dL (0.2 mg/dL) Urine Leukocyte Esterase Negative (NEG) Urine RBC 0 /HPF (0-2) Urine WBC 0 /HPF (0-4) Urine Amorphous Sediment Present /HPF Urine Bacteria 0 /HPF (0-FEW) Test 09/22/17 05:10 White Blood Count 12.9 x10^3/uL (4.0-11.0) Red Blood Count 4.47 x10^6/uL (4.30-5.70) Hemoglobin 13.5 g/dL (13.0-17.5) Hematocrit 39.5 % (39.0-53.0) Mean Corpuscular Volume 88 fL (79-100) Mean Corpuscular Hemoglobin 30 pg (25-35) Mean Corpuscular Hemoglobin Concent 34 g/dL (31-37) Red Cell Distribution Width 14.7 % (11.5-14.5) Platelet Count 125 x10^3/uL (140-400) Neutrophils (%) (Auto) 82 % (31-73) Lymphocytes (%) (Auto) 5 % (24-48) Monocytes (%) (Auto) 10 % (0-9) Eosinophils (%) (Auto) 3 % (0-3) Basophils (%) (Auto) 0 % (0-3) Neutrophils # (Auto) 10.5 x10^3uL (1.8-7.7) Lymphocytes # (Auto) 0.7 x10^3/uL (1.0-4.8) Monocytes # (Auto) 1.3 x10^3/uL (0.0-1.1) Eosinophils # (Auto) 0.4 x10^3/uL (0.0-0.7) Basophils # (Auto) 0.0 x10^3/uL (0.0-0.2) Sodium Level 139 mmol/L (136-145) Potassium Level 2.9 mmol/L (3.5-5.1) Chloride Level 101 mmol/L (98-107) Carbon Dioxide Level 28 mmol/L (21-32) Anion Gap 10 (6-14) Blood Urea Nitrogen 15 mg/dL (8-26) Creatinine 0.9 mg/dL (0.7-1.3) Estimated GFR (Cockcroft-Gault) 98.5 Glucose Level 99 mg/dL (70-99) Calcium Level 8.9 mg/dL (8.5-10.1) Magnesium Level 1.9 mg/dL (1.8-2.4) Laboratory Tests Test 09/22/17 05:10 White Blood Count 12.9 x10^3/uL (4.0-11.0) Red Blood Count 4.47 x10^6/uL (4.30-5.70) Hemoglobin 13.5 g/dL (13.0-17.5) Hematocrit 39.5 % (39.0-53.0) Mean Corpuscular Volume 88 fL (79-100) Mean Corpuscular Hemoglobin 30 pg (25-35) Mean Corpuscular Hemoglobin Concent 34 g/dL (31-37) Red Cell Distribution Width 14.7 % (11.5-14.5) Platelet Count 125 x10^3/uL (140-400) Neutrophils (%) (Auto) 82 % (31-73) Lymphocytes (%) (Auto) 5 % (24-48) Monocytes (%) (Auto) 10 % (0-9) Eosinophils (%) (Auto) 3 % (0-3) Basophils (%) (Auto) 0 % (0-3) Neutrophils # (Auto) 10.5 x10^3uL (1.8-7.7) Lymphocytes # (Auto) 0.7 x10^3/uL (1.0-4.8) Monocytes # (Auto) 1.3 x10^3/uL (0.0-1.1) Eosinophils # (Auto) 0.4 x10^3/uL (0.0-0.7) Basophils # (Auto) 0.0 x10^3/uL (0.0-0.2) Sodium Level 139 mmol/L (136-145) Potassium Level 2.9 mmol/L (3.5-5.1) Chloride Level 101 mmol/L (98-107) Carbon Dioxide Level 28 mmol/L (21-32) Anion Gap 10 (6-14) Blood Urea Nitrogen 15 mg/dL (8-26) Creatinine 0.9 mg/dL (0.7-1.3) Estimated GFR (Cockcroft-Gault) 98.5 Glucose Level 99 mg/dL (70-99) Calcium Level 8.9 mg/dL (8.5-10.1) Magnesium Level 1.9 mg/dL (1.8-2.4) Microbiology 09/20/17 Blood Culture - Preliminary, Resulted NO GROWTH AFTER 1 DAY Medications Current Medications Sodium Chloride 1,000 ml @ 500 mls/hr Q2H IV Last administered on 09/20/17 19:44; Start 09/20/17 at 14:26; Stop 09/20/17 at 18:55; Status DC Piperacillin Sod/ Tazobactam Sod (Zosyn Per Pharmacy) 1 each PRN DAILY PRN MC SEE COMMENTS; Start 09/20/17 at 15:45 Ondansetron HCl (Zofran) 4 mg PRN Q8HRS PRN IV NAUSEA/VOMITING; Start at 15:45; Stop 09/21/17 at 15:44; Status DC Sodium Chloride 1,000 ml @ 125 mls/hr Q8H IV Last administered on 09/21/17 00:39; Start 09/20/17 at 15:42; Stop 09/21/17 at 15:41; Status DC Acetaminophen (Tylenol) 650 mg PRN Q4HRS PRN PO FEVER; Start 09/20/17 at 15:45 ; Stop 09/21/17 at 15:44; Status DC Piperacillin Sod/ Tazobactam Sod 3.375 gm/Dextrose 50 ml @ 100 mls/hr Q6HRS IV Last administered on 09/20/17 17:33; Start 09/20/17 at 18:00; Stop at 05:00; Status DC Amino Acids/ Glycerin/ Electrolytes 1,000 ml @ 80 mls/hr [id number] IV Last administered on 09/22/17 06:50; Start 09/20/17 at 16:00 Enoxaparin Sodium (Lovenox 40mg Syringe) 40 mg Q24H SQ Last administered on 17:07; Start 09/20/17 at 15:45 Famotidine (Pepcid) 20 mg BID IVP Last administered on 09/22/17 08:28; Start 09/20/17 at 21:00 Acetaminophen (Tylenol) 500 mg PRN Q6HRS PRN PO MILD PAIN / TEMP; Start at 15:45 Acetaminophen (Tylenol) 120 mg PRN Q6HRS PRN [place] MILD PAIN / TEMP Last administered on 09/20/17 17:34; Start 09/20/17 at 15:45 Latanoprost (Xalatan) 1 drop HS OU Last administered on 09/21/17 22:34; Start 09/20/17 at 21:00 Haloperidol Lactate (Haldol) 5 mg PRN Q6HRS PRN IVP AGITATION Last administered on 09/20/17 22:26; Start 09/20/17 at 17:15 Piperacillin Sod/ Tazobactam Sod (Zosyn) 3.375 gm Q6HRS IVP Last administered on 09/22/17 12:00; Start 09/21/17 at 06:00 Piperacillin Sod/ Tazobactam Sod 3.375 gm/Dextrose 50 ml @ 100 mls/hr 1X ONCE IV Last administered on 09/21/17 00:39; Start 09/21/17 at 00:30; Stop 09/21 at 00:59; Status DC Potassium Chloride 100 ml @ 100 mls/hr Q1H IV Last administered on 09/21/17 14:57; Start 09/21/17 at 10:30; Stop 09/21/17 at 14:29; Status DC Lactobacillus Rhamnosus (Culturelle) 1 cap BID PO Last administered on 08:28; Start 09/21/17 at 21:00 Potassium Chloride 100 ml @ 100 mls/hr Q1H IV Last administered on 09/22/17 12:01; Start 09/22/17 at 08:00; Stop 09/22/17 at 11:59; Status DC Potassium Chloride (KCl Oral Soln) 40 meq 1X ONCE PO Last administered on 08:28; Start 09/22/17 at 08:00; Stop 09/22/17 at 08:01; Status DC Active Scripts Active Reported Haloperidol 0.5 Mg Tablet 0.5 Mg PO BID Multivitamins (Multivitamin) 1 Each Tablet 1 Tab PO DAILY Avodart (Dutasteride) 0.5 Mg Capsule 1 Cap PO HS Melatonin 3 Mg Tablet 3 Mg PO HS Amitiza (Lubiprostone) 8 Mcg Capsule 8 Mcg PO BID PRN Refresh Optive Eye Drops (Carboxymethylcellulos/Glycerin) 15 Ml Drops 15 Ml OP BID Combigan Eye Drops (Brimonidine Tartrate/Timolol) 5 Ml Drops 5 Ml OU BID Amlodipine Besylate 10 Mg Tablet 10 Mg PO DAILY Potassium Chloride 20 Meq Tab.er.prt 20 Meq PO BID Latanoprost 2.5 Ml Drops 1 Drop LEFTEYE HS Namenda (Memantine Hcl) 10 Mg Tablet 10 Mg PO BID Donepezil Hcl 10 Mg Tablet 10 Mg PO HS Allopurinol 300 Mg Tablet 300 Mg PO DAILY Vitals/I & O Vital Sign - Last 24 Hours 09/21/17 09/21/17 09/21/17 09/21/17 15:00 19:30 19:30 23:44 Temp 98.2 97.5 98.1 98.2 97.5 98.1 Pulse 66 91 88 Resp 20 21 22 B/P (MAP) 134/70 (91) 113/72 (86) 129/75 (93) Pulse Ox 96 92 92 O2 Delivery Room Air Room Air Room Air Room Air 09/22/17 09/22/17 09/22/17 09/22/17 03:00 07:00 07:49 11:00 Temp 98.7 98.5 98.6 98.7 98.5 98.6 Pulse 101 87 89 Resp 22 20 22 B/P (MAP) 132/76 (94) 108/73 (85) 131/83 (99) Pulse Ox 94 94 95 O2 Delivery Room Air Room Air Room Air Room Air Intake and Output 09/22/17 09/22/17 09/23/17 15:00 23:00 07:00 Intake Total 250 ml Balance 250 ml YANELY WASHINGTON MD Sep 22, 2017 12:41
[2017-09-22 15:00] VITALS: BP_SYST 152; BP_SYST 159; BP_DIAS 81; BP_DIAS 92
--- NOTE | 2017-09-22 15:22 | PDOC ---
PULMONARY PROGRESS NOTES Subjective PT APPEARS LESS SOA Vitals Vital Signs Date Time Temp Pulse Resp B/P (MAP) Pulse Ox O2 Delivery O2 Flow Rate FiO2 09/22/17 11:00 98.6 89 22 131/83 (99) 95 Room Air 98.6 Lungs: Clear, Crackles Cardiovascular: S1, S2 Abdomen: Soft, Non-tender Extremities: No Edema Skin: Warm Labs Laboratory Tests Test 09/20/17 16:05 09/21/17 03:35 09/22/17 05:10 Lactic Acid Level 2.7 mmol/L (0.4-2.0) White Blood Count 15.9 x10^3/uL (4.0-11.0) 12.9 x10^3/uL (4.0-11.0) Red Blood Count 4.43 x10^6/uL (4.30-5.70) 4.47 x10^6/uL (4.30-5.70) Hemoglobin 13.5 g/dL (13.0-17.5) 13.5 g/dL (13.0-17.5) Hematocrit 39.5 % (39.0-53.0) 39.5 % (39.0-53.0) Mean Corpuscular Volume 89 fL (79-100) 88 fL (79-100) Mean Corpuscular Hemoglobin 30 pg (25-35) 30 pg (25-35) Mean Corpuscular Hemoglobin Concent 34 g/dL (31-37) 34 g/dL (31-37) Red Cell Distribution Width 14.3 % (11.5-14.5) 14.7 % (11.5-14.5) Platelet Count 131 x10^3/uL (140-400) 125 x10^3/uL (140-400) Neutrophils (%) (Auto) 85 % (31-73) 82 % (31-73) Lymphocytes (%) (Auto) 6 % (24-48) 5 % (24-48) Monocytes (%) (Auto) 8 % (0-9) 10 % (0-9) Eosinophils (%) (Auto) 1 % (0-3) 3 % (0-3) Basophils (%) (Auto) 0 % (0-3) 0 % (0-3) Neutrophils # (Auto) 13.5 x10^3uL (1.8-7.7) 10.5 x10^3uL (1.8-7.7) Lymphocytes # (Auto) 0.9 x10^3/uL (1.0-4.8) 0.7 x10^3/uL (1.0-4.8) Monocytes # (Auto) 1.3 x10^3/uL (0.0-1.1) 1.3 x10^3/uL (0.0-1.1) Eosinophils # (Auto) 0.2 x10^3/uL (0.0-0.7) 0.4 x10^3/uL (0.0-0.7) Basophils # (Auto) 0.0 x10^3/uL (0.0-0.2) 0.0 x10^3/uL (0.0-0.2) Sodium Level 139 mmol/L (136-145) 139 mmol/L (136-145) Potassium Level 3.2 mmol/L (3.5-5.1) 2.9 mmol/L (3.5-5.1) Chloride Level 103 mmol/L (98-107) 101 mmol/L (98-107) Carbon Dioxide Level 30 mmol/L (21-32) 28 mmol/L (21-32) Anion Gap 6 (6-14) 10 (6-14) Blood Urea Nitrogen 13 mg/dL (8-26) 15 mg/dL (8-26) Creatinine 0.9 mg/dL (0.7-1.3) 0.9 mg/dL (0.7-1.3) Estimated GFR (Cockcroft-Gault) 98.5 98.5 Glucose Level 120 mg/dL (70-99) 99 mg/dL (70-99) Calcium Level 8.4 mg/dL (8.5-10.1) 8.9 mg/dL (8.5-10.1) Magnesium Level 1.9 mg/dL (1.8-2.4) Laboratory Tests Test 09/22/17 05:10 White Blood Count 12.9 x10^3/uL (4.0-11.0) Red Blood Count 4.47 x10^6/uL (4.30-5.70) Hemoglobin 13.5 g/dL (13.0-17.5) Hematocrit 39.5 % (39.0-53.0) Mean Corpuscular Volume 88 fL (79-100) Mean Corpuscular Hemoglobin 30 pg (25-35) Mean Corpuscular Hemoglobin Concent 34 g/dL (31-37) Red Cell Distribution Width 14.7 % (11.5-14.5) Platelet Count 125 x10^3/uL (140-400) Neutrophils (%) (Auto) 82 % (31-73) Lymphocytes (%) (Auto) 5 % (24-48) Monocytes (%) (Auto) 10 % (0-9) Eosinophils (%) (Auto) 3 % (0-3) Basophils (%) (Auto) 0 % (0-3) Neutrophils # (Auto) 10.5 x10^3uL (1.8-7.7) Lymphocytes # (Auto) 0.7 x10^3/uL (1.0-4.8) Monocytes # (Auto) 1.3 x10^3/uL (0.0-1.1) Eosinophils # (Auto) 0.4 x10^3/uL (0.0-0.7) Basophils # (Auto) 0.0 x10^3/uL (0.0-0.2) Sodium Level 139 mmol/L (136-145) Potassium Level 2.9 mmol/L (3.5-5.1) Chloride Level 101 mmol/L (98-107) Carbon Dioxide Level 28 mmol/L (21-32) Anion Gap 10 (6-14) Blood Urea Nitrogen 15 mg/dL (8-26) Creatinine 0.9 mg/dL (0.7-1.3) Estimated GFR (Cockcroft-Gault) 98.5 Glucose Level 99 mg/dL (70-99) Calcium Level 8.9 mg/dL (8.5-10.1) Magnesium Level 1.9 mg/dL (1.8-2.4) Medications Active Scripts Medications Dose Route/Sig Max Daily Dose Days Date Category Melatonin 3 Mg Tablet 3 Mg PO HS 05/15/17 Reported Amitiza (Lubiprostone) 8 Mcg Capsule 8 Mcg PO BID PRN 05/15/17 Reported Refresh Optive Eye Drops (Carboxymethylcellulos/Glycerin) 15 Ml Drops 15 Ml OP BID 05/15/17 Reported Combigan Eye Drops (Brimonidine Tartrate/Timolol) 5 Ml Drops 5 Ml OU BID 05/15/17 Reported Amlodipine Besylate 10 Mg Tablet 10 Mg PO DAILY 05/15/17 Reported Potassium Chloride 20 Meq Tab.er.prt 20 Meq PO BID 08/31/15 Reported Latanoprost 2.5 Ml Drops 1 Drop LEFTEYE HS 02/26/15 Reported Namenda (Memantine Hcl) 10 Mg Tablet 10 Mg PO BID 02/26/15 Reported Donepezil Hcl 10 Mg Tablet 10 Mg PO HS 02/26/15 Reported Allopurinol 300 Mg Tablet 300 Mg PO DAILY 02/26/15 Reported Impression . IMPRESSION: 1. Aspiration pneumonia. 2. Fever secondary to above. 3. Acute toxic encephalopathy, present upon admission. 4. Abnormal x-ray. 5. Severe dementia. 6. Hypertension. Plan . CONTINUE THE SAME FOR NOW SPOKE WITH FAMILY THEY ARE CONSIDERING HOME HOSPICE WILL CONSULT PALLIATIVE CARE ON SATURDAY 1. Concur with current medical regimen. 2. Nebulized treatment. 3. Deep venous thrombosis prophylaxis. 4. The patient may require mittens to prevent any harm to himself, he is pulling on tubes and wires. RIP JONES MD Sep 22, 2017 15:22
[2017-09-22] MEDS: ENOXAPARIN 40 MG/0.4 ML SYRINGE. SQ SCH (15:45)
[2017-09-22 19:00] VITALS: BP 154/100
[2017-09-22] MEDS: LATANOPROST 0.005% OPHTH SOLUTION 2.5ML BOTTLE. OU SCH (21:49)
[2017-09-22 23:41] VITALS: BP 150/84
[2017-09-23 03:00] VITALS: BP 156/87
[2017-09-23 05:16] LABS: BASO % 0 % (0-3); EOS % 3 % (0-3); HEMATOCRIT 38.5 % (39.0-53.0); HEMOGLOBIN 13.5 g/dL (13.0-17.5); LYMPH # 0.7 x10^3/uL (1.0-4.8); LYMPH % 7 % (24-48); MEAN CORPUSCULAR HEMOGLOBIN 31 pg (25-35); MEAN CORPUSCULAR HGB CONC 35 g/dL (31-37); MEAN CORPUSCULAR VOLUME 88 fL (79-100); MONO % 13 % (0-9); NEUT % 77 % (31-73); PLATELET COUNT 135 x10^3/uL (140-400); RED BLOOD COUNT 4.36 x10^6/uL (4.30-5.70); RED CELL DISTRIBUTION WIDTH 14.4 % (11.5-14.5); WHITE BLOOD COUNT 10.6 x10^3/uL (4.0-11.0)
[2017-09-23 05:39] LABS: CALCIUM 8.9 mg/dL (8.5-10.1); CREATININE 0.9 mg/dL (0.7-1.3); GFR 98.2; POTASSIUM 3.3 mmol/L (3.5-5.1)
[2017-09-23] MEDS: PIPERACILLIN/TAZO IV Push 3.375 GM VIAL. IVP SCH ×4 (06:35→23:27)
[2017-09-23 07:00] VITALS: BP 154/86
[2017-09-23] MEDS: LACTOBACILLUS RHAMNOSUS GG 1 CAPSULE. PO SCH ×2 (09:00→22:13)
--- NOTE | 2017-09-23 09:19 | PDOC ---
PROGRESS NOTES Subjective Subjective Mr. Culp was nonverbal, and non-comunicative. 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 I had a conversation with the pt's about the prognosis and the options. She decided that she could not take care of him at home by herself and that he would be better in a Hospice House. I agree with this approach. This was discussed with SS and they are coming to talk to her. Comment Review of Relevant I have reviewed the following items davey (where applicable) has been applied. Labs Laboratory Tests Test 09/22/17 05:10 09/23/17 04:45 White Blood Count 12.9 x10^3/uL (4.0-11.0) 10.6 x10^3/uL (4.0-11.0) Red Blood Count 4.47 x10^6/uL (4.30-5.70) 4.36 x10^6/uL (4.30-5.70) Hemoglobin 13.5 g/dL (13.0-17.5) 13.5 g/dL (13.0-17.5) Hematocrit 39.5 % (39.0-53.0) 38.5 % (39.0-53.0) Mean Corpuscular Volume 88 fL (79-100) 88 fL (79-100) Mean Corpuscular Hemoglobin 30 pg (25-35) 31 pg (25-35) Mean Corpuscular Hemoglobin Concent 34 g/dL (31-37) 35 g/dL (31-37) Red Cell Distribution Width 14.7 % (11.5-14.5) 14.4 % (11.5-14.5) Platelet Count 125 x10^3/uL (140-400) 135 x10^3/uL (140-400) Neutrophils (%) (Auto) 82 % (31-73) 77 % (31-73) Lymphocytes (%) (Auto) 5 % (24-48) 7 % (24-48) Monocytes (%) (Auto) 10 % (0-9) 13 % (0-9) Eosinophils (%) (Auto) 3 % (0-3) 3 % (0-3) Basophils (%) (Auto) 0 % (0-3) 0 % (0-3) Neutrophils # (Auto) 10.5 x10^3uL (1.8-7.7) 8.2 x10^3uL (1.8-7.7) Lymphocytes # (Auto) 0.7 x10^3/uL (1.0-4.8) 0.7 x10^3/uL (1.0-4.8) Monocytes # (Auto) 1.3 x10^3/uL (0.0-1.1) 1.4 x10^3/uL (0.0-1.1) Eosinophils # (Auto) 0.4 x10^3/uL (0.0-0.7) 0.3 x10^3/uL (0.0-0.7) Basophils # (Auto) 0.0 x10^3/uL (0.0-0.2) 0.0 x10^3/uL (0.0-0.2) Sodium Level 139 mmol/L (136-145) 137 mmol/L (136-145) Potassium Level 2.9 mmol/L (3.5-5.1) 3.3 mmol/L (3.5-5.1) Chloride Level 101 mmol/L (98-107) 101 mmol/L (98-107) Carbon Dioxide Level 28 mmol/L (21-32) 28 mmol/L (21-32) Anion Gap 10 (6-14) 8 (6-14) Blood Urea Nitrogen 15 mg/dL (8-26) 15 mg/dL (8-26) Creatinine 0.9 mg/dL (0.7-1.3) 0.9 mg/dL (0.7-1.3) Estimated GFR (Cockcroft-Gault) 98.5 98.2 Glucose Level 99 mg/dL (70-99) 104 mg/dL (70-99) Calcium Level 8.9 mg/dL (8.5-10.1) 8.9 mg/dL (8.5-10.1) Magnesium Level 1.9 mg/dL (1.8-2.4) Laboratory Tests Test 09/23/17 04:45 White Blood Count 10.6 x10^3/uL (4.0-11.0) Red Blood Count 4.36 x10^6/uL (4.30-5.70) Hemoglobin 13.5 g/dL (13.0-17.5) Hematocrit 38.5 % (39.0-53.0) Mean Corpuscular Volume 88 fL (79-100) Mean Corpuscular Hemoglobin 31 pg (25-35) Mean Corpuscular Hemoglobin Concent 35 g/dL (31-37) Red Cell Distribution Width 14.4 % (11.5-14.5) Platelet Count 135 x10^3/uL (140-400) Neutrophils (%) (Auto) 77 % (31-73) Lymphocytes (%) (Auto) 7 % (24-48) Monocytes (%) (Auto) 13 % (0-9) Eosinophils (%) (Auto) 3 % (0-3) Basophils (%) (Auto) 0 % (0-3) Neutrophils # (Auto) 8.2 x10^3uL (1.8-7.7) Lymphocytes # (Auto) 0.7 x10^3/uL (1.0-4.8) Monocytes # (Auto) 1.4 x10^3/uL (0.0-1.1) Eosinophils # (Auto) 0.3 x10^3/uL (0.0-0.7) Basophils # (Auto) 0.0 x10^3/uL (0.0-0.2) Sodium Level 137 mmol/L (136-145) Potassium Level 3.3 mmol/L (3.5-5.1) Chloride Level 101 mmol/L (98-107) Carbon Dioxide Level 28 mmol/L (21-32) Anion Gap 8 (6-14) Blood Urea Nitrogen 15 mg/dL (8-26) Creatinine 0.9 mg/dL (0.7-1.3) Estimated GFR (Cockcroft-Gault) 98.2 Glucose Level 104 mg/dL (70-99) Calcium Level 8.9 mg/dL (8.5-10.1) Microbiology 09/20/17 Blood Culture - Preliminary, Resulted NO GROWTH AFTER 2 DAYS Medications Current Medications Sodium Chloride 1,000 ml @ 500 mls/hr Q2H IV Last administered on 09/20/17 19:44; Start 09/20/17 at 14:26; Stop 09/20/17 at 18:55; Status DC Piperacillin Sod/ Tazobactam Sod (Zosyn Per Pharmacy) 1 each PRN DAILY PRN MC SEE COMMENTS; Start 09/20/17 at 15:45 Ondansetron HCl (Zofran) 4 mg PRN Q8HRS PRN IV NAUSEA/VOMITING; Start at 15:45; Stop 09/21/17 at 15:44; Status DC Sodium Chloride 1,000 ml @ 125 mls/hr Q8H IV Last administered on 09/21/17 00:39; Start 09/20/17 at 15:42; Stop 09/21/17 at 15:41; Status DC Acetaminophen (Tylenol) 650 mg PRN Q4HRS PRN PO FEVER; Start 09/20/17 at 15:45 ; Stop 09/21/17 at 15:44; Status DC Piperacillin Sod/ Tazobactam Sod 3.375 gm/Dextrose 50 ml @ 100 mls/hr Q6HRS IV Last administered on 09/20/17 17:33; Start 09/20/17 at 18:00; Stop at 05:00; Status DC Amino Acids/ Glycerin/ Electrolytes 1,000 ml @ 80 mls/hr [id number] IV Last administered on 09/22/17 06:50; Start 09/20/17 at 16:00; Stop 09/22/17 at 13 :01; Status DC Enoxaparin Sodium (Lovenox 40mg Syringe) 40 mg Q24H SQ Last administered on 17:07; Start 09/20/17 at 15:45 Famotidine (Pepcid) 20 mg BID IVP Last administered on 09/22/17 21:49; Start 09/20/17 at 21:00; Stop 09/23/17 at 09:13; Status DC Acetaminophen (Tylenol) 500 mg PRN Q6HRS PRN PO MILD PAIN / TEMP; Start at 15:45 Acetaminophen (Tylenol) 120 mg PRN Q6HRS PRN UT MILD PAIN / TEMP Last administered on 09/20/17 17:34; Start 09/20/17 at 15:45 Latanoprost (Xalatan) 1 drop HS OU Last administered on 09/22/17 21:49; Start 09/20/17 at 21:00 Haloperidol Lactate (Haldol) 5 mg PRN Q6HRS PRN IVP AGITATION Last administered on 09/20/17 22:26; Start 09/20/17 at 17:15 Piperacillin Sod/ Tazobactam Sod (Zosyn) 3.375 gm Q6HRS IVP Last administered on 09/23/17 06:35; Start 09/21/17 at 06:00 Piperacillin Sod/ Tazobactam Sod 3.375 gm/Dextrose 50 ml @ 100 mls/hr 1X ONCE IV Last administered on 09/21/17 00:39; Start 09/21/17 at 00:30; Stop 09/21 at 00:59; Status DC Potassium Chloride 100 ml @ 100 mls/hr Q1H IV Last administered on 09/21/17 14:57; Start 09/21/17 at 10:30; Stop 09/21/17 at 14:29; Status DC Lactobacillus Rhamnosus (Culturelle) 1 cap BID PO Last administered on 21:49; Start 09/21/17 at 21:00 Potassium Chloride 100 ml @ 100 mls/hr Q1H IV Last administered on 09/22/17 12:01; Start 09/22/17 at 08:00; Stop 09/22/17 at 11:59; Status DC Potassium Chloride (KCl Oral Soln) 40 meq 1X ONCE PO Last administered on 08:28; Start 09/22/17 at 08:00; Stop 09/22/17 at 08:01; Status DC Potassium Chloride (KCl Oral Soln) 40 meq 1X ONCE PEG ; Start 09/23/17 at 09: 15; Stop 09/23/17 at 09:16; Status UNV Active Scripts Active Reported Haloperidol 0.5 Mg Tablet 0.5 Mg PO BID Multivitamins (Multivitamin) 1 Each Tablet 1 Tab PO DAILY Avodart (Dutasteride) 0.5 Mg Capsule 1 Cap PO HS Melatonin 3 Mg Tablet 3 Mg PO HS Amitiza (Lubiprostone) 8 Mcg Capsule 8 Mcg PO BID PRN Refresh Optive Eye Drops (Carboxymethylcellulos/Glycerin) 15 Ml Drops 15 Ml OP BID Combigan Eye Drops (Brimonidine Tartrate/Timolol) 5 Ml Drops 5 Ml OU BID Amlodipine Besylate 10 Mg Tablet 10 Mg PO DAILY Potassium Chloride 20 Meq Tab.er.prt 20 Meq PO BID Latanoprost 2.5 Ml Drops 1 Drop LEFTEYE HS Namenda (Memantine Hcl) 10 Mg Tablet 10 Mg PO BID Donepezil Hcl 10 Mg Tablet 10 Mg PO HS Allopurinol 300 Mg Tablet 300 Mg PO DAILY Vitals/I & O Vital Sign - Last 24 Hours 09/22/17 09/22/17 09/22/17 09/22/17 11:00 15:00 15:00 19:00 Temp 98.6 98.2 98.5 98.6 98.2 98.5 Pulse 89 91 101 Resp 22 20 18 B/P (MAP) 131/83 (99) 159/92 (114) 152/81 (104) 154/100 (118) Pulse Ox 95 95 94 O2 Delivery Room Air Room Air Room Air 09/22/17 09/22/17 09/23/17 09/23/17 20:20 23:41 03:00 07:00 Temp 99.3 97.8 98.5 99.3 97.8 98.5 Pulse 83 95 89 Resp 18 20 20 B/P (MAP) 150/84 (106) 156/87 (110) 154/86 (108) Pulse Ox 92 91 92 O2 Delivery Room Air Room Air Room Air Room Air YANELY WASHINGTON MD Sep 23, 2017 09:19
[2017-09-23] MEDS ORDERED: POTASSIUM CHLORIDE 20 MEQ/15 ML ORAL LIQUID. PEG ONE (09:30)
--- NOTE | 2017-09-23 09:56 | PDOC3 ---
Discharge Summary Visit Information Date of Admission: Sep 20, 2017 Date of Discharge: Sep 23, 2017 Admitting Diagnosis Comment: 1. Aspiration PNA 2. Sepsis with elevated lactate 2.9, WBC 20, sinus tachy and a source 3. Severe dementia now with dysphagia 4 Hx Seizure or seizure like episode, new onset on 05/14/17. 5. 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 Hx Gout 8. Dysphagia Final Diagnosis Problems Medical Problems: (1) Acute metabolic encephalopathy Status: Acute (2) Hyperglycemia Status: Acute Brief Hospital Course Allergies Allergies Coded Allergies Type Severity Reaction Last Updated Verified lisinopril Allergy Severe SWELLING OF FACE AND LIPS 10/31/15 Yes Vital Signs Vital Signs Date Time Temp Pulse Resp B/P (MAP) Pulse Ox O2 Delivery O2 Flow Rate FiO2 09/23/17 07:00 98.5 89 20 154/86 (108) 92 Room Air 98.5 Lab Results Laboratory Tests Test 09/22/17 05:10 09/23/17 04:45 White Blood Count 12.9 x10^3/uL (4.0-11.0) 10.6 x10^3/uL (4.0-11.0) Red Blood Count 4.47 x10^6/uL (4.30-5.70) 4.36 x10^6/uL (4.30-5.70) Hemoglobin 13.5 g/dL (13.0-17.5) 13.5 g/dL (13.0-17.5) Hematocrit 39.5 % (39.0-53.0) 38.5 % (39.0-53.0) Mean Corpuscular Volume 88 fL (79-100) 88 fL (79-100) Mean Corpuscular Hemoglobin 30 pg (25-35) 31 pg (25-35) Mean Corpuscular Hemoglobin Concent 34 g/dL (31-37) 35 g/dL (31-37) Red Cell Distribution Width 14.7 % (11.5-14.5) 14.4 % (11.5-14.5) Platelet Count 125 x10^3/uL (140-400) 135 x10^3/uL (140-400) Neutrophils (%) (Auto) 82 % (31-73) 77 % (31-73) Lymphocytes (%) (Auto) 5 % (24-48) 7 % (24-48) Monocytes (%) (Auto) 10 % (0-9) 13 % (0-9) Eosinophils (%) (Auto) 3 % (0-3) 3 % (0-3) Basophils (%) (Auto) 0 % (0-3) 0 % (0-3) Neutrophils # (Auto) 10.5 x10^3uL (1.8-7.7) 8.2 x10^3uL (1.8-7.7) Lymphocytes # (Auto) 0.7 x10^3/uL (1.0-4.8) 0.7 x10^3/uL (1.0-4.8) Monocytes # (Auto) 1.3 x10^3/uL (0.0-1.1) 1.4 x10^3/uL (0.0-1.1) Eosinophils # (Auto) 0.4 x10^3/uL (0.0-0.7) 0.3 x10^3/uL (0.0-0.7) Basophils # (Auto) 0.0 x10^3/uL (0.0-0.2) 0.0 x10^3/uL (0.0-0.2) Sodium Level 139 mmol/L (136-145) 137 mmol/L (136-145) Potassium Level 2.9 mmol/L (3.5-5.1) 3.3 mmol/L (3.5-5.1) Chloride Level 101 mmol/L (98-107) 101 mmol/L (98-107) Carbon Dioxide Level 28 mmol/L (21-32) 28 mmol/L (21-32) Anion Gap 10 (6-14) 8 (6-14) Blood Urea Nitrogen 15 mg/dL (8-26) 15 mg/dL (8-26) Creatinine 0.9 mg/dL (0.7-1.3) 0.9 mg/dL (0.7-1.3) Estimated GFR (Cockcroft-Gault) 98.5 98.2 Glucose Level 99 mg/dL (70-99) 104 mg/dL (70-99) Calcium Level 8.9 mg/dL (8.5-10.1) 8.9 mg/dL (8.5-10.1) Magnesium Level 1.9 mg/dL (1.8-2.4) Laboratory Tests Test 09/23/17 04:45 White Blood Count 10.6 x10^3/uL (4.0-11.0) Red Blood Count 4.36 x10^6/uL (4.30-5.70) Hemoglobin 13.5 g/dL (13.0-17.5) Hematocrit 38.5 % (39.0-53.0) Mean Corpuscular Volume 88 fL (79-100) Mean Corpuscular Hemoglobin 31 pg (25-35) Mean Corpuscular Hemoglobin Concent 35 g/dL (31-37) Red Cell Distribution Width 14.4 % (11.5-14.5) Platelet Count 135 x10^3/uL (140-400) Neutrophils (%) (Auto) 77 % (31-73) Lymphocytes (%) (Auto) 7 % (24-48) Monocytes (%) (Auto) 13 % (0-9) Eosinophils (%) (Auto) 3 % (0-3) Basophils (%) (Auto) 0 % (0-3) Neutrophils # (Auto) 8.2 x10^3uL (1.8-7.7) Lymphocytes # (Auto) 0.7 x10^3/uL (1.0-4.8) Monocytes # (Auto) 1.4 x10^3/uL (0.0-1.1) Eosinophils # (Auto) 0.3 x10^3/uL (0.0-0.7) Basophils # (Auto) 0.0 x10^3/uL (0.0-0.2) Sodium Level 137 mmol/L (136-145) Potassium Level 3.3 mmol/L (3.5-5.1) Chloride Level 101 mmol/L (98-107) Carbon Dioxide Level 28 mmol/L (21-32) Anion Gap 8 (6-14) Blood Urea Nitrogen 15 mg/dL (8-26) Creatinine 0.9 mg/dL (0.7-1.3) Estimated GFR (Cockcroft-Gault) 98.2 Glucose Level 104 mg/dL (70-99) Calcium Level 8.9 mg/dL (8.5-10.1) Brief Hospital Course Mr. Culp is a 82 old male with signif dementia but rather good mobility,. BUt family has noticed more decline in mentation/cognition and sounded like he might have aspirated hence admitted, DERRICK BOAT LEVERMAN recs dysphagia 2, he had PNA on CXR with WBC 20, better on IV zosyn, afebrile, WBC 10 on dc. Hypokalemia some bec of NPO while DERRICK BOAT LEVERMAN eval,. Being dcd on PO Augmentin and Kcl supplements for about a week,. Seen and examined DispO; HH DNR DNI consulst: madan, courtesy (his pt ) and pulmo Discharge Information Condition at Discharge: Improved, Stable Disposition/Orders: D/C to Home w/ HH Scheduled Allopurinol (Allopurinol), 300 MG PO DAILY, (Reported) Amlodipine Besylate (Amlodipine Besylate), 10 MG PO DAILY, (Reported) Brimonidine Tartrate/Timolol (Combigan Eye Drops), 5 ML OU BID, (Reported) Carboxymethylcellulos/Glycerin (Refresh Optive Eye Drops), 15 ML OP BID, ( Reported) Donepezil Hcl (Donepezil Hcl), 10 MG PO HS, (Reported) Dutasteride (Avodart), 1 CAP PO HS, (Reported) Haloperidol (Haloperidol), 0.5 MG PO BID, (Reported) Latanoprost (Latanoprost), 1 DROP LEFTEYE HS, (Reported) Melatonin (Melatonin), 3 MG PO HS, (Reported) Memantine Hcl (Namenda), 10 MG PO BID, (Reported) Multivitamin (Multivitamins), 1 TAB PO DAILY, (Reported) Potassium Chloride (Potassium Chloride), 20 MEQ PO BID, (Reported) Scheduled PRN Lubiprostone (Amitiza), 8 MCG PO BID PRN for CONSTIPATION, (Reported) SHILPA LEUNG MD Sep 23, 2017 09:56
--- NOTE | 2017-09-23 10:09 | PDOC ---
Provider Note Provider Note not ready to take him home today Still wants HH but will consider SNU if it gets too difficult for her at home I did say we could still do SNU Dc stuff done, Rx in chart [facility] t[facility] SHILPA LEUNG MD Sep 23, 2017 10:09
[2017-09-23 11:00] VITALS: BP 156/87
--- NOTE | 2017-09-23 11:12 | PDOC ---
PULMONARY PROGRESS NOTES Subjective PT APPEARS LESS SOA MORE AWAKE Vitals Vital Signs Date Time Temp Pulse Resp B/P (MAP) Pulse Ox O2 Delivery O2 Flow Rate FiO2 09/23/17 07:00 98.5 89 20 154/86 (108) 92 Room Air 98.5 Lungs: Clear, Crackles Cardiovascular: S1, S2 Abdomen: Soft, Non-tender Extremities: No Edema Skin: Warm Labs Laboratory Tests Test 09/22/17 05:10 09/23/17 04:45 White Blood Count 12.9 x10^3/uL (4.0-11.0) 10.6 x10^3/uL (4.0-11.0) Red Blood Count 4.47 x10^6/uL (4.30-5.70) 4.36 x10^6/uL (4.30-5.70) Hemoglobin 13.5 g/dL (13.0-17.5) 13.5 g/dL (13.0-17.5) Hematocrit 39.5 % (39.0-53.0) 38.5 % (39.0-53.0) Mean Corpuscular Volume 88 fL (79-100) 88 fL (79-100) Mean Corpuscular Hemoglobin 30 pg (25-35) 31 pg (25-35) Mean Corpuscular Hemoglobin Concent 34 g/dL (31-37) 35 g/dL (31-37) Red Cell Distribution Width 14.7 % (11.5-14.5) 14.4 % (11.5-14.5) Platelet Count 125 x10^3/uL (140-400) 135 x10^3/uL (140-400) Neutrophils (%) (Auto) 82 % (31-73) 77 % (31-73) Lymphocytes (%) (Auto) 5 % (24-48) 7 % (24-48) Monocytes (%) (Auto) 10 % (0-9) 13 % (0-9) Eosinophils (%) (Auto) 3 % (0-3) 3 % (0-3) Basophils (%) (Auto) 0 % (0-3) 0 % (0-3) Neutrophils # (Auto) 10.5 x10^3uL (1.8-7.7) 8.2 x10^3uL (1.8-7.7) Lymphocytes # (Auto) 0.7 x10^3/uL (1.0-4.8) 0.7 x10^3/uL (1.0-4.8) Monocytes # (Auto) 1.3 x10^3/uL (0.0-1.1) 1.4 x10^3/uL (0.0-1.1) Eosinophils # (Auto) 0.4 x10^3/uL (0.0-0.7) 0.3 x10^3/uL (0.0-0.7) Basophils # (Auto) 0.0 x10^3/uL (0.0-0.2) 0.0 x10^3/uL (0.0-0.2) Sodium Level 139 mmol/L (136-145) 137 mmol/L (136-145) Potassium Level 2.9 mmol/L (3.5-5.1) 3.3 mmol/L (3.5-5.1) Chloride Level 101 mmol/L (98-107) 101 mmol/L (98-107) Carbon Dioxide Level 28 mmol/L (21-32) 28 mmol/L (21-32) Anion Gap 10 (6-14) 8 (6-14) Blood Urea Nitrogen 15 mg/dL (8-26) 15 mg/dL (8-26) Creatinine 0.9 mg/dL (0.7-1.3) 0.9 mg/dL (0.7-1.3) Estimated GFR (Cockcroft-Gault) 98.5 98.2 Glucose Level 99 mg/dL (70-99) 104 mg/dL (70-99) Calcium Level 8.9 mg/dL (8.5-10.1) 8.9 mg/dL (8.5-10.1) Magnesium Level 1.9 mg/dL (1.8-2.4) Laboratory Tests Test 09/23/17 04:45 White Blood Count 10.6 x10^3/uL (4.0-11.0) Red Blood Count 4.36 x10^6/uL (4.30-5.70) Hemoglobin 13.5 g/dL (13.0-17.5) Hematocrit 38.5 % (39.0-53.0) Mean Corpuscular Volume 88 fL (79-100) Mean Corpuscular Hemoglobin 31 pg (25-35) Mean Corpuscular Hemoglobin Concent 35 g/dL (31-37) Red Cell Distribution Width 14.4 % (11.5-14.5) Platelet Count 135 x10^3/uL (140-400) Neutrophils (%) (Auto) 77 % (31-73) Lymphocytes (%) (Auto) 7 % (24-48) Monocytes (%) (Auto) 13 % (0-9) Eosinophils (%) (Auto) 3 % (0-3) Basophils (%) (Auto) 0 % (0-3) Neutrophils # (Auto) 8.2 x10^3uL (1.8-7.7) Lymphocytes # (Auto) 0.7 x10^3/uL (1.0-4.8) Monocytes # (Auto) 1.4 x10^3/uL (0.0-1.1) Eosinophils # (Auto) 0.3 x10^3/uL (0.0-0.7) Basophils # (Auto) 0.0 x10^3/uL (0.0-0.2) Sodium Level 137 mmol/L (136-145) Potassium Level 3.3 mmol/L (3.5-5.1) Chloride Level 101 mmol/L (98-107) Carbon Dioxide Level 28 mmol/L (21-32) Anion Gap 8 (6-14) Blood Urea Nitrogen 15 mg/dL (8-26) Creatinine 0.9 mg/dL (0.7-1.3) Estimated GFR (Cockcroft-Gault) 98.2 Glucose Level 104 mg/dL (70-99) Calcium Level 8.9 mg/dL (8.5-10.1) Medications Active Scripts Medications Dose Route/Sig Max Daily Dose Days Date Category Melatonin 3 Mg Tablet 3 Mg PO HS 05/15/17 Reported Amitiza (Lubiprostone) 8 Mcg Capsule 8 Mcg PO BID PRN 05/15/17 Reported Refresh Optive Eye Drops (Carboxymethylcellulos/Glycerin) 15 Ml Drops 15 Ml OP BID 05/15/17 Reported Combigan Eye Drops (Brimonidine Tartrate/Timolol) 5 Ml Drops 5 Ml OU BID 05/15/17 Reported Amlodipine Besylate 10 Mg Tablet 10 Mg PO DAILY 05/15/17 Reported Potassium Chloride 20 Meq Tab.er.prt 20 Meq PO BID 08/31/15 Reported Latanoprost 2.5 Ml Drops 1 Drop LEFTEYE HS 02/26/15 Reported Namenda (Memantine Hcl) 10 Mg Tablet 10 Mg PO BID 02/26/15 Reported Donepezil Hcl 10 Mg Tablet 10 Mg PO HS 02/26/15 Reported Allopurinol 300 Mg Tablet 300 Mg PO DAILY 02/26/15 Reported Impression . IMPRESSION: 1. Aspiration pneumonia. 2. Fever secondary to above. 3. Acute toxic encephalopathy, present upon admission. 4. Abnormal x-ray. 5. Severe dementia. 6. Hypertension. Plan . D/W FAMILY WILL CONSULT PALLIATIVE CARE SPOKE WITH FAMILY THEY ARE CONSIDERING HOME HOSPICE 1. Concur with current medical regimen. 2. Nebulized treatment. 3. Deep venous thrombosis prophylaxis. 4. The patient may require mittens to prevent any harm to himself, he is pulling on tubes and wires. RIP JONES MD Sep 23, 2017 11:12
[2017-09-23 15:00] VITALS: BP 139/90
[2017-09-23] MEDS: ENOXAPARIN 40 MG/0.4 ML SYRINGE. SQ SCH (15:45)
--- NOTE | 2017-09-23 18:48 | PDOC2 ---
PALLIATIVE CARE Palliative Care Note Palliative Care Consult requested by Dr. Martínez to discuss hospice care. Patient drowsy. Did not awaken. Diagnosis: Dementia; Aspiration pneumonia; sepsis--resolved.hyperglycemia Met with Idalia, sons Vamsi Reynoso and daughters Cassie and Latha. Code Status: DNR/DNI states patient has AD but unable to find the document. Patient is on Dysphagia II diet with thin liquids. Has eating 100% last 2 meals. states patient eats well at home but noticed chocking episodes lately. Albumin 3.7 weight loss of 12 pounds since Oct 2016 Walks with Walker. Decline in verbal ability.--saying only few words. Family describes him and "family man" always helping others, intelligent; Worked in [employer] 9 years in [employer]. Enjoyed gardening; 56years. Family has communicated with Cr Govea. The DON will be here to evaluate patient. does not feel she can care for him at home any longer. Would need hired caregivers if patient needed to go home. Does not qualify for IP Hospice. Family wants to focus on comfort. Plan: Code Status Confirmed. Outside the Hospital DNR/DNI form signed by . Senior Property Manager Care evaluation by Cr in am Family want to focus on comfort. DELIA GUTIERRES Sep 23, 2017 18:48
[2017-09-23 19:50] VITALS: BP 145/84
[2017-09-23 23:05] VITALS: BP 155/81
[2017-09-23] MEDS: LATANOPROST 0.005% OPHTH SOLUTION 2.5ML BOTTLE. OU SCH (23:26)
[2017-09-24 03:25] VITALS: BP 151/78
[2017-09-24] MEDS: PIPERACILLIN/TAZO IV Push 3.375 GM VIAL. IVP SCH ×2 (06:47→12:37)
[2017-09-24 07:00] VITALS: BP 164/88
--- NOTE | 2017-09-24 09:44 | PDOC ---
PROGRESS NOTES Subjective Subjective Mr. Culp was once again non-communicative. The family was at the bedside speaking to the hospice house disability representative. 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 I had a conversation with the pt's about the prognosis and the options on 09/23/17 She decided that she could not take care of him at home by herself and that he would be better in a Hospice House. The family is present and are currently talking to the disability representative of the hospice house. Comment Review of Relevant I have reviewed the following items davey (where applicable) has been applied. Labs Laboratory Tests Test 09/23/17 04:45 White Blood Count 10.6 x10^3/uL (4.0-11.0) Red Blood Count 4.36 x10^6/uL (4.30-5.70) Hemoglobin 13.5 g/dL (13.0-17.5) Hematocrit 38.5 % (39.0-53.0) Mean Corpuscular Volume 88 fL (79-100) Mean Corpuscular Hemoglobin 31 pg (25-35) Mean Corpuscular Hemoglobin Concent 35 g/dL (31-37) Red Cell Distribution Width 14.4 % (11.5-14.5) Platelet Count 135 x10^3/uL (140-400) Neutrophils (%) (Auto) 77 % (31-73) Lymphocytes (%) (Auto) 7 % (24-48) Monocytes (%) (Auto) 13 % (0-9) Eosinophils (%) (Auto) 3 % (0-3) Basophils (%) (Auto) 0 % (0-3) Neutrophils # (Auto) 8.2 x10^3uL (1.8-7.7) Lymphocytes # (Auto) 0.7 x10^3/uL (1.0-4.8) Monocytes # (Auto) 1.4 x10^3/uL (0.0-1.1) Eosinophils # (Auto) 0.3 x10^3/uL (0.0-0.7) Basophils # (Auto) 0.0 x10^3/uL (0.0-0.2) Sodium Level 137 mmol/L (136-145) Potassium Level 3.3 mmol/L (3.5-5.1) Chloride Level 101 mmol/L (98-107) Carbon Dioxide Level 28 mmol/L (21-32) Anion Gap 8 (6-14) Blood Urea Nitrogen 15 mg/dL (8-26) Creatinine 0.9 mg/dL (0.7-1.3) Estimated GFR (Cockcroft-Gault) 98.2 Glucose Level 104 mg/dL (70-99) Calcium Level 8.9 mg/dL (8.5-10.1) Microbiology 09/20/17 Blood Culture - Preliminary, Resulted NO GROWTH AFTER 3 DAYS Medications Current Medications Sodium Chloride 1,000 ml @ 500 mls/hr Q2H IV Last administered on 09/20/17 19:44; Start 09/20/17 at 14:26; Stop 09/20/17 at 18:55; Status DC Piperacillin Sod/ Tazobactam Sod (Zosyn Per Pharmacy) 1 each PRN DAILY PRN MC SEE COMMENTS; Start 09/20/17 at 15:45 Ondansetron HCl (Zofran) 4 mg PRN Q8HRS PRN IV NAUSEA/VOMITING; Start at 15:45; Stop 09/21/17 at 15:44; Status DC Sodium Chloride 1,000 ml @ 125 mls/hr Q8H IV Last administered on 09/21/17 00:39; Start 09/20/17 at 15:42; Stop 09/21/17 at 15:41; Status DC Acetaminophen (Tylenol) 650 mg PRN Q4HRS PRN PO FEVER; Start 09/20/17 at 15:45 ; Stop 09/21/17 at 15:44; Status DC Piperacillin Sod/ Tazobactam Sod 3.375 gm/Dextrose 50 ml @ 100 mls/hr Q6HRS IV Last administered on 09/20/17 17:33; Start 09/20/17 at 18:00; Stop at 05:00; Status DC Amino Acids/ Glycerin/ Electrolytes 1,000 ml @ 80 mls/hr [id number] IV Last administered on 09/22/17 06:50; Start 09/20/17 at 16:00; Stop 09/22/17 at 13 :01; Status DC Enoxaparin Sodium (Lovenox 40mg Syringe) 40 mg Q24H SQ Last administered on 17:07; Start 09/20/17 at 15:45 Famotidine (Pepcid) 20 mg BID IVP Last administered on 09/22/17 21:49; Start 09/20/17 at 21:00; Stop 09/23/17 at 09:13; Status DC Acetaminophen (Tylenol) 500 mg PRN Q6HRS PRN PO MILD PAIN / TEMP; Start at 15:45 Acetaminophen (Tylenol) 120 mg PRN Q6HRS PRN CO MILD PAIN / TEMP Last administered on 09/20/17 17:34; Start 09/20/17 at 15:45 Latanoprost (Xalatan) 1 drop HS OU Last administered on 09/23/17 23:26; Start 09/20/17 at 21:00 Haloperidol Lactate (Haldol) 5 mg PRN Q6HRS PRN IVP AGITATION Last administered on 09/20/17 22:26; Start 09/20/17 at 17:15 Piperacillin Sod/ Tazobactam Sod (Zosyn) 3.375 gm Q6HRS IVP Last administered on 09/24/17 06:47; Start 09/21/17 at 06:00 Piperacillin Sod/ Tazobactam Sod 3.375 gm/Dextrose 50 ml @ 100 mls/hr 1X ONCE IV Last administered on 09/21/17 00:39; Start 09/21/17 at 00:30; Stop 09/21 at 00:59; Status DC Potassium Chloride 100 ml @ 100 mls/hr Q1H IV Last administered on 09/21/17 14:57; Start 09/21/17 at 10:30; Stop 09/21/17 at 14:29; Status DC Lactobacillus Rhamnosus (Culturelle) 1 cap BID PO Last administered on 22:13; Start 09/21/17 at 21:00 Potassium Chloride 100 ml @ 100 mls/hr Q1H IV Last administered on 09/22/17 12:01; Start 09/22/17 at 08:00; Stop 09/22/17 at 11:59; Status DC Potassium Chloride (KCl Oral Soln) 40 meq 1X ONCE PO Last administered on 08:28; Start 09/22/17 at 08:00; Stop 09/22/17 at 08:01; Status DC Potassium Chloride (KCl Oral Soln) 40 meq 1X ONCE PEG Last administered on 15:24; Start 09/23/17 at 09:30; Stop 09/23/17 at 09:31; Status DC Active Scripts Active Reported Haloperidol 0.5 Mg Tablet 0.5 Mg PO BID Multivitamins (Multivitamin) 1 Each Tablet 1 Tab PO DAILY Avodart (Dutasteride) 0.5 Mg Capsule 1 Cap PO HS Melatonin 3 Mg Tablet 3 Mg PO HS Amitiza (Lubiprostone) 8 Mcg Capsule 8 Mcg PO BID PRN Refresh Optive Eye Drops (Carboxymethylcellulos/Glycerin) 15 Ml Drops 15 Ml OP BID Combigan Eye Drops (Brimonidine Tartrate/Timolol) 5 Ml Drops 5 Ml OU BID Amlodipine Besylate 10 Mg Tablet 10 Mg PO DAILY Potassium Chloride 20 Meq Tab.er.prt 20 Meq PO BID Latanoprost 2.5 Ml Drops 1 Drop LEFTEYE HS Namenda (Memantine Hcl) 10 Mg Tablet 10 Mg PO BID Donepezil Hcl 10 Mg Tablet 10 Mg PO HS Allopurinol 300 Mg Tablet 300 Mg PO DAILY Vitals/I & O Vital Sign - Last 24 Hours 09/23/17 09/23/17 09/23/17 09/23/17 11:00 15:00 19:50 20:25 Temp 98.1 98.1 99.4 98.1 98.1 99.4 Pulse 84 106 74 Resp 20 20 20 B/P (MAP) 156/87 (110) 139/90 (106) 145/84 (104) Pulse Ox 92 93 94 O2 Delivery Room Air Room Air Room Air Room Air 09/23/17 09/24/17 23:05 03:25 Temp 98.5 99.2 98.5 99.2 Pulse 90 79 Resp 18 18 B/P (MAP) 155/81 (105) 151/78 (102) Pulse Ox 94 93 O2 Delivery Room Air Room Air YANELY WASHINGTON MD Sep 24, 2017 09:44
[2017-09-24 11:00] VITALS: BP 165/82
--- NOTE | 2017-09-24 13:07 | PDOC ---
PULMONARY PROGRESS NOTES Subjective NO SOA DOES NOT FOLLOW COMMANDS Vitals Vital Signs Date Time Temp Pulse Resp B/P (MAP) Pulse Ox O2 Delivery O2 Flow Rate FiO2 09/24/17 11:00 98.1 103 20 165/82 (109) 98 Room Air 98.1 Lungs: Other (decrease ) Cardiovascular: S1, S2 Abdomen: Soft, Non-tender Extremities: No Edema Skin: Warm Labs Laboratory Tests Test 09/23/17 04:45 White Blood Count 10.6 x10^3/uL (4.0-11.0) Red Blood Count 4.36 x10^6/uL (4.30-5.70) Hemoglobin 13.5 g/dL (13.0-17.5) Hematocrit 38.5 % (39.0-53.0) Mean Corpuscular Volume 88 fL (79-100) Mean Corpuscular Hemoglobin 31 pg (25-35) Mean Corpuscular Hemoglobin Concent 35 g/dL (31-37) Red Cell Distribution Width 14.4 % (11.5-14.5) Platelet Count 135 x10^3/uL (140-400) Neutrophils (%) (Auto) 77 % (31-73) Lymphocytes (%) (Auto) 7 % (24-48) Monocytes (%) (Auto) 13 % (0-9) Eosinophils (%) (Auto) 3 % (0-3) Basophils (%) (Auto) 0 % (0-3) Neutrophils # (Auto) 8.2 x10^3uL (1.8-7.7) Lymphocytes # (Auto) 0.7 x10^3/uL (1.0-4.8) Monocytes # (Auto) 1.4 x10^3/uL (0.0-1.1) Eosinophils # (Auto) 0.3 x10^3/uL (0.0-0.7) Basophils # (Auto) 0.0 x10^3/uL (0.0-0.2) Sodium Level 137 mmol/L (136-145) Potassium Level 3.3 mmol/L (3.5-5.1) Chloride Level 101 mmol/L (98-107) Carbon Dioxide Level 28 mmol/L (21-32) Anion Gap 8 (6-14) Blood Urea Nitrogen 15 mg/dL (8-26) Creatinine 0.9 mg/dL (0.7-1.3) Estimated GFR (Cockcroft-Gault) 98.2 Glucose Level 104 mg/dL (70-99) Calcium Level 8.9 mg/dL (8.5-10.1) Medications Active Scripts Medications Dose Route/Sig Max Daily Dose Days Date Category Melatonin 3 Mg Tablet 3 Mg PO HS 05/15/17 Reported Amitiza (Lubiprostone) 8 Mcg Capsule 8 Mcg PO BID PRN 05/15/17 Reported Refresh Optive Eye Drops (Carboxymethylcellulos/Glycerin) 15 Ml Drops 15 Ml OP BID 05/15/17 Reported Combigan Eye Drops (Brimonidine Tartrate/Timolol) 5 Ml Drops 5 Ml OU BID 05/15/17 Reported Amlodipine Besylate 10 Mg Tablet 10 Mg PO DAILY 05/15/17 Reported Potassium Chloride 20 Meq Tab.er.prt 20 Meq PO BID 08/31/15 Reported Latanoprost 2.5 Ml Drops 1 Drop LEFTEYE HS 02/26/15 Reported Namenda (Memantine Hcl) 10 Mg Tablet 10 Mg PO BID 02/26/15 Reported Donepezil Hcl 10 Mg Tablet 10 Mg PO HS 02/26/15 Reported Allopurinol 300 Mg Tablet 300 Mg PO DAILY 02/26/15 Reported Impression . IMPRESSION: 1. Aspiration pneumonia. 2. Fever secondary to above. 3. Acute toxic encephalopathy, present upon admission. 4. Abnormal x-ray. 5. Severe dementia. 6. Hypertension. Plan . HOME HOSPICE 1. Concur with current medical regimen. 2. Nebulized treatment. 3. Deep venous thrombosis prophylaxis. PATRIZIA REINA MD Sep 24, 2017 13:07
--- NOTE | 2017-09-24 14:11 | PDOC2 ---
PALLIATIVE CARE Palliative Care Note Palliative Care Met with patient's family: 2 sons, , daughter and her . Family has met with [employer] insurance account representative and now discussing goals of care. Hospice vs aggressive care with PT/OT. Family wants to continue with their goal of comfort care. [facility] has evaluated patient and will accept on services. Family met with staff from [facility]. Discussing patient needs and payment options/level of care options. adamant that patient would not want feeding tube. Understands option of pleasure feeding. states "I want him to eat what he can" Understands risk of aspiration. Family continues to focus on comfort care. (Hospice--[place]) Family will determine along with representatives from [place] and [employer] which facility can best meet his needs. Code Status: DNR/DNI Spoke with Carlos MICHELLE who is assisting with discharge plan. DELIA GUTIERRES Sep 24, 2017 14:11
[2017-09-24 15:00] VITALS: BP 169/97
== END 2017-09-24 16:50 | disposition hospice, inpatient (51) | DRG 871 ==
LOC: ER 13:44 → 2 NORTH 14:55
PROVIDERS: ADMIT Internal Medicine; ATTEND Internal Medicine
DX: A41.9 Sepsis, unspecified organism (principal); G92 Toxic encephalopathy; J69.0 Pneumonitis due to inhalation of food and vomit; I10 Essential (primary) hypertension; H40.9 Unspecified glaucoma; F03.90 Unspecified dementia, unspecified severity, without behavioral disturbance, psychotic disturbance, mood disturbance, and anxiety; N40.0 Benign prostatic hyperplasia without lower urinary tract symptoms; M10.9 Gout, unspecified; R65.20 Severe sepsis without septic shock; E86.0 Dehydration; R73.9 Hyperglycemia, unspecified; K21.9 Gastro-esophageal reflux disease without esophagitis; Z51.5 Encounter for palliative care; M19.90 Unspecified osteoarthritis, unspecified site; G24.5 Blepharospasm; R13.10 Dysphagia, unspecified; E87.6 Hypokalemia; Z66 Do not resuscitate; Z88.8 Allergy status to other drugs, medicaments and biological substances; Z87.891 Personal history of nicotine dependence; Z86.73 Personal history of transient ischemic attack (TIA), and cerebral infarction without residual deficits
CPT/HCPCS: 36415; 71010; 80048; 80053; 81001; 83605; 83735; 85007; 85025; 87040; 93005; J1630; J1650; J2543; J3480; J7030; S0028; 92526; 92610; 97116; 97530; 99291-25